=== PATIENT | female | born 1940 | race Caucasian/White ===

== ENCOUNTER → 2017-11-01 09:50 | Outpatient (CLI) | payer MEDICARE, MEDICAID, SELFPAY ==
--- NOTE | 2017-11-01 14:03 | CT_ITS ---
CT chest wo con HISTORY: Pulmonary fibrosis follow-up ITS.REASON: ABNORMAL LUNG IMAGING, COPD ORDERING PHYSICIAN: Vladimir Swenson MD PATIENT AGE: 77 years TECHNIQUE: Axial images obtained. Sagittal and coronal reformatted images are also generated and reviewed. CONTRAST: 75ml Isovue 370 I.V. COMPARISON: 10/07/2016 FINDINGS: Atherosclerotic changes involve the thoracic aorta and there are coronary artery calcifications. Normal heart size. No evidence of pericardial effusion. There are severe centrilobular emphysematous changes with bilateral bulla and scattered fibrotic changes there is some increasing peripheral density in the right upper lobe anteriorly and may represent ongoing fibrotic changes. Cannot exclude superimposed mild consolidation. There is a 6 mm nodular opacity within the right minor fissure Bullous changes are present in the lung bases posteriorly. Pulmonary fibrotic changes are noted in the left upper lobe slightly progressed. No acute bony anomalies. IMPRESSION: Extensive emphysematous changes with pulmonary fibrosis which is slightly worsening in the upper lobes with slight increased consolidation in the right upper lobe and left upper lobe medially. New nodular opacity within the right minor fissure measuring 6 mm probably related to fissural lymph node. Coronary artery disease
== END ==
PROVIDERS: Family Provider Nurse Practitioner Family; PCP Nurse Practitioner Family; Visit Provider Internal Medicine
DX: J43.9 Emphysema, unspecified (principal); R91.8 Other nonspecific abnormal finding of lung field
CPT/HCPCS: 71250; 94726

== ENCOUNTER → 2017-11-14 14:36 | Outpatient (POV) | payer MEDICARE, MEDICAID, SELFPAY | PROVIDERS: Family Provider Nurse Practitioner Family; PCP Nurse Practitioner Family; Visit Provider Internal Medicine | DX: Z00.00 Encounter for general adult medical examination without abnormal findings (principal) ==

== ENCOUNTER → 2017-11-20 14:10 | Outpatient (POV) | payer MEDICARE, MEDICAID, SELFPAY ==
[2017-11-20 15:03] VITALS: BP 135/69; PULSE 64; RESP 19; O2SAT 99; BMI 22.4
--- NOTE | 2017-11-20 16:55 | PC.PHONENOTE ---
called in Rx for Flexeril 10mg TID with 2 refills to [facility] in [place] and cancelled pt RX for Zanaflex.
--- NOTE | 2017-11-20 17:10 | P.CONS_ITS ---
[facility] Pain Management SOAP Note Subjective:: Patient is a pleasant 77-year-old white female who presents today to follow-up after medial branch blocks. Patient states she is doing very well after this injection she states that she gets 70-80% relief lasting over 8 weeks. Patient states she is having some muscle spasms. She was currently on Zanaflex. She would like to discuss potentially a different medication. Patient rates her pain a 4 out of 10 today. Patient states her pain is achy and dull. ROS General: no recent weight change, no fever, no sleep disturbances Respiratory: no cough, no shortness of air, no recurring pulmonary infections Cardiovascular/Peripheral Vascular: No chest pain, No palpitations, no edema, no shortness of breath. Gastrointestinal: no incontinence, normal bowel movements reported Genitourinary: no incontinence Musculoskeletal: Back pain Psychiatric: normal mood/ affect, Neurological: [denies weakness in extremities], and she has balance issues at times Objective:: Physical Exam General: Alert and oriented x3, no acute distress, pleasant and cooperative, [ on room air] Lungs: Resps E/U, Symmetrical chest expansion, Eyes: PERRL Musculoskeletal: Flexion and extension of lumbar spine somewhat guarded secondary to pain, deep tendon reflexes normal, strength in upper and lower extremities [5/5], [abnormal gait noted] Neurological: speech clear, apron trimmer equal, no gross sensory deficits Assessment:: Degenerative disc disease of the lumbar spine, lumbar radiculopathy, muscle spasm Plan:: We will discontinue the patient's Zanaflex and start her on Flexeril 10 mg 1 p.o. 3 times daily. Patient is also taking tramadol 50 mg 1 p.o. 3 times daily. She states she is having no side effects. Patient is not in need of any prescriptions today patient's [facility] #[id number] reviewed and appropriate. We will have the patient follow-up in 3 months. Patient will call us if she needs an injection before this. This note was dictated using voice recognition software may contain errors or omissions
== END ==
PROVIDERS: Family Provider Nurse Practitioner Family; PCP Nurse Practitioner Family; Visit Provider Clinical Nurse Specialist Family Health
DX: M54.16 Radiculopathy, lumbar region (principal)
CPT/HCPCS: 99212

== ENCOUNTER → 2017-12-13 07:20 | Outpatient (CLI) | payer MEDICARE, MEDICAID, SELFPAY ==
--- NOTE | 2017-12-13 07:28 | NM_ITS ---
History and Indications: Coronary artery disease, hypertension, hyperlipidemia and chest pain Procedure: Patient received a 0.4 mg of Lexiscan, resting heart rate was 67 bpm resting blood pressure 163/88, with Lexiscan maximum heart rate achieved was 87 bpm is less than 85% of the maximum predicted heart rate and a blood pressure was 130/69. With Lexiscan patient complained of mild shortness of breath and stomach discomfort. Electrocardiogram: Resting electrocardiogram showed sinus rhythm, with Lexiscan there is less than 1.[address] segment depression noted from the baseline EKG. The EKG portion of the Lexiscan Myoview is nondiagnostic. Cardiac stress and resting SPECT images: Cardiac stress and rest SPECT images were obtained using technetium 99 Myoview 10.6 mCi at rest and 31.7 mCi at stress, gated SPECT further analysis of segmental wall motion and calculation of the ejection fraction also done. Cardiac stress and rest images show a mild fixed defect in the anterior wall with normal contractility in the gated SPECT is likely secondary to soft tissue attenuation, no reversible ischemia seen. Computer derived ejection fraction is over 65% with no obvious regional wall motion abnormality, right ventricle is mildly enlarged with normal contractility. Conclusion: 1. The EKG portion of the Lexiscan Myoview is nondiagnostic. 2. No obvious scintigraphic evidence of reversible ischemia seen, obturator derived ejection fraction is over 65% with no obvious regional wall motion abnormality, right ventricle is mildly enlarged with normal contractility.
--- NOTE | 2017-12-13 07:57 | HMH.ITSHM ---
LEVOTHYROXINE CELEBREX ASA ATORVASTATIN TRAMADOL LOSARTAN GABAPENTIN POTASSIUM METOPROLOL TIZANIDINE RAPRENATAL MONTELUKAST NASAL SPRAY VENTOLIN
--- NOTE | 2017-12-13 08:35 | CA_ITS ---
PROCEDURE: 2-D M-mode and color Doppler study INDICATIONS FOR THE TEST: Chest pain X COPDX Heart Murmur Tobacco SmokingEX Palpitations Fatigue Syncope Edema Hypertension Diabetes Mellitus Rheumatic Fever SOB GUZMÁN Obesity HyperlipidemiaX Family History HD Additional History CAD PATIENT INFORMATION HEIGHT: 60 WEIGHT:118 GENDER: Female B/P:135/73 2-D/M-MODE INTERPRETATION: 2-D MEASUREMENTS OBSERVED VALUES IN CMS Right Ventricular Dimension (RVDd) 2.0 Interventricular Septum (Thickness)(IVsd) .7 Left Ventricular Internal Dimensions(LVIDd) 5.3 Left Ventricular Posterior Wall (Thickness)(LVPWd) .8 Aortic Root 3.8 Aortic Cusp Separation 1.6 Left Atrial Dimensions (LAD) 2.5 2D 1. Left atrium is qualitatively mildly enlarged, left ventricle is normal size, there is no concentric left ventricular hypertrophy, visually estimated ejection fraction 55% with no obvious regional wall motion abnormality. 2. The right atrium and right ventricle are mildly enlarged with normal contractility. 3. The aortic valve is minimally thickened and fibrosed. 4. The mitral and tricuspid valve leaflets are minimally thickened. 5. The pulmonic valve is poorly visualized. 6. No significant pericardial effusion noted. DOPPLER INTERROGATION: Aortic, mitral and tricuspid valvular presence of trace aortic, mild mitral and tricuspid regurgitation, calculated right ventricular systolic pressure 62 mmHg consistent with moderate pulmonary hypertension, grade 1 diastolic dysfunction seen with tissue Doppler evidence of raised left atrial pressure. CONCLUSION: 1. Mild biatrial enlargement, normal left ventricular size, visually estimated ejection fraction 55% with no obvious regional wall motion abnormality, grade 1 diastolic dysfunction seen with tissue Doppler evidence of raised left atrial pressure. 2. Mildly enlarged right ventricle with normal contractility. 3. Trace aortic, mild mitral and tricuspid regurgitation, calculated right ventricular systolic pressure 62 mmHg consistent with moderate pulmonary hypertension. 4. No significant pericardial effusion noted.
== END ==
PROVIDERS: Family Provider Nurse Practitioner Family; PCP Nurse Practitioner Family; Visit Provider Internal Medicine
DX: R07.9 Chest pain, unspecified (principal)
CPT/HCPCS: 78454; 93306; A9502; J2785

== ENCOUNTER → 2017-12-15 15:25 | Outpatient (CLI) | payer MEDICARE, MEDICAID, SELFPAY ==
[2017-12-15 18:33] LABS: Alanine Aminotransferase 22 U/L (12-78); Albumin/Globulin Ratio 1.4 (1.1-1.8); Alkaline Phosphatase 85 U/L (46-116); Anion Gap 10.1 mEq/L (5-15); Aspartate Amino Transferase 23 U/L (15-37); Bilirubin,Total 0.6 mg/dL (0.2-1.0); Blood Urea Nitrogen 32 mg/dL (7-18); Calcium 9.1 mg/dL (8.5-10.1); Carbon Dioxide 30 mmol/L (21.0-32.0); Chloride 105 mmol/L (98-107); Chol/HDL Ratio 2.1 (1-3.5); Cholesterol 118 mg/dL (140-200); Creatinine,Serum 0.69 mg/dL (0.55-1.02); Estimated Glomerular Filt Rate 82 ml/min (>60); Free T4 (Free Thyroxine) 1.21 ng/dl (0.76-1.46); GFR (African American) 100 ML/MIN (>60); Globulin 2.9 gm/dl (1.3-3.2); Glucose 85 mg/dL (74-106); HDL Cholesterol 55 mg/dL (29-89); LDL Cholesterol 53 mg/dL (0-130); Potassium 4.1 mmoL/L (3.5-5.1); Sodium 141 mmol/L (136-145); Thyroid Stimulating Hormone 0.27 uIU/ml (0.358-3.740); Total Protein,Serum 6.9 gm/dL (6.4-8.2); Triglycerides 49 mg/dL (30-200); VLDL Cholesterol 10 mg/dL (0-40)
[2017-12-15 22:20] LABS: Basophils % 0.6 % (0.1-2.0); Eosinophils # 0.2 K/mm3 (0.0-0.4); Eosinophils % 6.3 % (0.1-12.0); Hematocrit 42.1 % (37.0-47.0); Hemoglobin 13.5 g/dL (12.2-16.2); Lymphocytes # 1.4 K/mm3 (0.7-4.5); Mean Corpuscular Hemoglobin 31.8 pg (27.0-31.2); Mean Corpuscular Volume 99.2 fl (81-99); Mean Platelet Volume 9.6 fl (7.4-10.4); Monocytes # 0.2 K/mm3 (0.1-1.0); Monocytes % 5.5 % (1.7-9.3); Neutrophils # 1.4 K/mm3 (1.8-7.8); Neutrophils % 43.6 % (37.0-80.0); Platelet Count 164 K/mm3 (142-424); Red Blood Count 4.24 M/mm3 (4.20-5.40); Red Cell Distribution Width 12.6 % (11.5-17.5); White Blood Count 3.3 K/mm3 (4.8-10.8)
[2017-12-19 15:37] LABS: Vitamin D 25 Hydroxy 32.9 ng/mL (30.0-100.0)
== END ==
PROVIDERS: Visit Provider Nurse Practitioner Family
DX: R94.31 Abnormal electrocardiogram [ECG] [EKG] (principal); R53.83 Other fatigue; R00.1 Bradycardia, unspecified; E78.5 Hyperlipidemia, unspecified
CPT/HCPCS: 80053; 80061; 82652; 84439; 84443; 85025

== ENCOUNTER → 2018-01-17 15:49 | Outpatient (CLI) | payer MEDICARE, MEDICAID, SELFPAY ==
[2018-01-17 16:25] LABS: Basophils % 0.5 % (0.1-2.0); Eosinophils # 0.2 K/mm3 (0.0-0.4); Eosinophils % 4.9 % (0.1-12.0); Hematocrit 42.3 % (37.0-47.0); Hemoglobin 13.6 g/dL (12.2-16.2); Lymphocytes # 1.4 K/mm3 (0.7-4.5); Lymphocytes % 41.6 K/mm3 (10-50); Mean Corpuscular HGB Conc 32.2 g/dL (31.8-35.4); Mean Corpuscular Hemoglobin 30.7 pg (27.0-31.2); Mean Corpuscular Volume 95.2 fl (81-99); Mean Platelet Volume 8.1 fl (7.4-10.4); Monocytes # 0.2 K/mm3 (0.1-1.0); Monocytes % 4.9 % (1.7-9.3); Neutrophils # 1.6 K/mm3 (1.8-7.8); Neutrophils % 48.2 % (37.0-80.0); Platelet Count 159 K/mm3 (142-424); Red Blood Count 4.45 M/mm3 (4.20-5.40); Red Cell Distribution Width 12.7 % (11.5-17.5); White Blood Count 3.4 K/mm3 (4.8-10.8)
[2018-01-17 17:22] LABS: Alanine Aminotransferase 22 U/L (12-78); Albumin Level 3.9 gm/dL (3.4-5.0); Albumin/Globulin Ratio 1.3 (1.1-1.8); Alkaline Phosphatase 85 U/L (46-116); Anion Gap 9.5 mEq/L (5-15); Aspartate Amino Transferase 26 U/L (15-37); Bilirubin,Total 0.4 mg/dL (0.2-1.0); Blood Urea Nitrogen 25 mg/dL (7-18); Calcium 9.4 mg/dL (8.5-10.1); Carbon Dioxide 32 mmol/L (21.0-32.0); Chloride 108 mmol/L (98-107); Creatinine,Serum 0.72 mg/dL (0.55-1.02); Estimated Glomerular Filt Rate 79 ml/min (>60); GFR (African American) 95 ML/MIN (>60); Glucose 90 mg/dL (74-106); Potassium 4.5 mmoL/L (3.5-5.1); Sodium 145 mmol/L (136-145); Total Protein,Serum 6.9 gm/dL (6.4-8.2)
[2018-01-19 16:25] LABS: Albumin 3.8 g/dL (2.9-4.4); Alpha-1-Globulin 0.2 g/dL (0.0-0.4); Alpha-2-Globulin 0.9 g/dL (0.4-1.0); Protein, Total 6.7 g/dL (6.0-8.5)
== END ==
PROVIDERS: Visit Provider Internal Medicine
DX: D72.819 Decreased white blood cell count, unspecified (principal)
CPT/HCPCS: 36415; 80053; 84165; 85025

== ENCOUNTER 2018-01-22 23:51 | Observation (INO) ==
[2018-01-23 00:29] LABS: Basophils % 0.3 % (0.1-2.0); Eosinophils # 0.1 K/mm3 (0.0-0.4); Eosinophils % 0.7 % (0.1-12.0); Hematocrit 43.5 % (37.0-47.0); Hemoglobin 14.3 g/dL (12.2-16.2); Lymphocytes # 1.6 K/mm3 (0.7-4.5); Lymphocytes % 19.2 K/mm3 (10-50); Mean Corpuscular HGB Conc 32.8 g/dL (31.8-35.4); Mean Corpuscular Hemoglobin 31.2 pg (27.0-31.2); Mean Corpuscular Volume 95.1 fl (81-99); Mean Platelet Volume 8.3 fl (7.4-10.4); Monocytes # 0.4 K/mm3 (0.1-1.0); Monocytes % 4.5 % (1.7-9.3); Neutrophils # 6.2 K/mm3 (1.8-7.8); Neutrophils % 75.3 % (37.0-80.0); Platelet Count 156 K/mm3 (142-424); Red Blood Count 4.58 M/mm3 (4.20-5.40); Red Cell Distribution Width 12.8 % (11.5-17.5); White Blood Count 8.3 K/mm3 (4.8-10.8)
[2018-01-23 00:37] LABS: Appearance,Urine CLEAR (Clear); Bilirubin,Urine Negative (Negative); Blood, Urine Negative (Negative); Color,Urine YELLOW (Yellow); Glucose,Urine (UA) Negative (Negative); Ketones,Urine Negative (Negative); Leukocyte Esterase,Urine Negative (Negative); Microscopic, Urine URINE MICROSCOPIC (MICROSCOPIC); PH,Urine 6.5 (5.0-8.5); Protein,Urine Negative (Negative); Specific Gravity, Urine <= 1.005 (1.005-1.030); Urobilinogen,Urine 0.2 EU/dl (0.2)
[2018-01-23 00:45] LABS: Albumin Level 4.2 gm/dL (3.4-5.0); Albumin/Globulin Ratio 1.1 (1.1-1.8); Anion Gap 11.7 mEq/L (5-15); Bilirubin,Total 0.7 mg/dL (0.2-1.0); Calcium 9.5 mg/dL (8.5-10.1); Globulin 3.8 gm/dl (1.3-3.2); Potassium 3.7 mmoL/L (3.5-5.1)
[2018-01-23 00:47] LABS: Bacteria,Urine Trace /lpf; RBC,Urine Occasional #/hpf (0-3)
--- NOTE | 2018-01-23 02:15 | Emergency Department Note ---
ED Disposition Clinical Impression: Colitis Disposition: Admitted as Observation Condition on Discharge: Good - Critical Care Critical Care Time: No Attestation: On 01/22/18, the high probability of a clinically significant, sudden or life threatening deterioration of the following system(s) required my full and direct attention, intervention and personal management. The time I documented below is in addition to time spent performing reported procedures but includes the following listed in this critical care notation. Medical Decision Making - Medical Records Medical records reviewed: Yes: I reviewed the patient's medical records. - [place] Inquiry Pt receiving controlled substance: No Vital Signs: 01/23/18 00:03 01/23/18 02:37 Temperature 98.6 F 98.3 F Temperature Source Oral Oral Pulse Rate [Right Radial] 89 84 Respiratory Rate 14 15 Blood Pressure [Right Arm] 150/81 152/84 Blood Pressure Mean [Right Arm] 104 106 Blood Pressure Source [Right Arm] Automatic Cuff Automatic Cuff Blood Pressure Position [Right Arm] Sitting Sitting 02 Sat by Pulse Oximetry 96 97 Oxygen Delivery Method Room Air Room Air - Lab Data Lab results reviewed: Yes: I reviewed the patient's lab results. Lab Results 01/23/18 00:00: Urine Color Yellow, Urine Appearance Clear, Urine pH 6.5, Ur Specific [place] <= 1.005, Urine Protein Negative, Urine Glucose (UA) Negative, Urine Ketones Negative, Urine Blood Negative, Urine Nitrate Negative, Urine Bilirubin Negative, Urine Urobilinogen 0.2, Ur Leukocyte Esterase Negative, Urine RBC Occasional, Urine Bacteria Trace 01/23/18 00:10: WBC 8.3, RBC 4.58, Hgb 14.3, Hct 43.5, MCV 95.1, MCH 31.2, MCHC 32.8, RDW 12.8, Plt Count 156, MPV 8.3, Neut % (Auto) 75.3, Lymph % (Auto) 19.2 , [place] % (Auto) 4.5, Eos % (Auto) 0.7, Baso % (Auto) 0.3, Neut # (Auto) 6.2, Lymph # (Auto) 1.6, [place] # (Auto) 0.4, Eos # (Auto) 0.1, Baso # (Auto) 0.0 01/23/18 00:10: Sodium 138, Potassium 3.7, Chloride 102, Carbon Dioxide 28, Anion Gap 11.7, BUN 21 H, Creatinine 0.76, Estimated Creat Clear 40, Estimated GFR 74, Est GFR ( Amer) 89, Glucose 91, Calcium 9.5, Total Bilirubin 0.7 , AST 22, ALT 22, Alkaline Phosphatase 86, Total Protein 8.0, Albumin 4.2, Globulin 3.8 H, Albumin/Globulin Ratio 1.1, Amylase 65, Lipase 82 01/23/18 02:20: Lactic Acid 0.5 Result diagrams: 01/23/18 00:10 01/23/18 00:10 Orders (Tests/Meds): ED MEDICATIONS Generic Name Dose Route Start Last Admin Trade Name Freq PRN Reason Stop Dose Admin Sodium Chloride 1,000 mls @ 150 mls/hr 01/23/18 00:30 01/23/18 00:39 Sod Chlor 0.9% 1000ml Bag IV 01/23/18 07:09 150 mls/hr .Q6H40M OWEN Administration Metronidazole 100 mls @ 100 mls/hr 01/23/18 03:00 Flagyl 500mg/100ml Ivpb IV 02/06/18 02:59 Q8H OWEN Protocol Ceftriaxone Sodium 1 gm/ 50 mls @ 100 mls/hr 01/23/18 03:00 Sodium Chloride IV 02/06/18 02:59 Q24H OWEN Protocol Discontinued Medications Generic Name Dose Route Start Last Admin Trade Name Freq PRN Reason Stop Dose Admin Ketorolac Tromethamine 30 mg 01/23/18 02:28 01/23/18 02:59 Toradol 30mg/Ml Vial IV 01/23/18 02:29 Not Given ONCE ONE Morphine Sulfate 2 mg 01/23/18 02:31 01/23/18 02:37 Morphine 2mg/Ml Syringe IV 01/23/18 02:32 2 mg ONCE ONE Administration Ondansetron HCl 4 mg 01/23/18 02:31 01/23/18 02:37 Zofran 4mg/2ml Vial IV 01/23/18 02:32 4 mg ONCE ONE Administration ORDERS Category Date Time Status CT abdomen pelvis wo con Stat Cat Scan 01/23/18 00:16 Taken ESR [Erythrocyte Sedimentation Rate] Stat Lab 01/23/18 00:00 Received - CT Data CT Scan: Abdomen, Pelvis Time Received: 03:[address] Reviewed: Yes: I have viewed the radiologist's interpretation Preliminary Findings: Abnormal (colitis ) Nausea/Vomiting/Diarrhea HPI - General Chief complaint: Abdominal Pain Stated complaint: Pain in right side Time Seen by Provider: 01/23/18 02:11 Mode of Arrival: Ambulatory Source of Information: Patient, Relative, Medical Record Limitations: No Limitations Description of Symptoms (Recalled from ER Triage Doc. by RN): Pt reports right sided abdominal pain - History of Present Illness HPI Narrative: rt sided abd pain which started this afternoon with nausea but no vomiting and no rash or fever and no urinary sx MD complaint: nausea, abdominal pain Onset (ago): day(s) Associated Abdominal Pain: Yes Location of pain: RLQ Severity: moderate Quality: aching Consistency: intermittent - Related Data Home Medications Medication Instructions Recorded Confirmed aspirin 81 mg tablet,delayed 81 mg PO QDAY 10/11/17 01/23/18 release fluticasone 50 mcg/actuation nasal 50 mcg INTRANASAL QDAY PRN 10/11/17 01/23/18 spray,suspension gabapentin 300 mg capsule 300 mg PO TID 10/11/17 01/23/18 losartan 100 mg tablet 100 mg PO QDAY 10/11/17 01/23/18 potassium chloride ER 20 mEq 20 meq PO QDAY 10/11/17 01/23/18 tablet,extended release(part/cryst) tizanidine 4 mg capsule 4 mg PO Q8H 10/11/17 01/23/18 tramadol 50 mg tablet 25 mg PO Q6H 10/11/17 01/23/18 albuterol sulfate HFA 90 1 puff INHALATION Q4-6H PRN 12/05/17 01/23/18 mcg/actuation aerosol inhaler atorvastatin 20 mg tablet 20 mg PO QHS tab 12/05/17 01/23/18 cyclobenzaprine 10 mg tablet 10 mg PO TID 12/05/17 01/23/18 montelukast 10 mg tablet 10 mg PO QHS 12/05/17 01/23/18 Celecoxib 200 mg PO QDAY 01/23/18 01/23/18 Levothyroxine Sodium [Tirosint] 75 mcg PO QDAY 01/23/18 01/23/18 Metoprolol Succinate [Toprol XL 25 mg PO DAILY 01/23/18 01/23/18 50mg Tablet] Allergies Allergy/AdvReac Type Severity Reaction Status Date / Time carbamazepine Allergy Intermediate I-ITCHING Verified 01/23/18 00:09 promethazine Allergy Mild "MAKES Verified 01/23/18 00:09 HYPER" H History I have reviewed the patient's past medical history: Yes Medical History: Reports:: Chronic Obstructive Pulmonary Disease (COPD), Hypertension Other Medical History: Reports: Other Laterality Cases: Right: Carpal Tunnel Release Other Surgeries: Yes: Cardiac Catheterization Amputation: No Fractures: No Comment: Knee surgery 04/2016 - Social History Smoking Status: Former smoker Alcohol Intake: never Substance Use Type: denies use - Psychiatric History Expresses thoughts of harming self/others: None Suicide Plan Description: No Plan Family Hx:: Hypertension, Cancer ROS Obtained: No All systems reviewed & no additional complaints - Constitutional Constitutional: Denies fever(s) - Eyes Eyes: Denies change in vision - ENT Ears, Nose, Mouth, and Throat: Denies sore throat - Cardiovascular Cardiovascular: Denies chest pain - Respiratory Respiratory: No dyspnea - Gastrointestinal Gastrointestingal: Reports: abdominal pain, nausea. Denies: diarrhea, bright red blood in stools, black, tarry stools, vomiting - Genitourinary Female Genitourinary: Denies hematuria - Musculoskeletal Musculoskeletal: Denies joint pain, Denies joint swelling - Integumentary/Breasts Skin/Breast: Denies rash - Neurologic Neurologic: Denies seizure-like activity Physical Exam - General General appearance: in no apparent distress - Head Head exam: normocephalic - Eye Eye exam: Present: PERRL, EOMI - ENT ENT exam: Present: mucous membranes dry - Neck Neck exam: Present: trachea midline - Respiratory Respiratory exam: Absent: respiratory distress - Cardiovascular Cardiovascular exam: Present: regular rate, systolic murmur - Abdominal Exam Abdominal exam: Present: soft, tenderness. Absent: guarding, rebound Abdominal tenderness: Present: RLQ, moderate - Extremities Exam Extremities exam: Present: normal inspection - Back Exam Back exam: Absent: CVA tenderness (R), CVA tenderness (L) - Neurological Exam Neurological exam: Present: alert, oriented X3, CN II-XII intact - Skin Skin exam: Absent: rash
[2018-01-23 06:56] LABS: Anion Gap 9.4 mEq/L (5-15); Basophils % 0.3 % (0.1-2.0); Eosinophils # 0.1 K/mm3 (0.0-0.4); Eosinophils % 0.9 % (0.1-12.0); Lymphocytes # 1.5 K/mm3 (0.7-4.5); Lymphocytes % 19.7 K/mm3 (10-50); Mean Corpuscular HGB Conc 33.8 g/dL (31.8-35.4); Mean Corpuscular Volume 94.6 fl (81-99); Mean Platelet Volume 8.2 fl (7.4-10.4); Monocytes # 0.4 K/mm3 (0.1-1.0); Monocytes % 4.8 % (1.7-9.3); Neutrophils # 5.7 K/mm3 (1.8-7.8); Neutrophils % 74.3 % (37.0-80.0); Platelet Count 154 K/mm3 (142-424); Potassium 3.4 mmoL/L (3.5-5.1); Red Blood Count 4.01 M/mm3 (4.20-5.40); White Blood Count 7.6 K/mm3 (4.8-10.8)
[2018-01-23 07:07] LABS: Hematocrit 38.6 % (37.0-47.0); Hemoglobin 12.8 g/dL (12.2-16.2)
--- NOTE | 2018-01-23 08:22 | Pharmacy Consult Notes ---
[facility] Pharmacy VTE Monitoring - Patient Demographics Admission date: 01/23/18 Report Date: 01/23/18 Time: 08:22 Allergies/Adverse Reactions: Patient Allergies carbamazepine Allergy (Intermediate, Verified 01/23/18 00:09) I-ITCHING promethazine Allergy (Mild, Verified 01/23/18 00:09) "MAKES HYPER" Height: 1.52 m Weight: 53.07 kg Patient Problems: Current Active Problems Colitis (Acute) - VTE Risk Labs: VTE Related Lab Results Hgb 12.8 g/dL (12.2-16.2) D 01/23/18 06:11 Hct 38.6 % (37.0-47.0) 01/23/18 06:11 Plt Count 154 K/mm3 (142-424) 01/23/18 06:11 BUN 16 mg/dL (7-18) 01/23/18 06:11 Creatinine 0.65 mg/dL (0.55-1.02) 01/23/18 06:11 Estimated Creat Clear 39 mL/min (0-300) 01/23/18 06:11 VTE Risk Level: Low Risk - Prophylaxis VTE Prophylaxis Ordered?: Yes Types of VTE Prophylaxis: TEDS Knee High Location of Applied Device: Bilateral Lower Extremeties - VTE Diagnosis Confirmed Treatment or plan recommended: Continue Current Treatment
--- NOTE | 2018-01-23 08:55 | History & Physical Report ---
*Admission Date: 01/23/18 *Chief complaint: abd pain *History of present illness: this wf was seen in the ed last pm with progressive abd pain with nausea - no diarrhea - no hx of melena and no diarrhea - no wt loss -pt was seen in the ed with pain and dec po intake and noted to have abn ct with possible colitis vs neoplasm [facility] History I have reviewed the patient's past medical history: Yes Medical History: Reports:: Congestive Heart Failure, Chronic Obstructive Pulmonary Disease (COPD), Hyperlipidemia, Hypertension, Palpitations Other Medical History: Reports: Sinus Problems, Other Laterality Cases: Right: Carpal Tunnel Release Other Surgeries: Yes: Cardiac Catheterization Amputation: No Fractures: No - *Social History Educational Level: Attended High School Smoking Status: Former smoker Tobacco Type: cigarettes Smoking End Date: 1988 Alcohol Intake: never Substance Use Type: denies use Occupational Status: disabled Housing: apartment Household Members: none - Psychiatric History Expresses thoughts of harming self/others: None Suicide Plan Description: No Plan *Family Hx:: Hypertension, Cancer Review of Systems - Review of Systems Review of systems:: pertinent systems reviewed and negative unless documented below - Constitutional Denies fever(s) - Eyes Denies change in vision - ENT Denies sore throat - *Cardiovascular Denies chest pain at rest - *Respiratory Denies cough - *Gastrointestinal Reports abdominal pain, Reports nausea - *Genitourinary Denies blood in urine - *Musculoskeletal Denies joint pain, Denies joint swelling - Integumentary/Breasts Denies rash - *Neurologic Denies seizure-like activity - Psychiatric Denies anxiety Meds Home Medications Medication Instructions Recorded Confirmed Type aspirin 81 mg tablet,delayed 81 mg PO DAILY 10/11/17 01/23/18 History release fluticasone 50 mcg/actuation nasal 1 spray NOSTRIL-B DAILY 10/11/17 01/23/18 History spray,suspension gabapentin 300 mg capsule 300 mg PO TID 10/11/17 01/23/18 History losartan 100 mg tablet 100 mg PO DAILY 10/11/17 01/23/18 History potassium chloride ER 20 mEq 20 meq PO DAILY 10/11/17 01/23/18 History tablet,extended release(part/cryst) tizanidine 4 mg capsule 4 mg PO TID 10/11/17 01/23/18 History tramadol 50 mg tablet 25 mg PO QID 10/11/17 01/23/18 History albuterol sulfate HFA 90 1 puff INHALATION Q4-6H PRN 12/05/17 01/23/18 History mcg/actuation aerosol inhaler atorvastatin 20 mg tablet 20 mg PO HS tab 12/05/17 01/23/18 History cyclobenzaprine 10 mg tablet 10 mg PO TID 12/05/17 01/23/18 History montelukast 10 mg tablet 10 mg PO HS 12/05/17 01/23/18 History Celecoxib 200 mg PO DAILY 01/23/18 01/23/18 History Levothyroxine Sodium [Tirosint] 75 mcg PO DAILY 01/23/18 01/23/18 History Metoprolol Succinate [Toprol XL 25 mg PO DAILY 01/23/18 01/23/18 History 50mg Tablet] Allergies Allergy/AdvReac Type Severity Reaction Status Date / Time carbamazepine Allergy Intermediate I-ITCHING Verified 01/23/18 00:09 promethazine Allergy Mild "MAKES Verified 01/23/18 00:09 HYPER" Exam Vital signs and Labs for Last 24 Hours: Temp Pulse Resp BP Pulse Ox 99.0 F 82 18 125/70 95 01/23/18 07:41 01/23/18 07:41 01/23/18 07:41 01/23/18 07:41 01/23/18 07:41 Laboratory Results - last 24 hr 01/23/18 00:00: Urine Color Yellow, Urine Appearance Clear, Urine pH 6.5, Ur Specific [place] <= 1.005, Urine Protein Negative, Urine Glucose (UA) Negative, Urine Ketones Negative, Urine Blood Negative, Urine Nitrate Negative, Urine Bilirubin Negative, Urine Urobilinogen 0.2, Ur Leukocyte Esterase Negative, Urine RBC Occasional, Urine Bacteria Trace 01/23/18 00:00: ESR 16 01/23/18 00:10: WBC 8.3, RBC 4.58, Hgb 14.3, Hct 43.5, MCV 95.1, MCH 31.2, MCHC 32.8, RDW 12.8, Plt Count 156, MPV 8.3, Neut % (Auto) 75.3, Lymph % (Auto) 19.2 , [place] % (Auto) 4.5, Eos % (Auto) 0.7, Baso % (Auto) 0.3, Neut # (Auto) 6.2, Lymph # (Auto) 1.6, [place] # (Auto) 0.4, Eos # (Auto) 0.1, Baso # (Auto) 0.0 01/23/18 00:10: Sodium 138, Potassium 3.7, Chloride 102, Carbon Dioxide 28, Anion Gap 11.7, BUN 21 H, Creatinine 0.76, Estimated Creat Clear 40, Estimated GFR 74, Est GFR ( Amer) 89, Glucose 91, Calcium 9.5, Total Bilirubin 0.7 , AST 22, ALT 22, Alkaline Phosphatase 86, Total Protein 8.0, Albumin 4.2, Globulin 3.8 H, Albumin/Globulin Ratio 1.1, Amylase 65, Lipase 82 01/23/18 02:20: Lactic Acid 0.5 01/23/18 06:11: WBC 7.6, RBC 4.01 L, Hgb 12.8 D, Hct 38.6, MCV 94.6, MCH 32.0 H , MCHC 33.8, RDW 13.0, Plt Count 154, MPV 8.2, Neut % (Auto) 74.3, Lymph % (Auto ) 19.7, [place] % (Auto) 4.8, Eos % (Auto) 0.9, Baso % (Auto) 0.3, Neut # (Auto) 5.7, Lymph # (Auto) 1.5, [place] # (Auto) 0.4, Eos # (Auto) 0.1, Baso # (Auto) 0.0 01/23/18 06:11: Sodium 140, Potassium 3.4 L, Chloride 105, Carbon Dioxide 29, Anion Gap 9.4, BUN 16, Creatinine 0.65, Estimated Creat Clear 39, Estimated GFR 88, Est GFR ( Amer) 107 D, Glucose 104, Magnesium 1.7 I & O for Last 24 hours: Intake & Output 01/20/18 01/21/18 01/22/18 01/23/18 11:59 11:59 11:59 11:59 Intake Total 0 / 0 Balance 0 / 0 Weight 117 lb - Constitutional no acute distress - *Routine HEENT Exam Head: Present: normocephalic Eye: Present: EOMI, PERRL ENT: Present: mucous membranes dry - *Routine Neck Exam Present: supple - *Routine Respiratory Exam Present: CTA bilaterally - *Routine Cardiovascular Exam Present: RRR, murmur, S4 - *Routine Abdominal Exam Present: soft, tenderness - *Routine Extremities Exam Absent: calf tenderness - *Routine Skin Exam Present: intact - *Routine Neurological Exam Present: alert, oriented X3, CN II-XII intact - Routine Psychiatric Exam Present: normal affect H&P: Result - Labs Labs: Short CBC 01/23/18 01/23/18 Range/Units 00:10 06:11 WBC 8.3 7.6 (4.8-10.8) K/mm3 Hgb 14.3 12.8 D (12.2-16.2) g/dL Hct 43.5 38.6 (37.0-47.0) % Plt Count 156 154 (142-424) K/mm3 BMP 01/23/18 01/23/18 00:10 06:11 Sodium 138 140 Potassium 3.7 3.4 L Chloride 102 105 Carbon Dioxide 28 29 BUN 21 H 16 Creatinine 0.76 0.65 Glucose 91 104 Calcium 9.5 Liver Function 01/23/18 Range/Units 00:10 Total Bilirubin 0.7 (0.2-1.0) mg/dL AST 22 (15-37) U/L ALT 22 (12-78) U/L Alkaline Phosphatase 86 (46-116) U/L Albumin 4.2 (3.4-5.0) gm/dL Urine 01/23/18 Range/Units 00:00 Urine Color Yellow (Yellow) Urine Appearance Clear (Clear) Urine pH 6.5 (5.0-8.5) Ur Specific [place] <= 1.005 (1.005-1.030) Urine Protein Negative (Negative) Urine Glucose (UA) Negative (Negative) Assessment and Plan (1) Colitis Current visit: Yes Status: Acute Category: Medical Code(s): K52.9 - Noninfective gastroenteritis and colitis, unspecified
--- NOTE | 2018-01-23 13:43 | Consult Report ---
*Admission Date: 01/23/18 *Chief complaint: Abdominal pain and nausea *History of present illness: This is a 77-year-old female seen in consultation from Dr. Charles for evaluation regarding colitis versus colonic neoplasm. She presented to the emergency department overnight with increasing abdominal pain. She describes the pain as "sharp and crampy". Severity ranges between 3 and 9 out of 10. Duration "minutes to hours". No diarrhea. No melena. No bright red blood per rectum. No definitive recent changes in bowel habits. Over the past few weeks her weight has been stable, but she does claim to have lost "quite a bit of weight without dieting" over the past year. Review of Systems - Constitutional Denies night sweats - Eyes Denies change in vision - *Cardiovascular Denies chest pain - *Respiratory Denies cough - *Gastrointestinal Reports abdominal pain, Reports nausea, Denies vomiting blood, Denies bright, red blood in stools, Denies black, tarry stools - *Neurologic Denies seizure-like activity - Hematologic/Lymphatic Denies easy bleeding [facility] History Medical History: Reports:: Congestive Heart Failure, Chronic Obstructive Pulmonary Disease (COPD), Hyperlipidemia, Hypertension, Palpitations Other Medical History: Reports: Sinus Problems, Other Laterality Cases: Right: Carpal Tunnel Release Other Surgeries: Yes: Cardiac Catheterization Amputation: No Fractures: No - *Social History Educational Level: Attended High School Smoking Status: Former smoker Tobacco Type: cigarettes Smoking End Date: 1988 Alcohol Intake: never Substance Use Type: denies use Occupational Status: disabled Housing: apartment Household Members: none - Psychiatric History Expresses thoughts of harming self/others: None Suicide Plan Description: No Plan *Family Hx:: Hypertension, Cancer Meds Home Medications Medication Instructions Recorded Confirmed Type aspirin 81 mg tablet,delayed 81 mg PO DAILY 10/11/17 01/23/18 History release gabapentin 300 mg capsule 300 mg PO TID 10/11/17 01/23/18 History losartan 100 mg tablet 100 mg PO DAILY 10/11/17 01/23/18 History tizanidine 4 mg capsule 4 mg PO TID 10/11/17 01/23/18 History tramadol 50 mg tablet 25 mg PO QID 10/11/17 01/23/18 History albuterol sulfate HFA 90 1 puff INHALATION Q4-6H PRN 12/05/17 01/23/18 History mcg/actuation aerosol inhaler atorvastatin 20 mg tablet 20 mg PO HS tab 12/05/17 01/23/18 History cyclobenzaprine 10 mg tablet 10 mg PO TID 12/05/17 01/23/18 History montelukast 10 mg tablet 10 mg PO HS 12/05/17 01/23/18 History Celecoxib 200 mg PO DAILY 01/23/18 01/23/18 History Fluticasone Propionate [Flonase 1 spr NS DAILY 01/23/18 01/23/18 History 50mcg nasal spray 16gm] Levothyroxine Sodium [Tirosint] 75 mcg PO DAILY 01/23/18 01/23/18 History Metoprolol Succinate [Toprol XL 25 mg PO BID 01/23/18 01/23/18 History 50mg Tablet] Potassium Chloride [Klor-con 20 20 meq PO DAILY 01/23/18 01/23/18 History mEq tablet] Allergies Allergy/AdvReac Type Severity Reaction Status Date / Time carbamazepine Allergy Intermediate I-ITCHING Verified 01/23/18 00:09 promethazine Allergy Mild "MAKES Verified 01/23/18 00:09 HYPER" Exam Vital signs and Labs for Last 24 Hours: Temp Pulse Resp BP Pulse Ox 99.0 F 82 18 125/70 95 01/23/18 07:41 01/23/18 07:41 01/23/18 07:41 01/23/18 07:41 01/23/18 07:41 Laboratory Results - last 24 hr 01/23/18 00:00: Urine Color Yellow, Urine Appearance Clear, Urine pH 6.5, Ur Specific [place] <= 1.005, Urine Protein Negative, Urine Glucose (UA) Negative, Urine Ketones Negative, Urine Blood Negative, Urine Nitrate Negative, Urine Bilirubin Negative, Urine Urobilinogen 0.2, Ur Leukocyte Esterase Negative, Urine RBC Occasional, Urine Bacteria Trace 01/23/18 00:00: ESR 16 01/23/18 00:10: WBC 8.3, RBC 4.58, Hgb 14.3, Hct 43.5, MCV 95.1, MCH 31.2, MCHC 32.8, RDW 12.8, Plt Count 156, MPV 8.3, Neut % (Auto) 75.3, Lymph % (Auto) 19.2 , [place] % (Auto) 4.5, Eos % (Auto) 0.7, Baso % (Auto) 0.3, Neut # (Auto) 6.2, Lymph # (Auto) 1.6, [place] # (Auto) 0.4, Eos # (Auto) 0.1, Baso # (Auto) 0.0 01/23/18 00:10: Sodium 138, Potassium 3.7, Chloride 102, Carbon Dioxide 28, Anion Gap 11.7, BUN 21 H, Creatinine 0.76, Estimated Creat Clear 40, Estimated GFR 74, Est GFR ( Amer) 89, Glucose 91, Calcium 9.5, Total Bilirubin 0.7 , AST 22, ALT 22, Alkaline Phosphatase 86, Total Protein 8.0, Albumin 4.2, Globulin 3.8 H, Albumin/Globulin Ratio 1.1, Amylase 65, Lipase 82 01/23/18 02:20: Lactic Acid 0.5 01/23/18 06:11: WBC 7.6, RBC 4.01 L, Hgb 12.8 D, Hct 38.6, MCV 94.6, MCH 32.0 H , MCHC 33.8, RDW 13.0, Plt Count 154, MPV 8.2, Neut % (Auto) 74.3, Lymph % (Auto ) 19.7, [place] % (Auto) 4.8, Eos % (Auto) 0.9, Baso % (Auto) 0.3, Neut # (Auto) 5.7, Lymph # (Auto) 1.5, [place] # (Auto) 0.4, Eos # (Auto) 0.1, Baso # (Auto) 0.0 01/23/18 06:11: Sodium 140, Potassium 3.4 L, Chloride 105, Carbon Dioxide 29, Anion Gap 9.4, BUN 16, Creatinine 0.65, Estimated Creat Clear 39, Estimated GFR 88, Est GFR ( Amer) 107 D, Glucose 104, Magnesium 1.7 I & O for Last 24 hours: Intake & Output 01/21/18 01/22/18 01/23/18 01/24/18 11:59 11:59 11:59 11:59 Intake Total 0 / 0 Balance 0 / 0 Weight 117 lb - Constitutional no acute distress - *Routine Respiratory Exam Absent: respiratory distress - *Routine Cardiovascular Exam Present: RRR - *Routine Abdominal Exam Present: soft, tenderness Results - Labs 01/23/18 06:11 01/23/18 06:11 Laboratory Results - last 24 hr 01/23/18 00:00: Urine Color Yellow, Urine Appearance Clear, Urine pH 6.5, Ur Specific [place] <= 1.005, Urine Protein Negative, Urine Glucose (UA) Negative, Urine Ketones Negative, Urine Blood Negative, Urine Nitrate Negative, Urine Bilirubin Negative, Urine Urobilinogen 0.2, Ur Leukocyte Esterase Negative, Urine RBC Occasional, Urine Bacteria Trace 01/23/18 00:00: ESR 16 01/23/18 00:10: WBC 8.3, RBC 4.58, Hgb 14.3, Hct 43.5, MCV 95.1, MCH 31.2, MCHC 32.8, RDW 12.8, Plt Count 156, MPV 8.3, Neut % (Auto) 75.3, Lymph % (Auto) 19.2 , [place] % (Auto) 4.5, Eos % (Auto) 0.7, Baso % (Auto) 0.3, Neut # (Auto) 6.2, Lymph # (Auto) 1.6, [place] # (Auto) 0.4, Eos # (Auto) 0.1, Baso # (Auto) 0.0 01/23/18 00:10: Sodium 138, Potassium 3.7, Chloride 102, Carbon Dioxide 28, Anion Gap 11.7, BUN 21 H, Creatinine 0.76, Estimated Creat Clear 40, Estimated GFR 74, Est GFR ( Amer) 89, Glucose 91, Calcium 9.5, Total Bilirubin 0.7 , AST 22, ALT 22, Alkaline Phosphatase 86, Total Protein 8.0, Albumin 4.2, Globulin 3.8 H, Albumin/Globulin Ratio 1.1, Amylase 65, Lipase 82 01/23/18 02:20: Lactic Acid 0.5 01/23/18 06:11: WBC 7.6, RBC 4.01 L, Hgb 12.8 D, Hct 38.6, MCV 94.6, MCH 32.0 H , MCHC 33.8, RDW 13.0, Plt Count 154, MPV 8.2, Neut % (Auto) 74.3, Lymph % (Auto ) 19.7, [place] % (Auto) 4.8, Eos % (Auto) 0.9, Baso % (Auto) 0.3, Neut # (Auto) 5.7, Lymph # (Auto) 1.5, [place] # (Auto) 0.4, Eos # (Auto) 0.1, Baso # (Auto) 0.0 01/23/18 06:11: Sodium 140, Potassium 3.4 L, Chloride 105, Carbon Dioxide 29, Anion Gap 9.4, BUN 16, Creatinine 0.65, Estimated Creat Clear 39, Estimated GFR 88, Est GFR ( Amer) 107 D, Glucose 104, Magnesium 1.7 - Imaging CT scan - abdomen: report reviewed, image reviewed Assessment and Plan (1) Colitis Current visit: Yes Status: Acute Category: Medical Code(s): K52.9 - Noninfective gastroenteritis and colitis, unspecified Colitis versus possible colonic neoplasm. Clear liquids today and tomorrow Bowel preparation tomorrow for colonoscopy the following day-I have discussed the risks and benefits she agrees to proceed.
--- NOTE | 2018-01-24 08:50 | Progress Note ---
Subjective Patient reports: other (some back pain) Exam Vital signs and Labs for Last 24 Hours: Temp Pulse Resp BP Pulse Ox 98.8 F 86 18 141/86 97 01/24/18 07:35 01/24/18 07:35 01/24/18 07:35 01/24/18 07:35 01/24/18 07:35 I & O for Last 24 hours: Intake & Output 01/21/18 01/22/18 01/23/18 01/24/18 11:59 11:59 11:59 11:59 Intake Total 100 / 100 2552 / 2552 Output Total 600 / 600 Balance 100 / 100 1951 / 1951 Weight 117 lb - Constitutional no acute distress - *Routine Cardiovascular Exam Present: RRR - *Routine Abdominal Exam Present: soft Progress Note: A&P (1) Colitis Status: Acute Assessment and plan: clear liquids today bowel prep today colonoscopy tomorrow Current Visit: Yes
--- NOTE | 2018-01-24 12:59 | Progress Note ---
Internal Medicine - PN: Subj *Date: 01/24/18 *Time: 12:57 Interval history: still with pain and surg consult noted Exam Vital signs and Labs for Last 24 Hours: Temp Pulse Resp BP Pulse Ox 98.8 F 86 18 141/86 97 01/24/18 07:35 01/24/18 07:35 01/24/18 07:35 01/24/18 07:35 01/24/18 07:35 I & O for Last 24 hours: Intake & Output 01/22/18 01/23/18 01/24/18 01/25/18 11:59 11:59 11:59 11:59 Intake Total 100 / 100 2652 / 2652 Output Total 600 / 600 Balance 100 / 100 2051 / 2051 Weight 117 lb - Constitutional no acute distress - *Routine HEENT Exam Head: Present: normocephalic Eye: Present: EOMI, PERRL ENT: Present: mucous membranes dry - *Routine Neck Exam Present: supple - *Routine Respiratory Exam Present: CTA bilaterally - *Routine Cardiovascular Exam Present: murmur - *Routine Abdominal Exam Present: soft, tenderness - *Routine Extremities Exam Absent: calf tenderness - Routine Back/Spine/Pelvis Exam Back/Spine: Absent: CVA tenderness - *Routine Skin Exam Present: intact - *Routine Neurological Exam Present: CN II-XII intact - Routine Psychiatric Exam Present: cooperative, anxious Assessment and Plan (1) Colitis Current visit: Yes Status: Acute Category: Medical Code(s): K52.9 - Noninfective gastroenteritis and colitis, unspecified
--- NOTE | 2018-01-25 07:05 | Progress Note ---
Subjective Patient reports: other (some nausea with 2nd portion of bowel prep) Exam Vital signs and Labs for Last 24 Hours: Temp Pulse Resp BP Pulse Ox 98.8 F 86 18 146/82 95 01/25/18 04:00 01/25/18 04:00 01/25/18 04:00 01/25/18 04:00 01/25/18 04:00 I & O for Last 24 hours: Intake & Output 01/22/18 01/23/18 01/24/18 01/25/18 11:59 11:59 11:59 11:59 Intake Total 100 / 100 2652 / 2652 2055 Output Total 600 / 600 1200 / 1200 Balance 100 / 100 2051 856 / 856 Weight 117 lb - Constitutional no acute distress - *Routine Respiratory Exam Absent: respiratory distress - *Routine Cardiovascular Exam Present: RRR Progress Note: A&P (1) Colitis Status: Acute Assessment and plan: vs neoplasm Colonoscopy later today Current Visit: Yes
[2018-01-25 07:26] LABS: Basophils % 0.3 % (0.1-2.0); Eosinophils # 0.1 K/mm3 (0.0-0.4); Eosinophils % 1.3 % (0.1-12.0); Hematocrit 39.4 % (37.0-47.0); Hemoglobin 13.2 g/dL (12.2-16.2); Lymphocytes # 1.5 K/mm3 (0.7-4.5); Lymphocytes % 28.2 K/mm3 (10-50); Mean Corpuscular HGB Conc 33.4 g/dL (31.8-35.4); Mean Corpuscular Hemoglobin 31.4 pg (27.0-31.2); Mean Corpuscular Volume 94.1 fl (81-99); Mean Platelet Volume 7.9 fl (7.4-10.4); Monocytes # 0.3 K/mm3 (0.1-1.0); Monocytes % 5.5 % (1.7-9.3); Neutrophils # 3.4 K/mm3 (1.8-7.8); Neutrophils % 64.7 % (37.0-80.0); Platelet Count 160 K/mm3 (142-424); Red Blood Count 4.19 M/mm3 (4.20-5.40); Red Cell Distribution Width 12.6 % (11.5-17.5); White Blood Count 5.2 K/mm3 (4.8-10.8)
[2018-01-25 07:51] LABS: Albumin Level 3.5 gm/dL (3.4-5.0); Anion Gap 14.6 mEq/L (5-15); Bilirubin,Total 0.5 mg/dL (0.2-1.0); Calcium 8.9 mg/dL (8.5-10.1); Globulin 3.6 gm/dl (1.3-3.2); Potassium 3.6 mmoL/L (3.5-5.1); Total Protein,Serum 7.1 gm/dL (6.4-8.2)
--- NOTE | 2018-01-25 08:45 | Progress Note ---
Internal Medicine - PN: Subj *Date: 01/25/18 *Time: 08:44 Exam Vital signs and Labs for Last 24 Hours: Temp Pulse Resp BP Pulse Ox 98.6 F 89 20 160/82 98 01/25/18 07:24 01/25/18 07:24 01/25/18 07:24 01/25/18 07:24 01/25/18 07:24 Laboratory Results - last 24 hr 01/25/18 07:06: WBC 5.2 D, RBC 4.19 L, Hgb 13.2, Hct 39.4, MCV 94.1, MCH 31.4 H , MCHC 33.4, RDW 12.6, Plt Count 160, MPV 7.9, Neut % (Auto) 64.7, Lymph % (Auto ) 28.2, [place] % (Auto) 5.5, Eos % (Auto) 1.3, Baso % (Auto) 0.3, Neut # (Auto) 3.4, Lymph # (Auto) 1.5, [place] # (Auto) 0.3, Eos # (Auto) 0.1, Baso # (Auto) 0.0 01/25/18 07:06: Sodium 145, Potassium 3.6, Chloride 108 H, Carbon Dioxide 26, Anion Gap 14.6, BUN 11 D, Creatinine 0.64, Estimated Creat Clear 39, Estimated GFR 90, Est GFR ( Amer) 109, Glucose 98, Calcium 8.9, Total Bilirubin 0.5 , AST 20, ALT 17, Alkaline Phosphatase 71, Total Protein 7.1, Albumin 3.5, Globulin 3.6 H, Albumin/Globulin Ratio 1.0 L, Lipase 97 I & O for Last 24 hours: Intake & Output 01/22/18 01/23/18 01/24/18 01/25/18 11:59 11:59 11:59 11:59 Intake Total 100 / 100 2652 / 2652 2055 Output Total 600 / 600 1200 / 1200 Balance 100 / 100 2051 856 / 856 Weight 117 lb - Constitutional no acute distress - *Routine HEENT Exam Head: Present: normocephalic Eye: Present: PERRL ENT: Present: mucous membranes moist - *Routine Respiratory Exam Present: CTA bilaterally - *Routine Cardiovascular Exam Present: RRR - *Routine Abdominal Exam Present: soft, normoactive bowel sounds - *Routine Extremities Exam Present: full ROM - *Routine Skin Exam Present: intact - *Routine Neurological Exam Present: alert, oriented X3, CN II-XII intact - Routine Psychiatric Exam Present: normal affect Assessment and Plan (1) Colitis Current visit: Yes Status: Acute Category: Medical Code(s): K52.9 - Noninfective gastroenteritis and colitis, unspecified - Assessment and plan all Dx Assessment and Plan for all problems:: Colonoscopy today Dr. Charles will see patient later today. All orders per Melvin
--- NOTE | 2018-01-25 14:22 | Procedure Note ---
- Procedure: Date: 01/25/18 Procedure Performed:: Colonoscopy with polypectomy by means other than snare and biopsy Indications:: This is a 77-year-old female who was recently admitted with vague abdominal pain. She had radiographic evidence of transverse colitis versus neoplasm. After discussion with the patient concerning the risks and benefits the decision was made to proceed with colonoscopy. Performing Provider:: Richard Corado MD Referring Provider:: Dr. Charles Sedation:: Monitored anesthesia care Procedure:: After informed consent was obtained, the patient was taken to the endoscopy suite. Monitored anesthesia care ensued after she was transferred to the left lateral decubitus position. Digital rectal exam revealed no significant abnormality. The colonoscope was placed in position. The entire colon was evaluated. Bowel preparation was fair to moderate with large volume irrigation and suctioning used to somewhat improved aeration. Fairly significant spasticity and lack of relaxation were encountered. Small cecal polyp was excised with cold biopsy forceps. A transverse colon lesion that was consistent with either neoplasm or complex lobulated colitis was noted. Multiple biopsies were obtained. The lesion encompassed approximately 40% of the circumference. Patchy mucosal sloughing/necrosis noted. The colonoscope easily passed beyond this point and there was no sign of pending obstruction. The colonoscope was then carefully removed and the patient was transferred to recovery. Findings:: Bowel preparation fair to moderate Fairly severe spasticity and lack of relaxation Cecal polyp Complex lobulated mass lesion of the transverse colon encompassing 40% of the circumference. Patchy mucosal necrosis/sloughing noted. Specimens:: Cecal polyp Transverse colon lesion Recommendations:: Follow-up pathology Complications:: No immediate Estimated blood obtained (mL): 1
--- NOTE | 2018-01-25 14:30 | Progress Note ---
[facility] Anesthesia Checklist - Patient Identification Patient Identification: Arm Band, Verbal (Name & ) - Structural Data Admitted From: Home Consent for Planned Operative Procedure(s) Verified: Yes Verified Documents: Surgical Consent, History and Physical - NPO Status Verified Time NPO: 00:00 - Additional verifications Patient : No Anesthesia Reactions: No - Airway Assessment C-Spine Mobility Assessed: Yes TMJ Mobility Assessed: Yes Dentition: Edentulous - Neurological Assessment Level of Consciousness: Awake Hx Seizures: No Numbness or tingling in extremities: No - Anesthesia Plan Anesthesia Risk discussed: Yes Anesthesia Plan: Verified ASA Class: III Anesthesia Type: MAC [facility] Anesthesia HX I have reviewed the patient's past medical history: Yes Medical History: Reports:: Congestive Heart Failure, Chronic Obstructive Pulmonary Disease (COPD), Hyperlipidemia, Hypertension, Palpitations Other Medical History: Reports: Hypothyroidism, Sinus Problems, Other Laterality Cases: Right: Carpal Tunnel Release Other Surgeries: Yes: Cardiac Catheterization Amputation: No Fractures: No *Family Hx:: Hypertension, Cancer
[2018-01-26 07:02] LABS: Basophils % 0.4 % (0.1-2.0); Eosinophils # 0.1 K/mm3 (0.0-0.4); Eosinophils % 2.1 % (0.1-12.0); Hemoglobin 12.6 g/dL (12.2-16.2); Lymphocytes # 1.5 K/mm3 (0.7-4.5); Lymphocytes % 33.8 K/mm3 (10-50); Mean Corpuscular HGB Conc 34.1 g/dL (31.8-35.4); Mean Corpuscular Hemoglobin 31.4 pg (27.0-31.2); Mean Corpuscular Volume 92.1 fl (81-99); Mean Platelet Volume 8.2 fl (7.4-10.4); Monocytes # 0.2 K/mm3 (0.1-1.0); Monocytes % 5.6 % (1.7-9.3); Neutrophils # 2.5 K/mm3 (1.8-7.8); Neutrophils % 58.1 % (37.0-80.0); Platelet Count 179 K/mm3 (142-424); Red Blood Count 4.01 M/mm3 (4.20-5.40); Red Cell Distribution Width 12.6 % (11.5-17.5); White Blood Count 4.3 K/mm3 (4.8-10.8)
--- NOTE | 2018-01-26 07:06 | Progress Note ---
Subjective Patient reports: no new complaints Exam Vital signs and Labs for Last 24 Hours: Temp Pulse Resp BP Pulse Ox 98.3 F 78 18 155/82 96 01/26/18 04:00 01/26/18 04:00 01/26/18 04:00 01/26/18 04:00 01/26/18 04:00 Laboratory Results - last 24 hr 01/25/18 07:06: WBC 5.2 D, RBC 4.19 L, Hgb 13.2, Hct 39.4, MCV 94.1, MCH 31.4 H , MCHC 33.4, RDW 12.6, Plt Count 160, MPV 7.9, Neut % (Auto) 64.7, Lymph % (Auto ) 28.2, [place] % (Auto) 5.5, Eos % (Auto) 1.3, Baso % (Auto) 0.3, Neut # (Auto) 3.4, Lymph # (Auto) 1.5, [place] # (Auto) 0.3, Eos # (Auto) 0.1, Baso # (Auto) 0.0 01/25/18 07:06: Sodium 145, Potassium 3.6, Chloride 108 H, Carbon Dioxide 26, Anion Gap 14.6, BUN 11 D, Creatinine 0.64, Estimated Creat Clear 39, Estimated GFR 90, Est GFR ( Amer) 109, Glucose 98, Calcium 8.9, Total Bilirubin 0.5 , AST 20, ALT 17, Alkaline Phosphatase 71, Total Protein 7.1, Albumin 3.5, Globulin 3.6 H, Albumin/Globulin Ratio 1.0 L, Lipase 97 I & O for Last 24 hours: Intake & Output 01/23/18 01/24/18 01/25/18 01/26/18 11:59 11:59 11:59 11:59 Intake Total 100 / 100 2652 / 2652 2156 / 2156 440 / 440 Output Total 600 / 600 1200 / 1200 850 / 850 Balance 100 / 100 2051 / 2051 956 / 956 -410 / -410 Weight 117 lb - Constitutional no acute distress - *Routine Respiratory Exam Absent: respiratory distress - *Routine Abdominal Exam Present: soft Progress Note: A&P (1) Colitis Status: Acute Current Visit: Yes (2) Colon neoplasm Status: Acute Assessment and plan: Pathology results pending RTC next Monday for further evaluation and planning Full liquids or soft diet Current Visit: Yes
[2018-01-26 07:18] LABS: Albumin Level 2.9 gm/dL (3.4-5.0); Albumin/Globulin Ratio 0.9 (1.1-1.8); Anion Gap 11.2 mEq/L (5-15); Bilirubin,Total 0.4 mg/dL (0.2-1.0); Calcium 8.6 mg/dL (8.5-10.1); Globulin 3.1 gm/dl (1.3-3.2); Potassium 3.2 mmoL/L (3.5-5.1)
--- NOTE | 2018-01-26 08:48 | Discharge Summary ---
General - General Admission date:: 01/23/18 Discharge date: 01/26/18 HPI HPI: This is a 77-year-old female seen in consultation from Dr. Charles for evaluation regarding colitis versus colonic neoplasm. She presented to the emergency department overnight with increasing abdominal pain. She describes the pain as "sharp and crampy". Severity ranges between 3 and 9 out of 10. Duration "minutes to hours". No diarrhea. No melena. No bright red blood per rectum. No definitive recent changes in bowel habits. Over the past few weeks her weight has been stable, but she does claim to have lost "quite a bit of weight without dieting" over the past year. Hospital Course Hospital Course: ct abd/pelvis: IMPRESSION: 1. Long segment of marked mucosal thickening within the proximal to mid transverse colon. This could be neoplastic or inflammatory/infectious. Colonoscopy may be of further value. 2. This lesion appears be causing mild obstruction with moderate amount of stool present within the bowel proximal to the mucosal thickening colonscopy: see report- Complex lobulated mass lesion of the transverse colon encompassing 40% of the circumference. Patchy mucosal necrosis/sloughing noted. Patient states she feels better today is able to eat breakfast. Will discharge patient home, patient states she is going to stay with her daughter. Patient will follow up on Monday with Dr. Corado and then after appointment will follow up at [facility] primary care. Objective Vital signs: Temp Pulse Resp BP Pulse Ox 98.3 F 78 18 155/82 96 01/26/18 04:00 01/26/18 04:00 01/26/18 04:00 01/26/18 04:00 01/26/18 04:00 no acute distress - *Routine HEENT Exam Head: Present: normocephalic Eye: Present: PERRL ENT: Present: mucous membranes moist - *Routine Neck Exam Present: supple, full ROM - *Routine Respiratory Exam Present: CTA bilaterally - *Routine Cardiovascular Exam Present: RRR - *Routine Abdominal Exam Present: soft, normoactive bowel sounds - *Routine Skin Exam Present: intact - *Routine Neurological Exam Present: alert, oriented X3, CN II-XII intact - Routine Psychiatric Exam Present: normal affect, normal thought process Results Labs on day of discharge: Labs from last 24 hours 01/26/18 01/26/18 06:47 06:47 WBC 4.3 L RBC 4.01 L Hgb 12.6 Hct 37.0 MCV 92.1 MCH 31.4 H MCHC 34.1 RDW 12.6 Plt Count 179 MPV 8.2 Neut % (Auto) 58.1 Lymph % (Auto) 33.8 [place] % (Auto) 5.6 Eos % (Auto) 2.1 Baso % (Auto) 0.4 Neut # (Auto) 2.5 Lymph # (Auto) 1.5 [place] # (Auto) 0.2 Eos # (Auto) 0.1 Baso # (Auto) 0.0 Sodium 140 Potassium 3.2 L Chloride 106 Carbon Dioxide 26 Anion Gap 11.2 BUN 11 Creatinine 0.55 Estimated Creat Clear 39 Estimated GFR 107 Est GFR ( Amer) 130 Glucose 110 H Calcium 8.6 Total Bilirubin 0.4 AST 19 ALT 16 Alkaline Phosphatase 61 Total Protein 6.0 L Albumin 2.9 L D Globulin 3.1 Albumin/Globulin Ratio 0.9 L - Additional Comments Rounded with Dr. Charles all orders per Melvin DS: Diagnosis - Discharge Diagnosis (1) Colitis Status: Acute (2) Colon neoplasm Status: Acute Discharge Plan - Patient Discharge Instructions ACTIVITY: Continue current activity DIET: continue same diet - Follow up Plan Follow up with: Richard Corado MD [Staff Physician] - 01/30/18 Seymour [place] APRN [Primary Care Provider] - 01/30/18 (with tiffani) Disposition: Home, Self-[facility] Medications: Home Medications Medication Instructions Recorded Confirmed Type aspirin 81 mg tablet,delayed 81 mg PO DAILY 10/11/17 01/23/18 History release gabapentin 300 mg capsule 300 mg PO TID 10/11/17 01/23/18 History losartan 100 mg tablet 100 mg PO DAILY 10/11/17 01/23/18 History tizanidine 4 mg capsule 4 mg PO TID 10/11/17 01/23/18 History tramadol 50 mg tablet 25 mg PO QID 10/11/17 01/23/18 History albuterol sulfate HFA 90 1 puff INHALATION Q4-6H PRN 12/05/17 01/23/18 History mcg/actuation aerosol inhaler atorvastatin 20 mg tablet 20 mg PO HS tab 12/05/17 01/23/18 History cyclobenzaprine 10 mg tablet 10 mg PO TID 12/05/17 01/23/18 History montelukast 10 mg tablet 10 mg PO HS 12/05/17 01/23/18 History Celecoxib 200 mg PO DAILY 01/23/18 01/23/18 History Fluticasone Propionate [Flonase 1 spr NS DAILY 01/23/18 01/23/18 History 50mcg nasal spray 16gm] Levothyroxine Sodium [Tirosint] 75 mcg PO DAILY 01/23/18 01/23/18 History Metoprolol Succinate [Toprol XL 25 mg PO BID 01/23/18 01/23/18 History 50mg Tablet] Potassium Chloride [Klor-con 20 20 meq PO DAILY 01/23/18 01/23/18 History mEq tablet] Prescriptions/Medication Reconciliation: Continue losartan 100 mg tablet 100 mg PO DAILY aspirin 81 mg tablet,delayed release 81 mg PO DAILY tizanidine 4 mg capsule 4 mg PO TID tramadol 50 mg tablet 25 mg PO QID gabapentin 300 mg capsule 300 mg PO TID cyclobenzaprine 10 mg tablet 10 mg PO TID montelukast 10 mg tablet 10 mg PO HS atorvastatin 20 mg tablet 20 mg PO HS tab albuterol sulfate HFA 90 mcg/actuation aerosol inhaler 1 puff INHALATION Q4- 6H PRN PRN Reason: asthma Metoprolol Succinate [Toprol XL 50mg Tablet] 25 mg PO BID Levothyroxine Sodium [Tirosint] 75 mcg PO DAILY Celecoxib 200 mg PO DAILY Potassium Chloride [Klor-con 20 mEq tablet] 20 meq PO DAILY Fluticasone Propionate [Flonase 50mcg nasal spray 16gm] 1 spr NS DAILY
--- NOTE | 2018-01-26 09:11 | Progress Note ---
Internal Medicine - PN: Subj *Date: 01/26/18 *Time: 09:11 Exam Vital signs and Labs for Last 24 Hours: Temp Pulse Resp BP Pulse Ox 98.3 F 78 18 155/82 96 01/26/18 04:00 01/26/18 04:00 01/26/18 04:00 01/26/18 04:00 01/26/18 04:00 Laboratory Results - last 24 hr 01/26/18 06:47: WBC 4.3 L, RBC 4.01 L, Hgb 12.6, Hct 37.0, MCV 92.1, MCH 31.4 H , MCHC 34.1, RDW 12.6, Plt Count 179, MPV 8.2, Neut % (Auto) 58.1, Lymph % (Auto ) 33.8, [place] % (Auto) 5.6, Eos % (Auto) 2.1, Baso % (Auto) 0.4, Neut # (Auto) 2.5, Lymph # (Auto) 1.5, [place] # (Auto) 0.2, Eos # (Auto) 0.1, Baso # (Auto) 0.0 01/26/18 06:47: Sodium 140, Potassium 3.2 L, Chloride 106, Carbon Dioxide 26, Anion Gap 11.2, BUN 11, Creatinine 0.55, Estimated Creat Clear 39, Estimated GFR 107, Est GFR ( Amer) 130, Glucose 110 H, Calcium 8.6, Total Bilirubin 0.4, AST 19, ALT 16, Alkaline Phosphatase 61, Total Protein 6.0 L, Albumin 2.9 L D, Globulin 3.1, Albumin/Globulin Ratio 0.9 L I & O for Last 24 hours: Intake & Output 01/23/18 01/24/18 01/25/18 01/26/18 23:59 23:59 23:59 23:59 Intake Total 185 / 1858 2094 / 2094 1396 / 1396 Output Total 1800 / 1800 850 / 850 Balance 1857 / 1857 294 / 294 546 / 546 Weight 53.07 kg Assessment and Plan (1) Colitis Current visit: Yes Status: Acute Category: Medical Code(s): K52.9 - Noninfective gastroenteritis and colitis, unspecified (2) Colon neoplasm Current visit: Yes Status: Acute Category: Medical Code(s): D49.0 - Neoplasm of unspecified behavior of digestive system The patient's infection will respond to the chosen ABx?: Yes Is the patient receiving the right drug, dose, and route?: Yes Could a more targeted ABx be ordered?: No (PATIENT D/C TODAY)
[2018-01-26 09:23] VITALS: BP 155/79
== END 2018-01-26 13:10 | disposition home or self-care (01) ==
LOC: 2ND 23:51 → ER 23:51 → 2ND 01-23 03:28
PROVIDERS: ADMIT Emergency Medicine; ATTEND Emergency Medicine

== ENCOUNTER → 2018-01-31 11:36 | Outpatient (CLI) | payer MEDICARE, MEDICAID, SELFPAY ==
[2018-01-31 12:57] LABS: Blood Urea Nitrogen 22 mg/dL (7-18); Creatinine,Serum 0.69 mg/dL (0.55-1.02); Estimated Glomerular Filt Rate 82 ml/min (>60); GFR (African American) 100 ML/MIN (>60)
== END ==
PROVIDERS: Visit Provider Surgery
DX: D49.0 Neoplasm of unspecified behavior of digestive system (principal)
CPT/HCPCS: 36415; 82378; 82565; 84520

== ENCOUNTER → 2018-02-05 09:53 | Outpatient (CLI) | payer MEDICARE, MEDICAID, SELFPAY ==
--- NOTE | 2018-02-05 09:56 | CT_ITS ---
CT abdomen pelvis w con CLINICAL INDICATION: Follow-up mass of the colon ITS.REASON: colon lesion ORDERING PHYSICIAN: Richard Corado MD PATIENT AGE: 77 years COMPARISON: 01/23/2018 TECHNIQUE: Axial images obtained with sagittal and coronal reformats. All CT scans at the facility use one or more dose reduction, viz: automated exposure control; ma/kV adjustment per patient size (including targeted exams where dose is matched to indication; i.e. head); or iterative reconstruction technique. PROCEDURE: Oral Contrast: Redicat IV Contrast: 75 mL's of Isovue-370 . FINDINGS: There are bullous changes in the lung bases posteriorly. Coronary artery calcification noted. No focal liver lesion. The gallbladder and spleen, adrenal glands, and pancreas are unremarkable. No renal mass or hydronephrosis. The previously noted area of mucosal thickening of the transverse colon is no longer apparent and was likely related to an area of extensive focal colitis. Stool is noted throughout the colon. No evidence of intestinal obstruction or free air. No adenopathy. No pelvic mass abnormal fluid collection or focal inflammatory change. There is mild wedging of the inferior endplate of T12 which has developed in the interval. No retropulsed fragments. IMPRESSION: 1. Interval resolution of the focally thickened transverse colon consistent with resolved area of focal colitis 2. New mild wedge compression changes of T12 of approximately 10-15% without retropulsion
== END ==
PROVIDERS: Family Provider Nurse Practitioner Family; PCP Nurse Practitioner Family; Visit Provider Surgery
DX: D49.0 Neoplasm of unspecified behavior of digestive system (principal)
CPT/HCPCS: 74177; 99212; Q9967

== ENCOUNTER → 2018-02-05 15:10 | Outpatient (POV) | payer MEDICARE, MEDICAID, SELFPAY ==
[2018-02-05 16:13] VITALS: BP 134/76; PULSE 81; RESP 18; O2SAT 96; BMI 23.4
--- NOTE | 2018-02-05 16:16 | HMH.PAINSOAP ---
[facility] Pain Management SOAP Note Subjective:: Patient is a pleasant 77-year-old white female who presents today for follow-up after recent fall. Patient is having increasing her right SI joint and right pain. Patient states she was doing very well after her recent medial branch blocks. Patient is currently on tramadol 50 mg 1 p.o. 3 times daily and Zanaflex. Patient states she tripped over her own feet. Patient states she is only fallen once and this is a pattern. Patient rates her pain an 8 out of 10 today. Patient is interested in injection to help with her symptoms. Patient states that she has sharp pain in her right hip along with pain in her SI joint on the right side. ROS General: no recent weight change, no fever, no sleep disturbances Respiratory: no cough, no shortness of air, no recurring pulmonary infections Cardiovascular/Peripheral Vascular: No chest pain, No palpitations, no edema, no shortness of breath. Gastrointestinal: no incontinence, normal bowel movements reported Genitourinary: no incontinence Musculoskeletal: Back pain, right SI joint pain, right greater trochanteric bursa pain Psychiatric: normal mood/ affect, Neurological: [denies weakness in extremities], [denies balance issues] Objective:: Physical Exam General: Alert and oriented x3, no acute distress, pleasant and cooperative, [on room air] Lungs: Resps E/U, Symmetrical chest expansion, Eyes: PERRL Musculoskeletal: Flexion and extension of lumbar spine somewhat guarded secondary to pain, deep tendon reflexes normal, strength in upper and lower extremities [5/5], antalgic gait noted, positive Mitzy's test on the right side, extreme point tenderness over right SI joint and right greater trochanteric bursa Neurological: speech clear, wastewater design engineer equal, no gross sensory deficits Assessment:: Sacroiliitis, bursitis lumbar spondylosis Plan:: We will schedule right SI joint and right greater trochanteric bursa injection for the patient. Patient is to continue with her medications. I did tell her she could take 2 tramadol tablets occasionally. Patient states she understands. I will follow-up with this patient after her injection. This note was dictated using voice recognition software and may contain errors or omissions
--- NOTE | 2018-02-05 16:19 | P.CONS_ITS ---
[facility] Pain Management SOAP Note Subjective:: Patient is a pleasant 77-year-old white female who presents today for follow-up after recent fall. Patient is having increasing her right SI joint and right pain. Patient states she was doing very well after her recent medial branch blocks. Patient is currently on tramadol 50 mg 1 p.o. 3 times daily and Zanaflex. Patient states she tripped over her own feet. Patient states she is only fallen once and this is a pattern. Patient rates her pain an 8 out of 10 today. Patient is interested in injection to help with her symptoms. Patient states that she has sharp pain in her right hip along with pain in her SI joint on the right side. ROS General: no recent weight change, no fever, no sleep disturbances Respiratory: no cough, no shortness of air, no recurring pulmonary infections Cardiovascular/Peripheral Vascular: No chest pain, No palpitations, no edema, no shortness of breath. Gastrointestinal: no incontinence, normal bowel movements reported Genitourinary: no incontinence Musculoskeletal: Back pain, right SI joint pain, right greater trochanteric bursa pain Psychiatric: normal mood/ affect, Neurological: [denies weakness in extremities], [denies balance issues] Objective:: Physical Exam General: Alert and oriented x3, no acute distress, pleasant and cooperative, [ on room air] Lungs: Resps E/U, Symmetrical chest expansion, Eyes: PERRL Musculoskeletal: Flexion and extension of lumbar spine somewhat guarded secondary to pain, deep tendon reflexes normal, strength in upper and lower extremities [5/5], antalgic gait noted, positive Mitzy's test on the right side , extreme point tenderness over right SI joint and right greater trochanteric bursa Neurological: speech clear, dry finisher equal, no gross sensory deficits Assessment:: Sacroiliitis, bursitis lumbar spondylosis Plan:: We will schedule right SI joint and right greater trochanteric bursa injection for the patient. Patient is to continue with her medications. I did tell her she could take 2 tramadol tablets occasionally. Patient states she understands. I will follow-up with this patient after her injection. This note was dictated using voice recognition software and may contain errors or omissions
== END ==
PROVIDERS: Family Provider Nurse Practitioner Family; PCP Nurse Practitioner Family; Visit Provider Clinical Nurse Specialist Family Health
DX: M47.816 Spondylosis without myelopathy or radiculopathy, lumbar region (principal); M46.1 Sacroiliitis, not elsewhere classified
CPT/HCPCS: 99212

== ENCOUNTER → 2018-02-19 12:52 | Outpatient (POV) | payer MEDICARE, MEDICAID, SELFPAY ==
[2018-02-19 13:25] VITALS: BP 158/95; PULSE 82; RESP 18; O2SAT 98; BMI 23.4
--- NOTE | 2018-02-19 14:43 | HMH.PAINSOAP ---
[facility] Pain Management SOAP Note Subjective:: Patient is a pleasant 77-year-old white female who presents today for follow-up after CT scan showed a T12 compression fracture. Patient has MRI scheduled for tomorrow. Patient and I discussed kyphoplasty. Patient does not have a back brace at this time. Patient states that she had a fall several weeks ago. Since then patient has had some additional pain. Patient rates her pain a 7 out of 10 today. Patient states that she is able to sit up straight the pain is decreased. Patient has been on anti-inflammatories along with pain medication. Patient would like to proceed with a kyphoplasty. ROS General: no recent weight change, no fever, no sleep disturbances Respiratory: no cough, no shortness of air, no recurring pulmonary infections Cardiovascular/Peripheral Vascular: No chest pain, No palpitations, no edema, no shortness of breath. Gastrointestinal: no incontinence, normal bowel movements reported Genitourinary: no incontinence Musculoskeletal: Back pain, compression fracture Psychiatric: normal mood/ affect, Neurological: [denies weakness in extremities], [denies balance issues] Objective:: Physical Exam General: Alert and oriented x3, no acute distress, pleasant and cooperative, [on room air] Lungs: Resps E/U, Symmetrical chest expansion, Eyes: PERRL Musculoskeletal: Flexion and extension of lumbar and thoracic spine somewhat guarded secondary to pain, deep tendon reflexes normal, strength in upper and lower extremities [5/5], [abnormal gait noted] Neurological: speech clear, supervisor waterproofing equal, no gross sensory deficits Assessment:: T12 compression fracture, degenerative disc disease of lumbar spine with lumbar radiculopathy, osteoporosis Plan:: We will schedule MRI for tomorrow and we will plan on a kyphoplasty procedure at T12 on Monday. I discussed the procedure with the patient and answered all of her questions. We discussed risks and benefits. We will also set her up with a back brace today. I will follow-up with the patient after her kyphoplasty. This note was dictated using voice recognition software and may contain errors or omissions
== END ==
PROVIDERS: Family Provider Nurse Practitioner Family; PCP Emergency Medicine; Visit Provider Clinical Nurse Specialist Family Health
DX: M80.08XG Age-related osteoporosis with current pathological fracture, vertebra(e), subsequent encounter for fracture with delayed healing (principal)
CPT/HCPCS: 99212

== ENCOUNTER → 2018-02-20 08:07 | Outpatient (CLI) | payer MEDICARE, MEDICAID, SELFPAY ==
--- NOTE | 2018-02-20 08:10 | MR_ITS ---
MR lumbar spine wo con, MR 3-d myelogram/MRCP HISTORY: Low back pain following injury ITS.REASON: COMPRESSION FX ORDERING PHYSICIAN: Naveed Chopra MD PATIENT AGE: 77 years Comparison: 11/02/2015 TECHNIQUE: Standard multiplanar multiecho sequences are performed without contrast. Sagittal STIR images obtained as well. 3-D MIP and myelographic images are also rendered and reviewed FINDINGS: There is normal alignment. The spinal cord ends at the L1-L2 level. T10-T11: Mild degenerative disc disease with minimal left paracentral disc protrusion. T11-T12: Mild degenerative disc disease. T12: Mild acute wedge compression changes are present involving the inferior endplate of T12. There is loss of height anteriorly of approximately 25-30%. Bone marrow edema involves the mid and inferior aspect of T12. There is minimal buckling of the posterior cortex of T12 inferiorly without significant retropulsion. T12-L1: Unremarkable. L1-L2: Degenerative disc disease with bulging disc and small broad-based right paracentral disc protrusion with mild right lateral recess narrowing L2-L3: Degenerative disc disease with concentric bulging disc along with mild facet and ligamentum flavum hypertrophy with mild bilateral lateral recess narrowing slightly greater on the right. L3-L4: Mild concentric bulging disc with facet and ligamentum hypertrophy with mild bilateral foraminal narrowing L4-5: Central bulging disc or a slightly eccentric toward the left with mild left lateral recess narrowing along with facet and ligamentum hypertrophy with mild bilateral foraminal narrowing. L5-S1: Minimal anterolisthesis of L5 of 3 mm with facet and ligamentum flavum hypertrophy with mild right and [id number] left foraminal narrowing. No extruded herniated disc. No canal stenosis. IMPRESSION: 1. Acute wedge compression fracture involves the T12 vertebral body along the mid and inferior endplate with 25-30% loss of height anteriorly with very minimal buckling of the posterior inferior cortex by approximately 2 mm. 2. Multilevel lumbar spondylosis with degenerative disc disease along with bulging disc and facet ligamentum flavum hypertrophy with lateral recess and foraminal narrowing as detailed above. Please see above for detailed description at each level.
== END ==
PROVIDERS: Family Provider Nurse Practitioner Family; PCP Emergency Medicine; Visit Provider Anesthesiology
DX: M54.5 Low back pain (principal); M80.88XS Other osteoporosis with current pathological fracture, vertebra(e), sequela
CPT/HCPCS: 72148; 76376

== ENCOUNTER → 2018-03-09 08:06 | Day surgery (SDC) | payer MEDICARE, MEDICAID, SELFPAY ==
[2018-03-09 08:19] VITALS: BP 158/84; PULSE 89; RESP 18; TEMP 36.6; O2SAT 98; BMI 23.4
--- NOTE | 2018-03-09 08:46 | HMH.PMPROC ---
- Procedure Date: 03/09/18 Time: 08:46 Anesthesiologist:: Naveed Chopra MD Complications:: None Pre-procedure Diagnosis:: Sacroiliitis and trochanteric bursitis Post-procedure Diagnosis:: Same Indications for Procedure:: This patient is a pleasant 77-year-old white female who we recently did a T12 kyphoplasty on for acute T12 compression fracture. She is doing well with her mid back pain. Her pain is completely resolved and she no longer has any mid back pain. The only thing that bothers her now is her legs and right hip. She has developed some right sided hip pain. She is tender over the right SI joint and right trochanteric bursa. She does have a positive Mitzy's test on the right side. We will do a right SI joint injection and right trochanteric bursa injection today to help with her right hip pain. Procedure Details:: Right SI joint injection under fluoroscopy Informed consent was obtained and the risks and benefits of the procedure was explained to the patient. Patient was taken to the procedure room. Patient was placed prone on the procedure table. The right hip was prepped using ChloraPrep. The skin and subcutaneous tissues were anesthetized using lidocaine. I placed a 22-gauge spinal needle into the inferior aspect of the right SI joint. Needle placement was confirmed with dye. After this we injected 5 mL bupivacaine 0.25% and Depo-Medrol 40 mg into the right SI joint. The patient tolerated the procedure well with no complication. Right trochanteric bursa injection under fluoroscopy. Informed consent was obtained and the risk and benefits of the procedure was explained to the patient. Patient was taken procedure room. The patient was placed prone on the procedure table. The right hip was cleansed using ChloraPrep. The skin and subcutaneous tissues were anesthetized using lidocaine. I placed a 22-gauge spinal needle into the area of the right greater trochanter. Needle placement was confirmed with dye. After this we injected 5 mL bupivacaine 0.25% of Medrol 40 mg into the right trochanteric bursa. Patient tolerated the procedure well with no complications. Plan and Disposition:: We will follow-up with her in 2 weeks. We will reevaluate her symptoms at that time.
[2018-03-09 09:01] VITALS: BP 175/87; PULSE 79
[2018-03-09 09:07] VITALS: BP 180/85; PULSE 79; RESP 18; O2SAT 98
[2018-03-09 09:20] VITALS: BP 148/81; PULSE 70; RESP 18; TEMP 36.4; O2SAT 95
== END ==
PROVIDERS: Family Provider Nurse Practitioner Family; PCP Emergency Medicine; Visit Provider Anesthesiology
DX: M46.1 Sacroiliitis, not elsewhere classified (principal); M70.61 Trochanteric bursitis, right hip
CPT/HCPCS: 20610; 27096; G0260; J1030; Q9966

== ENCOUNTER → 2018-04-02 09:37 | Outpatient (POV) | payer MEDICARE, MEDICAID, SELFPAY ==
[2018-04-02 09:53] VITALS: BP 122/79; PULSE 82; RESP 18; O2SAT 98; BMI 21.2
--- NOTE | 2018-04-02 10:02 | HMH.PAINSOAP ---
[facility] Pain Management SOAP Note Subjective:: Patient is a pleasant 77-year-old white female who is following up after right SI joint injection right bursa injection. Patient did not get any relief from this injection. Patient stating she is continuing to shake and fall. Patient and I had discussed about a neurology consult in the past and she would like to pursue this today. Patient also losing weight and losing strength. We will get her into physical therapy. Patient rates her pain a 6 out of 10 today. Patient is currently on tramadol 50 mg 1 p.o. 3 times daily and gabapentin 300 mg 1 p.o. 3 times daily. Patient denies any side effects of this medication. Patient has had a detailed 12 kyphoplasty in the past and is doing quite well with this. ROS General: Losing weight, no fever, no sleep disturbances Respiratory: no cough, no shortness of air, no recurring pulmonary infections Cardiovascular/Peripheral Vascular: No chest pain, No palpitations, no edema, no shortness of breath. Gastrointestinal: no new onset incontinence, normal bowel movements reported Genitourinary: no new onset incontinence Musculoskeletal: Right hip pain Psychiatric: normal mood/ affect Neurological: Bilateral lower extremity weakness, balance issues Objective:: Physical Exam General: Alert and oriented x3, no acute distress, pleasant and cooperative, [on room air] Lungs: Resps E/U, Symmetrical chest expansion, Eyes: PERRL Musculoskeletal: Flexion and extension of lumbar spine somewhat guarded secondary to pain, deep tendon reflexes normal, strength in upper and lower extremities [5/5], [abnormal gait noted] Neurological: speech clear, reclaimer equal, no gross sensory deficits Assessment:: Sacroiliitis, bursitis, history of kyphoplasty, degenerative disc disease of the lumbar spine Plan:: We will order a x-ray of the right hip along with physical therapy for right hip pain and strengthening. We will also consult neurology in regards to her tremors and recent falls. I will follow-up with the patient in 1 month. This note was dictated using voice recognition software and may contain errors or omissions
--- NOTE | 2018-04-02 10:06 | P.CONS_ITS ---
[facility] Pain Management SOAP Note Subjective:: Patient is a pleasant 77-year-old white female who is following up after right SI joint injection right bursa injection. Patient did not get any relief from this injection. Patient stating she is continuing to shake and fall. Patient and I had discussed about a neurology consult in the past and she would like to pursue this today. Patient also losing weight and losing strength. We will get her into physical therapy. Patient rates her pain a 6 out of 10 today. Patient is currently on tramadol 50 mg 1 p.o. 3 times daily and gabapentin 300 mg 1 p.o. 3 times daily. Patient denies any side effects of this medication. Patient has had a detailed 12 kyphoplasty in the past and is doing quite well with this. ROS General: Losing weight, no fever, no sleep disturbances Respiratory: no cough, no shortness of air, no recurring pulmonary infections Cardiovascular/Peripheral Vascular: No chest pain, No palpitations, no edema, no shortness of breath. Gastrointestinal: no new onset incontinence, normal bowel movements reported Genitourinary: no new onset incontinence Musculoskeletal: Right hip pain Psychiatric: normal mood/ affect Neurological: Bilateral lower extremity weakness, balance issues Objective:: Physical Exam General: Alert and oriented x3, no acute distress, pleasant and cooperative, [ on room air] Lungs: Resps E/U, Symmetrical chest expansion, Eyes: PERRL Musculoskeletal: Flexion and extension of lumbar spine somewhat guarded secondary to pain, deep tendon reflexes normal, strength in upper and lower extremities [5/5], [abnormal gait noted] Neurological: speech clear, certified addiction counselor equal, no gross sensory deficits Assessment:: Sacroiliitis, bursitis, history of kyphoplasty, degenerative disc disease of the lumbar spine Plan:: We will order a x-ray of the right hip along with physical therapy for right hip pain and strengthening. We will also consult neurology in regards to her tremors and recent falls. I will follow-up with the patient in 1 month. This note was dictated using voice recognition software and may contain errors or omissions
--- NOTE | 2018-04-02 10:15 | XR_ITS ---
XR hip RT 2-3V w/pelvis HISTORY: ITS.REASON: RT HIP PAIN ORDERING PHYSICIAN: Jeanette Holly PATIENT AGE: 77 years COMPARISON: CT scan abdomen pelvis 02/07/2018 FINDINGS: No fracture or dislocation is evident. No significant degenerative change. No lytic or blastic change. Unremarkable soft tissues. There is large amount stool in the cecum noted. IMPRESSION: Negative pelvis and right hip
== END ==
PROVIDERS: Family Provider Nurse Practitioner Family; PCP Emergency Medicine; Visit Provider Clinical Nurse Specialist Family Health
DX: M46.1 Sacroiliitis, not elsewhere classified (principal)
CPT/HCPCS: 73502; 99212

== ENCOUNTER → 2018-05-14 15:47 | Outpatient (POV) | payer MEDICARE, MEDICAID, SELFPAY ==
[2018-05-14 15:55] VITALS: BP 147/84; PULSE 75; RESP 18; O2SAT 98; BMI 31.2
--- NOTE | 2018-05-14 16:17 | P.CONS_ITS ---
[facility] Pain Management SOAP Note Subjective:: Patient is a pleasant 77-year-old white female who presents today for follow-up. At her last appointment we discussed starting physical therapy along with a neurology consult. Patient states she is doing well however she is still having falls. Patient is scheduled for an MRI of her lumbar spine to determine if she has spinal stenosis. Patient and I discussed potential treatments for this. Patient rates her pain a 5 out of 10 today. Patient's currently on gabapentin from her neurologist. Patient states physical therapy has been very helpful. ROS General: no recent weight change, no fever, no sleep disturbances Respiratory: no cough, no shortness of air, no recurring pulmonary infections Cardiovascular/Peripheral Vascular: No chest pain, No palpitations, no edema, no shortness of breath. Gastrointestinal: no incontinence, normal bowel movements reported Genitourinary: no incontinence Musculoskeletal: Back pain, leg pain Psychiatric: normal mood/ affect, Neurological: Weakness in bilateral lower extremities, [denies balance issues] Objective:: Physical Exam General: Alert and oriented x3, no acute distress, pleasant and cooperative, [on room air] Lungs: Resps E/U, Symmetrical chest expansion, Eyes: PERRL Musculoskeletal: Flexion and extension of lumbar spine somewhat guarded secondary to pain, deep tendon reflexes normal, strength in upper and lower extremities [5/5], [abnormal gait noted] Neurological: speech clear, improvement engineer equal, no gross sensory deficits Assessment:: Degenerative disc disease of the lumbar spine, history of kyphoplasty, bursitis, sacroiliitis Plan:: I will follow-up with this patient in 1 month. Patient should have her MRI and her last visit with her neurologist by then. Patient and I will discuss potential treatment for spinal stenosis at that time. Patient's been instructed to call the office if she has any issues prior to her next appointment. This note was dictated using voice recognition software and may contain errors or omissions
== END ==
PROVIDERS: Family Provider Nurse Practitioner Family; PCP Emergency Medicine; Visit Provider Clinical Nurse Specialist Family Health
DX: M51.36 Other intervertebral disc degeneration, lumbar region (principal); M46.1 Sacroiliitis, not elsewhere classified; Z82.69 Family history of other diseases of the musculoskeletal system and connective tissue; M71.9 Bursopathy, unspecified
CPT/HCPCS: 99213

== ENCOUNTER → 2018-05-18 12:50 | Outpatient (CLI) | payer MEDICARE, MEDICAID, SELFPAY ==
[2018-05-18 14:05] LABS: Alanine Aminotransferase 24 U/L (12-78); Albumin Level 4.3 gm/dL (3.4-5.0); Albumin/Globulin Ratio 1.2 (1.1-1.8); Alkaline Phosphatase 88 U/L (46-116); Anion Gap 13.3 mEq/L (5-15); Aspartate Amino Transferase 22 U/L (15-37); Bilirubin,Total 0.5 mg/dL (0.2-1.0); Blood Urea Nitrogen 21 mg/dL (7-18); Calcium 9.3 mg/dL (8.5-10.1); Carbon Dioxide 29 mmol/L (21.0-32.0); Chloride 103 mmol/L (98-107); Chol/HDL Ratio 2.1 (1-3.5); Cholesterol 138 mg/dL (140-200); Creatinine,Serum 0.89 mg/dL (0.55-1.02); Estimated Glomerular Filt Rate 62 ml/min (>60); GFR (African American) 74 ML/MIN (>60); Globulin 3.6 gm/dl (1.3-3.2); Glucose 86 mg/dL (74-106); HDL Cholesterol 65 mg/dL (29-89); LDL Cholesterol 59 mg/dL (0-130); Potassium 4.3 mmoL/L (3.5-5.1); Sodium 141 mmol/L (136-145); T4 (Thyroxine) 8.1 ug/dl (4.7-13.3); Thyroid Stimulating Hormone 5.58 uIU/ml (0.358-3.740); Total Protein,Serum 7.9 gm/dL (6.4-8.2); Triglycerides 68 mg/dL (30-200); VLDL Cholesterol 14 mg/dL (0-40)
[2018-05-18 14:29] LABS: Basophils % 0.5 % (0.1-2.0); Eosinophils # 0.1 K/mm3 (0.0-0.4); Eosinophils % 3.5 % (0.1-12.0); Hematocrit 39.7 % (37.0-47.0); Hemoglobin 13.6 g/dL (12.2-16.2); Lymphocytes # 1.3 K/mm3 (0.7-4.5); Lymphocytes % 33.9 K/mm3 (10-50); Mean Corpuscular HGB Conc 34.3 g/dL (31.8-35.4); Mean Corpuscular Hemoglobin 33.1 pg (27.0-31.2); Mean Corpuscular Volume 96.5 fl (81-99); Mean Platelet Volume 7.4 fl (7.4-10.4); Monocytes # 0.2 K/mm3 (0.1-1.0); Monocytes % 5.7 % (1.7-9.3); Neutrophils # 2.2 K/mm3 (1.8-7.8); Neutrophils % 56.4 % (37.0-80.0); Platelet Count 216 K/mm3 (142-424); Red Blood Count 4.12 M/mm3 (4.20-5.40); Red Cell Distribution Width 13.3 % (11.5-17.5); White Blood Count 3.9 K/mm3 (4.8-10.8)
[2018-05-19 20:27] LABS: Vitamin D 25 Hydroxy 27.2 ng/mL (30.0-100.0)
== END ==
PROVIDERS: Family Provider Nurse Practitioner Family; PCP Emergency Medicine; Visit Provider Surgery
DX: I11.9 Hypertensive heart disease without heart failure (principal); I25.10 Atherosclerotic heart disease of native coronary artery without angina pectoris; R00.1 Bradycardia, unspecified; E78.5 Hyperlipidemia, unspecified; R53.83 Other fatigue
CPT/HCPCS: 36415; 80053; 80061; 82652; 84436; 84443; 85025

== ENCOUNTER → 2018-06-11 08:55 | Outpatient (CLI) | payer MEDICARE, MEDICAID, SELFPAY ==
--- NOTE | 2018-06-11 08:59 | US_ITS ---
US abdomen complete HISTORY: Right-sided pain. Right groin pain. ITS.REASON: GROIN PAIN,CHRONIC RT SIDE PAIN ORDERING PHYSICIAN: Dimitry Christensen MD PATIENT AGE: 77 years COMPARISON: CT abdomen and pelvis January 2018 FINDINGS: PANCREAS:Unremarkable. No obvious mass or abnormal fluid collection. No ductal dilatation LIVER:No focal liver lesions demonstrated. Homogeneous echogenicity. No intrahepatic biliary ductal dilatation evident portal vein normal caliber and normal direction flow. Com kidneys demonstrate mon duct. Normal., measuring than 4 mm at hilum of liver. Overlying cortical thinning bilaterally but no hydronephrosis nor mass in either kidney. RIGHT KIDNEY:Unremarkable. Normal size and echogenicity. No hydronephrosis LEFT KIDNEY:Unremarkable. No hydronephrosis. Normal size and echogenicity. GALLBLADDER:No gallstones, gallbladder wall thickening, pericholecystic fluid, or biliary dilatation. AORTA:No evidence of aneurysmal dilatation. SPLEEN:Normal size with innumerable echogenic foci throughout reflecting granulomas calcifications. ASCITES:None evident. Right groin included The patient apparently reported some discomfort at the right groin. Images in right groin demonstrates 2 benign-appearing lymph nodes. Each measuring just less than 1.5 cm length with normal thin cortex and fatty hilum. Nonspecific benign-appearing nodes. IMPRESSION: 1. No significant findings on ultrasound abdomen Gallbladder. No gallstones. Numerous granulomatous calcification spleen Kidneys, liver, pancreas, aorta survey unremarkable . Only borderline cortical thinning and kidneys otherwise noted 2.... The patient had tenderness at the right groin & thus right groin was also survey: two benign appearing lymph nodes were observed each 1.5 cm. unimpressive. WNL . May want to consider a follow-up duplex Doppler study if groin pain or leg persist OR If hernias questioned clinically then CT with contrast would be preferred to further evaluate right groin
== END ==
PROVIDERS: Family Provider Nurse Practitioner Family; PCP Emergency Medicine; Visit Provider Psychiatry & Neurology Neurology
DX: R10.31 Right lower quadrant pain (principal); G89.29 Other chronic pain
CPT/HCPCS: 76700; 99213

== ENCOUNTER → 2018-06-11 15:40 | Outpatient (POV) | payer MEDICARE, MEDICAID, SELFPAY ==
[2018-06-11 16:10] VITALS: BP 129/75; PULSE 82; RESP 18; O2SAT 98; BMI 25.4
--- NOTE | 2018-06-11 16:31 | HMH.PAINSOAP ---
[facility] Pain Management SOAP Note Subjective:: Patient is a pleasant 77-year-old white female who presents today for follow-up. Patient has been doing her physical therapy. However she is still having falls. Patient was seen by her neurologist and all her MRIs came back clear. Patient has been increased in the dose of her gabapentin from her neurologist. Patient states this does not help that much. Patient rates her pain a 6 out of 10 mostly in her low back. Patient has not had any medial branch blocks for quite some time. Patient is interested in repeating this. Patient has a lot of low back pain. ROS General: no recent weight change, no fever, no sleep disturbances Respiratory: no cough, no shortness of air, no recurring pulmonary infections Cardiovascular/Peripheral Vascular: No chest pain, No palpitations, no edema, no shortness of breath. Gastrointestinal: no incontinence, normal bowel movements reported Genitourinary: no incontinence Musculoskeletal: Back pain Psychiatric: normal mood/ affect Neurological: [denies weakness in extremities], [denies balance issues] Objective:: Physical Exam General: Alert and oriented x3, no acute distress, pleasant and cooperative, [on room air] Lungs: Resps E/U, Symmetrical chest expansion, Eyes: PERRL Musculoskeletal: Flexion and extension of lumbar spine somewhat guarded secondary to pain, deep tendon reflexes normal, strength in upper and lower extremities [5/5], [abnormal gait noted], positive Kemps test bilaterally lumbar spine Neurological: speech clear, public health outreach worker equal, no gross sensory deficits Assessment:: degenerative disc disease lumbar spine with lumbar spondylosis, history of kyphoplasty, sacroiliitis Plan:: We will schedule L3-L4 L4-L5 L5 5 S1 bilateral medial branch block/facet joint injections. Patient has had good relief with this in the past. I will follow-up with her after these injections. Patient is to continue with her neurologist. Patient is not on any anticoagulation therapy. Patient is continuing her physical therapy. This note was dictated using voice recognition software and may contain errors or omissions
--- NOTE | 2018-06-11 16:34 | P.CONS_ITS ---
[facility] Pain Management SOAP Note Subjective:: Patient is a pleasant 77-year-old white female who presents today for follow-up. Patient has been doing her physical therapy. However she is still having falls. Patient was seen by her neurologist and all her MRIs came back clear. Patient has been increased in the dose of her gabapentin from her neurologist. Patient states this does not help that much. Patient rates her pain a 6 out of 10 mostly in her low back. Patient has not had any medial branch blocks for quite some time. Patient is interested in repeating this. Patient has a lot of low back pain. ROS General: no recent weight change, no fever, no sleep disturbances Respiratory: no cough, no shortness of air, no recurring pulmonary infections Cardiovascular/Peripheral Vascular: No chest pain, No palpitations, no edema, no shortness of breath. Gastrointestinal: no incontinence, normal bowel movements reported Genitourinary: no incontinence Musculoskeletal: Back pain Psychiatric: normal mood/ affect Neurological: [denies weakness in extremities], [denies balance issues] Objective:: Physical Exam General: Alert and oriented x3, no acute distress, pleasant and cooperative, [on room air] Lungs: Resps E/U, Symmetrical chest expansion, Eyes: PERRL Musculoskeletal: Flexion and extension of lumbar spine somewhat guarded secondary to pain, deep tendon reflexes normal, strength in upper and lower extremities [5/5], [abnormal gait noted], positive Kemps test bilaterally lumbar spine Neurological: speech clear, medical supervisor equal, no gross sensory deficits Assessment:: degenerative disc disease lumbar spine with lumbar spondylosis, history of kyphoplasty, sacroiliitis Plan:: We will schedule L3-L4 L4-L5 L5 5 S1 bilateral medial branch block/facet joint injections. Patient has had good relief with this in the past. I will follow- up with her after these injections. Patient is to continue with her neurologist. Patient is not on any anticoagulation therapy. Patient is continuing her physical therapy. This note was dictated using voice recognition software and may contain errors or omissions
== END ==
PROVIDERS: Family Provider Nurse Practitioner Family; PCP Emergency Medicine; Visit Provider Clinical Nurse Specialist Family Health
DX: M51.36 Other intervertebral disc degeneration, lumbar region (principal); M47.896 Other spondylosis, lumbar region; M46.1 Sacroiliitis, not elsewhere classified; Z87.39 Personal history of other diseases of the musculoskeletal system and connective tissue
CPT/HCPCS: 99213

== ENCOUNTER 2018-07-20 14:30 | Outpatient (RCR) | payer MEDICARE, MEDICAID, SELFPAY | END 2018-07-20 14:31 | disposition home or self-care (01) | LOC: PT 14:30 | PROVIDERS: Family Provider Nurse Practitioner Family; PCP Emergency Medicine; Visit Provider Clinical Nurse Specialist Family Health | DX: M25.551 Pain in right hip (principal) | CPT/HCPCS: 97010; 97014; 97110; 97112; 97116; 97140; 97163; 97164; G0283 ==

== ENCOUNTER → 2018-07-23 12:50 | Outpatient (POV) | payer MEDICARE, MEDICAID, SELFPAY ==
[2018-07-23 13:57] VITALS: BP 168/98; PULSE 83; RESP 18; O2SAT 98; BMI 22.4
--- NOTE | 2018-07-24 08:12 | P.CONS_ITS ---
[facility] Pain Management SOAP Note Subjective:: Patient is a pleasant 77-year-old white female who we are treating for low back pain with lumbar spondylosis and facet arthropathy. Patient is following up after recent medial branch block at L3-L4 L4-L5 L5-S1 bilateral. Patient is doing extremely well and states she can walk much further. Patient is interested in getting an RFA. Patient has had 2 sets of facet joint injections with good relief. Patient would like to proceed with a anjelica me. Patient's not on any anticoagulation therapy. Patient is continuing her physical therapy. Patient is on anti-inflammatories. Patient has tried and failed medications. She rates her pain a 6 out of 10 in her low back. ROS General: no recent weight change, no fever, no sleep disturbances Respiratory: no cough, no shortness of air, no recurring pulmonary infections Cardiovascular/Peripheral Vascular: No chest pain, No palpitations, no edema, no shortness of breath. Gastrointestinal: no new onset incontinence, normal bowel movements reported Genitourinary: no new onset incontinence Musculoskeletal: Back pain Psychiatric: normal mood/ affect Neurological: [denies weakness in extremities], [denies balance issues] Objective:: Physical Exam General: Alert and oriented x3, no acute distress, pleasant and cooperative, [on room air] Lungs: Resps E/U, Symmetrical chest expansion, Eyes: PERRL Musculoskeletal: Flexion and extension of lumbar spine somewhat guarded secondary to pain, deep tendon reflexes normal, strength in upper and lower extremities [5/5], abnormal gait noted, positive Kemps test bilaterally lumbar spine Neurological: speech clear, asset protection associate equal, no gross sensory deficits Assessment:: Lumbar spondylosis, facet arthropathy, degenerative disc disease lumbar spine Plan:: We will schedule an RFA for the patient at L3-L4 L4-L5 L5-S1 we will begin with the right side and in 2 weeks later we will have her return for the left side. Patient is not on anticoagulant therapy. Patient is done well with medial branch blocks in the past. I will follow-up with her after her RFA. This note was dictated using voice recognition software and may contain errors or omissions
== END ==
PROVIDERS: PCP Nurse Practitioner Family; Visit Provider Clinical Nurse Specialist Family Health
DX: M47.896 Other spondylosis, lumbar region (principal); M51.36 Other intervertebral disc degeneration, lumbar region
CPT/HCPCS: 99213

== ENCOUNTER → 2018-08-23 17:56 | Outpatient (CLI) | payer MEDICARE, MEDICAID, SELFPAY ==
[2018-08-23 18:45] LABS: Basophils % 0.6 % (0.1-2.0); Eosinophils # 0.1 K/mm3 (0.0-0.4); Eosinophils % 1.9 % (0.1-12.0); Hematocrit 41.2 % (37.0-47.0); Hemoglobin 13.2 g/dL (12.2-16.2); Lymphocytes # 1.6 K/mm3 (0.7-4.5); Lymphocytes % 34.8 % (10-50); Mean Corpuscular HGB Conc 31.9 g/dL (31.8-35.4); Mean Corpuscular Volume 97.1 fl (81-99); Mean Platelet Volume 8.6 fl (7.4-10.4); Monocytes # 0.3 K/mm3 (0.1-1.0); Neutrophils # 2.6 K/mm3 (1.8-7.8); Neutrophils % 56.7 % (37.0-80.0); Platelet Count 221 K/mm3 (142-424); Red Blood Count 4.24 M/mm3 (4.20-5.40); Red Cell Distribution Width 13.5 % (11.5-17.5); White Blood Count 4.6 K/mm3 (4.8-10.8)
[2018-08-23 19:24] LABS: Alanine Aminotransferase 24 U/L (12-78); Albumin Level 3.7 gm/dL (3.4-5.0); Albumin/Globulin Ratio 1.2 (1.1-1.8); Alkaline Phosphatase 97 U/L (46-116); Anion Gap 15.8 mEq/L (5-15); Aspartate Amino Transferase 12 U/L (15-37); Bilirubin,Total 0.5 mg/dL (0.2-1.0); Blood Urea Nitrogen 26 mg/dL (7-18); Calcium 8.4 mg/dL (8.5-10.1); Carbon Dioxide 25 mmol/L (21.0-32.0); Chloride 105 mmol/L (98-107); Creatinine,Serum 0.85 mg/dL (0.55-1.02); Estimated Glomerular Filt Rate 65 ml/min (>60); GFR (African American) 78 ML/MIN (>60); Globulin 3.1 gm/dl (1.3-3.2); Glucose 143 mg/dL (74-106); Potassium 3.8 mmoL/L (3.5-5.1); Sodium 142 mmol/L (136-145); T4 (Thyroxine) 8.2 ug/dl (4.7-13.3); Total Protein,Serum 6.8 gm/dL (6.4-8.2); Triiodothryronine (T3) Uptake 37 % (31-39)
== END ==
PROVIDERS: Visit Provider Nurse Practitioner Family
DX: E87.5 Hyperkalemia (principal); I10 Essential (primary) hypertension
CPT/HCPCS: 80053; 84436; 84443; 84479; 85025

== ENCOUNTER 2018-09-24 13:55 | Outpatient (RCR) | payer MEDICARE, MEDICAID, SELFPAY ==
--- NOTE | 2018-09-24 16:23 | HMH.PTOPEV ---
PT Outpatient Evaluation Rehab PT Outpatient Evaluation Start: 09/24/18 15:57 Freq: Status: Active Protocol: Document 09/24/18 15:57 PHOTRAVIS (Rec: 09/24/18 16:21 PHORNE [id number]) Electronically Signed By Gerardo Ornelas, PT 09/24/18 15:57 Outpatient Therapy Subjective History Subjective History Pt is 78 yowf who presents with c/o chronic low back pain x > 10 yrs. She recently underwent nerve ablation on kristian lumbar spine at unknown level. She reports pain remains unchanged after her procedures with continued intermittent sharp pain in the anterior right thigh and hip jt area. She states, I feel like I'm going backwards a lot and that I'm going to fall. PMH: HTN, cardiac stents. Chief Complaint Pain Stiff Symptom Type Sharp Burning Symptoms Relieved By Nothing Symptoms Aggravated By Physical Activity Prior Functional Limitations Standing Walking Current Functional Limitations Standing Walking Symptom Description Intermittent Level of pain today (0-10) 0 Pain scale - at its worst (0-10) 10 Lumbopelvic Eval Posture Thoracic Spine Posture Standing Position Increased Kyphosis Palapation tenderness bilateral lumbar spinal tenderness Yes paraspinal tenderness Yes Lumbar/Sacral Palpation Findings Tenderness Range of Motion Lumbar Spine Active Flexion Range of 0-40 Motion (degrees) Lumbar Spine Active Extension Range of 0 Motion (degrees) Left Lumbar Spine Lateral Flexion Active 0-5 Range of Motion (degrees) Right Lumbar Spine Lateral Flexion 0-5 Active Range of Motion (degrees) Manual Muscle Test Bilateral Knee Extension Strength Grade 4 Good Knee Flexion Strength Grade 4 Good Hip Flexion Strength Grade 3 Fair Hip Abduction Strength Grade 3 Fair Hip Adduction Strength Grade 4 Good Hip External Rotation Strength Grade 4 Good Hip Internal Rotation Strength Grade 4 Good Hip Extension Strength Grade 4 Good Gluteus Meliton Strength Grade 4 Good Extensor Hallucis Longus Strength Grade 4 Good Ankle Dorsiflexion Strength Grade 4 Good Gastronemius/Soleus Strength Grade 4 Good DTR Rt Patellar 2+ Lt Patellar 2+ Rt Gastroc/Soleus
== END 2018-09-24 14:00 | disposition home or self-care (01) ==
LOC: PT 13:55
PROVIDERS: Visit Provider Anesthesiology
DX: M54.5 Low back pain (principal)
CPT/HCPCS: 97163

== ENCOUNTER → 2018-10-15 14:55 | Outpatient (POV) | payer MEDICARE, MEDICAID, SELFPAY ==
[2018-10-15 15:06] VITALS: BP 125/97; PULSE 87; RESP 18; O2SAT 99; BMI 27.3
--- NOTE | 2018-10-15 15:13 | HMH.PAINSOAP ---
[facility] Pain Management SOAP Note Subjective:: Patient is a pleasant 78-year-old white female who presents today for follow-up after lumbar RFA. Patient states her back pain has pretty much gone. Patient states that her pain today is mostly in her right knee. Patient is using cream to help with this. Patient is looking into inpatient rehabilitation at this time to help with her walking. ROS General: no recent weight change, no fever, no sleep disturbances Respiratory: no cough, no shortness of air, no recurring pulmonary infections Cardiovascular/Peripheral Vascular: No chest pain, No palpitations, no edema, no shortness of breath. Gastrointestinal: no incontinence, normal bowel movements reported Genitourinary: no incontinence Musculoskeletal: Back pain at times, right knee pain Psychiatric: normal mood/ affect Neurological: Weakness in bilateral lower extremities, [denies balance issues] Objective:: Physical Exam General: Alert and oriented x3, no acute distress, pleasant and cooperative, [on room air] Lungs: Resps E/U, Symmetrical chest expansion, Eyes: PERRL Musculoskeletal: Flexion and extension of lumbar spine somewhat guarded secondary to pain, deep tendon reflexes normal, strength in upper and lower extremities [4/5], utilizing wheelchair at this time due to difficulty with walking Neurological: speech clear, tax examining technician equal, no gross sensory deficits Assessment:: Degenerative disc disease lumbar spine with lumbar radiculopathy and lumbar spondylosis with facet arthropathy Plan:: We will follow-up with the patient 2 months reassess her symptoms at that time patient instructed to call the office if she has any issues prior to her next appointment. Dr. Chopra has reviewed this note and agrees with this plan of care. This note was dictated using voice recognition software and may contain errors or omissions
== END ==
PROVIDERS: PCP Nurse Practitioner Family; Visit Provider Clinical Nurse Specialist Family Health
DX: M51.16 Intervertebral disc disorders with radiculopathy, lumbar region (principal); M47.896 Other spondylosis, lumbar region; M54.06 Panniculitis affecting regions of neck and back, lumbar region
CPT/HCPCS: 99213

== ENCOUNTER 2018-10-18 19:20 | Observation (INO) ==
--- NOTE | 2018-10-18 20:02 | Emergency Department Note ---
ED Disposition Clinical Impression: Upper respiratory infection, Bronchitis, acute, with bronchospasm, Dyspnea Disposition: Admitted as Observation Condition on Discharge: Good Referrals: Ricardo Charles MD [Primary Care Provider] - - Critical Care Critical Care Time: No Attestation: On 10/18/18, the high probability of a clinically significant, sudden or life threatening deterioration of the following system(s) required my full and direct attention, intervention and personal management. The time I documented below is in addition to time spent performing reported procedures but includes the fo garrickg listed in this critical care notation. Medical Decision Making - Medical Records Medical records reviewed: Yes: I reviewed the patient's medical records. - Francisco Inquiry Pt receiving controlled substance: No Francisco was queried for this patient: No Vital Signs: 10/18/18 19:27 10/18/18 20:05 Temperature 99.0 F Temperature Source Oral Pulse Rate 87 Pulse Rate [Right Brachial] 97 H Respiratory Rate 17 Blood Pressure [Right Arm] 145/72 H Blood Pressure Mean [Right Arm] 96 02 Sat by Pulse Oximetry 98 - Lab Data Lab results reviewed: Yes: I reviewed the patient's lab results. Lab Results 10/18/18 19:45: WBC 5.2, RBC 4.46, Hgb 13.8, Hct 43.6, MCV 97.6, MCH 30.9, MCHC 31.6 L, RDW 13.3, Plt Count 187, MPV 8.8, Neut % (Auto) 61.9, Lymph % (Auto) 29.4, Bulloch % (Auto) 7.3, Eos % (Auto) 0.9, Baso % (Auto) 0.5, Neut # (Auto) 3.2, Lymph # (Auto) 1.5, Bulloch # (Auto) 0.4, Eos # (Auto) 0.1, Baso # (Auto) 0.0 10/18/18 19:45: Sodium 140, Potassium 3.6, Chloride 102, Carbon Dioxide 28, Anion Gap 13.6, BUN 24 H, Creatinine 0.99, Estimated Creat Clear 46, Estimated GFR 54 L, Est GFR ( Amer) 66, Glucose 93, Calcium 8.7, Total Bilirubin 0.8, AST 20, ALT 20, Alkaline Phosphatase 71, Total Protein 7.4, Albumin 3.5, Globulin 3.9 H, Albumin/Globulin Ratio 0.9 L 10/18/18 19:45: Lactate 1.3 10/18/18 19:45: Influenza Type A Ag Negative, Influenza Type B Ag Negative 10/18/18 19:45: B-Natriuretic Peptide 35 Result diagrams: 10/18/18 19:45 10/18/18 19:45 Orders (Tests/Meds): ED MEDICATIONS Generic Name Dose Route Start Last Admin Trade Name Freq PRN Reason Stop Dose Admin Sodium Chloride 10 ml 10/18/18 19:37 Saline Flush 10ml Syringe IV 11/17/18 19:36 NEEDED PRN Maintain IV Site Sodium Chloride 3 ml 10/18/18 19:49 Sodium Chloride 3% 15ml Neb 11/17/18 19:48 ONCE PRN INDUCE SPUTUM COLLECTION Discontinued Medications Generic Name Dose Route Start Last Admin Trade Name Freq PRN Reason Stop Dose Admin Albuterol/Ipratropium 3 ml 10/18/18 19:37 10/18/18 20:16 Duoneb 3ml [facility] 10/18/18 19:38 3 ml ONCE ONE Administration Albuterol/Ipratropium 3 ml 10/18/18 19:48 10/18/18 20:16 Duoneb 3ml [facility] 10/18/18 19:49 3 ml ONCE ONE Administration Azithromycin 500 mg 10/18/18 20:05 10/18/18 20:31 Zithromax 250mg Tablet PO 10/18/18 20:06 500 mg ONCE ONE Administration Protocol Dexamethasone Sodium Phosphate 20 mg 10/18/18 19:47 10/18/18 19:58 Decadron 4mg/Ml 5ml Mdv IV 10/18/18 19:48 20 mg ONCE ONE Administration Methylprednisolone Sodium Succinate 125 mg 10/18/18 19:37 10/18/18 19:51 Solu-Medrol 125mg/2ml Vial IV 10/18/18 19:38 Not Given ONCE ONE ORDERS Category Date Time Status XR chest 2V Stat Exams 10/18/18 19:37 Taken Blood Culture Stat Micro 10/18/18 19:45 Received Sputum Culture & Gram Stain Stat Micro 10/18/18 20:33 Ordered - Radiology Data #1 Image(s): Chest Image Reviewed: Yes I reviewed the patient's radiology results Consistent with COPD chronic changes no acute pathology no sign of pneumonia Medical Decision Narrative: Differential diagnosis viral URI bronchitis acute asthma dyspnea Patient treated with DuoNeb and steroids After treatment patient still has some wheezing feels a little bit improvement but not enough to go home chest x-ray shows chronic changes patient discussed with Dr. Dinero covering for Dr. Charles patient will be admitted General Adult HPI - General Chief complaint: Upper Respiratory Infection Stated complaint: cough,congestion,weakness Time Seen by Provider: 10/18/18 19:30 Mode of Arrival: Family Vehicle Limitations: No Limitations Description of Symptoms (Recalled from ER Triage Doc. by RN): weakness, congestion, cough, wheezing x 2 days ago. pt has hx copd. pt states she has been having chills at home. pt was recently admitted here in hospital for colitis and is currently waiting for a bed at [facility] for rehab. - History of Present Illness HPI narrative: Patient brought in by her family with cough and congestion wheezing for the last 2 days she lives at home she is limited in her ambulation needs a walker she is not a smoker no fever or chills - Related Data Home Medications Medication Instructions Recorded Confirmed aspirin 81 mg tablet,delayed 81 mg PO DAILY 10/11/17 10/18/18 release cyclobenzaprine 10 mg tablet 10 mg PO TID 12/05/17 10/18/18 montelukast 10 mg tablet 10 mg PO HS 12/05/17 10/18/18 pregabalin 75 mg capsule 100 mg PO TID 08/23/18 10/18/18 Previous Rx's Medication Instructions Recorded losartan 100 mg tablet 100 mg PO DAILY #30 tab 04/11/18 levothyroxine 88 mcg tablet 88 mcg PO DAILY #90 tab 08/16/18 metoprolol succinate ER 50 mg 25 mg PO BID #30 tab 08/30/18 tablet,extended release 24 hr atorvastatin 20 mg tablet 20 mg PO HS #90 tab 10/11/18 Allergies Allergy/AdvReac Type Severity Reaction Status Date / Time carbamazepine Allergy Intermediate I-ITCHING Verified 10/18/18 19:37 promethazine Allergy Mild "MAKES Verified 10/18/18 19:37 HYPER" [facility] History - Hepatitis A Screen Drug use history?: No High risk sexual behaviors?: No History of sexually transmitted infection?: No Currently employed?: No Childcare worker?: No Do you have indoor plumbing?: Yes Do you have electricity?: Yes Attestation statement:: This patient has been screened for Hepatitis A risk factors. I have reviewed the patient's past medical history: Yes Medical History: Reports:: Congestive Heart Failure, Chronic Obstructive Pulmonary Disease (COPD), Coronary Artery Disease, Hyperlipidemia, Hypertension, Lung Disease, Palpitations Denies:: Cancer, Diabetes Mellitus Type 1, Diabetes Mellitus Type 2, Internal Pacemaker, MRSA, Seizures Other Medical History: Reports: Hypothyroidism, Sinus Problems, Other. Denies: Blood Transfusion Reaction Laterality Cases: Right: Arthroscopy Knee, Bilateral: Carpal Tunnel Release Other Surgeries: Yes: Cardiac Catheterization, Cardiac Surgery, Colonoscopy, Coronary Stent. No: Pacemaker Amputation: No Fractures: No Comment: Knee surgery 04/2016 - Social History Smoking Status: Former smoker Tobacco Type: cigarettes Alcohol Intake: never Alcohol Intake Frequency:: other Substance Use Type: denies use Occupational Status: retired Housing: apartment Household Members: family - Psychiatric History Expresses thoughts of harming self/others: None Suicide Plan Description: No Plan Family Hx:: Hypertension, Cancer ROS Obtained: Yes All systems reviewed & no additional complaints - Constitutional Constitutional: Reports as per HPI Physical Exam - General General appearance: alert, in no apparent distress - Head Head exam: atraumatic, normocephalic, normal inspection - Eye Eye exam: Present: normal appearance, PERRL, EOMI - ENT ENT exam: Present: normal exam, normal oropharynx, mucous membranes moist, TM's normal bilaterally, normal external ear exam - Neck Neck exam: Present: normal inspection, full ROM, trachea midline. Absent: meningismus, lymphadenopathy - Chest Chest inspection: Present: normal inspection, symmetric chest wall rise. Absent: tenderness - Respiratory Respiratory exam: Present: wheezes (Bilateral tight wheezes). Absent: respiratory distress - Cardiovascular Cardiovascular exam: Present: regular rate, normal rhythm. Absent: JVD - Abdominal Exam Abdominal exam: Present: soft, normal bowel sounds. Absent: distention, tenderness, guarding - Extremities Exam Extremities exam: Present: normal inspection, full ROM, normal capillary refill. Absent: calf tenderness - Back Exam Back exam: Present: normal inspection. Absent: tenderness - Neurological Exam Neurological exam: Present: alert, oriented X3 - Psychiatric Psychiatric exam: Present: normal affect, normal mood - Skin Skin exam: Present: warm, dry, intact, normal color - Lymphatic Lymphatic Findings: no adenopathy
[2018-10-18 20:10] LABS: Albumin Level 3.5 gm/dL (3.4-5.0); Albumin/Globulin Ratio 0.9 (1.1-1.8); Anion Gap 13.6 mEq/L (5-15); Bilirubin,Total 0.8 mg/dL (0.2-1.0); Calcium 8.7 mg/dL (8.5-10.1); Globulin 3.9 gm/dl (1.3-3.2); Potassium 3.6 mmoL/L (3.5-5.1); Total Protein,Serum 7.4 gm/dL (6.4-8.2)
[2018-10-18 20:16] LABS: Basophils % 0.5 % (0.1-2.0); Eosinophils # 0.1 K/mm3 (0.0-0.4); Eosinophils % 0.9 % (0.1-12.0); Hematocrit 43.6 % (37.0-47.0); Hemoglobin 13.8 g/dL (12.2-16.2); Lymphocytes # 1.5 K/mm3 (0.7-4.5); Lymphocytes % 29.4 % (10-50); Mean Corpuscular HGB Conc 31.6 g/dL (31.8-35.4); Mean Corpuscular Hemoglobin 30.9 pg (27.0-31.2); Mean Corpuscular Volume 97.6 fl (81-99); Mean Platelet Volume 8.8 fl (7.4-10.4); Monocytes # 0.4 K/mm3 (0.1-1.0); Monocytes % 7.3 % (1.7-9.3); Neutrophils # 3.2 K/mm3 (1.8-7.8); Neutrophils % 61.9 % (37.0-80.0); Platelet Count 187 K/mm3 (142-424); Red Blood Count 4.46 M/mm3 (4.20-5.40); Red Cell Distribution Width 13.3 % (11.5-17.5); White Blood Count 5.2 K/mm3 (4.8-10.8)
--- NOTE | 2018-10-19 07:38 | Pharmacy Consult Notes ---
[facility] Pharmacy VTE Monitoring - Patient Demographics Admission date: 10/18/18 Report Date: 10/19/18 Time: 07:38 Allergies/Adverse Reactions: Patient Allergies carbamazepine Allergy (Intermediate, Verified 10/18/18 19:37) I-ITCHING promethazine Allergy (Mild, Verified 10/18/18 19:37) "MAKES HYPER" Height: 1.52 m Weight: 63.56 kg Patient Problems: Current Active Problems Upper respiratory infection (Acute) Bronchitis, acute, with bronchospasm (Acute) Dyspnea (Chronic) - VTE Risk Labs: VTE Related Lab Results Hgb 13.8 g/dL (12.2-16.2) 10/18/18 19:45 Hct 43.6 % (37.0-47.0) 10/18/18 19:45 Plt Count 187 K/mm3 (142-424) 10/18/18 19:45 BUN 24 mg/dL (7-18) H 10/18/18 19:45 Creatinine 0.99 mg/dL (0.55-1.02) 10/18/18 19:45 Estimated Creat Clear 46 mL/min (50-200) 10/18/18 19:45 Was VTE Risk Assessment Performed: Yes VTE Score: 3 VTE Risk Level: Low Risk Clinical Trial Participant: No - Prophylaxis VTE Prophylaxis Ordered?: Yes Types of VTE Prophylaxis: TEDS Knee High
--- NOTE | 2018-10-19 12:18 | H&P/Discharge Summary ---
General - General Admission date:: 10/18/18 Discharge date: 10/19/18 ( ) *Admission Date: 10/18/18 *Chief complaint: cough *History of present illness: 78 yr old female Patient brought in by her family with cough and congestion wheezing for the last 2 days she lives at home she is limited in her ambulation needs a walker she is not a smoker no fever or chills. Patient admitted for acute bronchitis. Today patient is not complaining of cough or shortness of breath is saying she is having right lower quadrant pain with pain radiating down into her leg but she has been dealing with this for months. [facility] History I have reviewed the patient's past medical history: Yes Medical History: Reports:: Congestive Heart Failure, Chronic Obstructive Pulmon shira Disease (COPD), Coronary Artery Disease, Hyperlipidemia, Hypertension, Lung Disease, Palpitations Denies:: Cancer, Diabetes Mellitus Type 1, Diabetes Mellitus Type 2, Internal Pacemaker, MRSA, Seizures Have you ever received a pneumonia vaccine?: Yes Have you received a flu vaccine this season?: Yes Other Medical History: Reports: Hypothyroidism, Sinus Problems, Other. Denies: Blood Transfusion Reaction Laterality Cases: Right: Arthroscopy Knee, Bilateral: Carpal Tunnel Release Other Surgeries: Yes: Cardiac Catheterization, Cardiac Surgery, Colonoscopy, Coronary Stent. No: Pacemaker Amputation: No Fractures: No - *Social History Educational Level: Attended High School Smoking Status: Former smoker Tobacco Type: cigarettes Alcohol Intake: never Alcohol Intake Frequency:: other Substance Use Type: denies use Occupational Status: retired Housing: house Household Members: family Travel in the last 8 weeks: None - Psychiatric History Expresses thoughts of harming self/others: None Suicide Plan Description: No Plan *Family Hx:: Hypertension, Cancer Review of Systems - Review of Systems Review of systems:: pertinent systems reviewed and negative unless documented below - Constitutional Reports chills, Denies fever(s) - Eyes Denies change in vision - ENT Denies change in voice - *Cardiovascular Denies chest pain at rest - *Respiratory Reports chest congestion, Reports cough - *Gastrointestinal Denies change in bowel habits, Denies nausea, Denies vomiting - *Genitourinary Denies abnormal periods - *Musculoskeletal Reports radiating pain into limb, Denies back pain - Integumentary/Breasts Denies rash - *Neurologic Reports radiating pain, Denies dizziness, Denies fainting - Psychiatric Denies anxiety - Endocrine Denies flushing - Hematologic/Lymphatic Denies enlarged lymph nodes - Allergic/Immunologic Denies hives Exam Vital signs and Labs for Last 24 Hours: Temp Pulse Resp BP Pulse Ox 97.4 F L 94 H 22 138/97 H 92 L 10/19/18 08:00 10/19/18 08:00 10/19/18 08:00 10/19/18 08:00 10/19/18 09:38 Laboratory Results - last 24 hr 10/18/18 19:45: WBC 5.2, RBC 4.46, Hgb 13.8, Hct 43.6, MCV 97.6, MCH 30.9, MCHC 31.6 L, RDW 13.3, Plt Count 187, MPV 8.8, Neut % (Auto) 61.9, Lymph % (Auto) 29.4, [place] % (Auto) 7.3, Eos % (Auto) 0.9, Baso % (Auto) 0.5, Neut # (Auto) 3.2, Lymph # (Auto) 1.5, [place] # (Auto) 0.4, Eos # (Auto) 0.1, Baso # (Auto) 0.0 10/18/18 19:45: Sodium 140, Potassium 3.6, Chloride 102, Carbon Dioxide 28, Anion Gap 13.6, BUN 24 H, Creatinine 0.99, Estimated Creat Clear 46, Estimated GFR 54 L, Est GFR ( Amer) 66, Glucose 93, Calcium 8.7, Total Bilirubin 0.8, AST 20, ALT 20, Alkaline Phosphatase 71, Total Protein 7.4, Albumin 3.5, Globulin 3.9 H, Albumin/Globulin Ratio 0.9 L 10/18/18 19:45: Lactate 1.3 10/18/18 19:45: Influenza Type A Ag Negative, Influenza Type B Ag Negative 10/18/18 19:45: B-Natriuretic Peptide 35 I & O for Last 24 hours: Intake & Output 10/17/18 10/18/18 10/19/18 10/20/18 11:59 11:59 11:59 11:59 Intake Total 240 / 240 Balance 240 / 240 Weight 140 lb 2 oz Microbiology Reports for the Last 24 Hours: Microbiology 10/18/18 20:33 Sputum - Expectorated Sputum Gram Stain - Final 10/18/18 20:33 Sputum - Expectorated Sputum Sputum Culture - Preliminary - Constitutional no acute distress - *Routine HEENT Exam Head: Present: normocephalic Eye: Present: PERRL ENT: Present: mucous membranes moist - *Routine Neck Exam Present: supple. Absent: lymphadenopathy - *Routine Respiratory Exam Present: CTA bilaterally, wheezes Comments: Scattered wheezing clears with cough - *Routine Cardiovascular Exam Present: RRR - *Routine Abdominal Exam Present: soft, normoactive bowel sounds. Absent: tenderness - *Routine Extremities Exam Absent: cyanosis, clubbing, edema Comments: Right hip pain that radiates down extremity - *Routine Skin Exam Present: warm. Absent: rash - *Routine Neurological Exam Present: alert, oriented X3 Hospital Course Hospital Course: chest x ray:IMPRESSION: COPD/emphysema with pulmonary fibrosis. No new areas of consolidation apparent Today patient says she is not having any breathing problems her only complaint is her right hip area with pain radiating down her extremity. Patient states this been going on for months and has primarily been worked up. Results Labs on day of discharge: Labs from last 24 hours 10/18/18 10/18/18 10/18/18 19:45 19:45 19:45 WBC RBC Hgb Hct MCV MCH MCHC RDW Plt Count MPV Neut % (Auto) Lymph % (Auto) [place] % (Auto) Eos % (Auto) Baso % (Auto) Neut # (Auto) Lymph # (Auto) [place] # (Auto) Eos # (Auto) Baso # (Auto) Sodium Potassium Chloride Carbon Dioxide Anion Gap BUN Creatinine Estimated Creat Clear Estimated GFR Est GFR ( Amer) Glucose Lactate 1.3 Calcium Total Bilirubin AST ALT Alkaline Phosphatase B-Natriuretic Peptide 35 Total Protein Albumin Globulin Albumin/Globulin Ratio Influenza Type A Ag Negative Influenza Type B Ag Negative 10/18/18 10/18/18 19:45 19:45 WBC 5.2 RBC 4.46 Hgb 13.8 Hct 43.6 MCV 97.6 MCH 30.9 MCHC 31.6 L RDW 13.3 Plt Count 187 MPV 8.8 Neut % (Auto) 61.9 Lymph % (Auto) 29.4 [place] % (Auto) 7.3 Eos % (Auto) 0.9 Baso % (Auto) 0.5 Neut # (Auto) 3.2 Lymph # (Auto) 1.5 [place] # (Auto) 0.4 Eos # (Auto) 0.1 Baso # (Auto) 0.0 Sodium 140 Potassium 3.6 Chloride 102 Carbon Dioxide 28 Anion Gap 13.6 BUN 24 H Creatinine 0.99 Estimated Creat Clear 46 Estimated GFR 54 L Est GFR ( Amer) 66 Glucose 93 Lactate Calcium 8.7 Total Bilirubin 0.8 AST 20 ALT 20 Alkaline Phosphatase 71 B-Natriuretic Peptide Total Protein 7.4 Albumin 3.5 Globulin 3.9 H Albumin/Globulin Ratio 0.9 L Influenza Type A Ag Influenza Type B Ag Preliminary micro results at discharge 10/18/18 20:33 Sputum Culture - Preliminary Sputum - Expectorated Sputum - Additional Comments Spoke with Dr. Charles. All orders per Melvin Discharge Medications - Medications for Discharge Home Medication List at Discharge: No Action aspirin 81 mg tablet,delayed release 81 mg PO DAILY cyclobenzaprine 10 mg tablet 10 mg PO TID montelukast 10 mg tablet 10 mg PO HS losartan 100 mg tablet 100 mg PO DAILY #30 tab levothyroxine 88 mcg tablet 88 mcg PO DAILY #90 tab pregabalin 75 mg capsule 100 mg PO TID atorvastatin 20 mg tablet 20 mg PO HS #90 tab Metoprolol Succinate [Toprol XL 50mg Tablet] 25 mg PO DAILY Disposition Disposition: Home, Self-Care
== END 2018-10-19 14:20 | disposition home or self-care (01) ==
LOC: ER 19:20 → 2ND 19:20
PROVIDERS: ADMIT Family Medicine; ATTEND Emergency Medicine
CPT/HCPCS: 71020; 71046; 80053; 83605; 83880; 85025; 87040; 87070; 87077; 87205; 87275; 87276; 94761; 96374; 99285; G0378

== ENCOUNTER → 2019-02-04 15:45 | Outpatient (POV) | payer MEDICARE, MEDICAID, SELFPAY ==
[2019-02-04 15:58] VITALS: BP 157/88; PULSE 75; RESP 18; O2SAT 98; BMI 27.3
--- NOTE | 2019-02-05 08:18 | HMH.PAINSOAP ---
[facility] Pain Management SOAP Note Subjective:: Patient is a pleasant 70-year-old white female who presents today for follow-up. She is currently finished rehabilitation at [facility]. She is doing extremely well she is now walking. She rates her pain a 6 out of 10. Patient and I have discussed mild procedure in the past and she still may be a candidate however her most daunting pain today is her right knee. Patient has a Neal's cyst. Patient has not seen Ortho lately. We will send her for an orthopedic consult ROS General: no recent weight change, no fever, no sleep disturbances Respiratory: no cough, no shortness of air, no recurring pulmonary infections Cardiovascular/Peripheral Vascular: No chest pain, No palpitations, no edema, no shortness of breath. Gastrointestinal: no incontinence, normal bowel movements reported Genitourinary: no incontinence Musculoskeletal: Back pain, knee pain Psychiatric: normal mood/ affect Neurological: [denies weakness in extremities], [denies balance issues] Objective:: Physical Exam General: Alert and oriented x3, no acute distress, pleasant and cooperative, [on room air] Lungs: Resps E/U, Symmetrical chest expansion, Eyes: PERRL Musculoskeletal: Flexion and extension of lumbar spine somewhat guarded secondary to pain, deep tendon reflexes normal, strength in upper and lower extremities [5/5], [abnormal gait noted] Neurological: speech clear, rack puncher equal, no gross sensory deficits Assessment:: Degenerative disc disease lumbar spine with lumbar radiculopathy, spinal stenosis, right knee pain Plan:: We will send the patient to orthopedic for consultation in regards to her right knee pain I will follow-up with her after this and reassess her at that time. She is been instructed to call the office if she has any issues prior to her next appointment. Dr. Chopra has reviewed this note and agrees with this plan of care. This note was dictated using voice recognition software and may contain errors or omissions
--- NOTE | 2019-02-05 08:22 | P.CONS_ITS ---
[facility] Pain Management SOAP Note Subjective:: Patient is a pleasant 70-year-old white female who presents today for follow-up. She is currently finished rehabilitation at [facility]. She is doing extremely well she is now walking. She rates her pain a 6 out of 10. Patient and I have discussed mild procedure in the past and she still may be a candidate however her most daunting pain today is her right knee. Patient has a Neal's cyst. Patient has not seen Ortho lately. We will send her for an orthopedic consult ROS General: no recent weight change, no fever, no sleep disturbances Respiratory: no cough, no shortness of air, no recurring pulmonary infections Cardiovascular/Peripheral Vascular: No chest pain, No palpitations, no edema, no shortness of breath. Gastrointestinal: no incontinence, normal bowel movements reported Genitourinary: no incontinence Musculoskeletal: Back pain, knee pain Psychiatric: normal mood/ affect Neurological: [denies weakness in extremities], [denies balance issues] Objective:: Physical Exam General: Alert and oriented x3, no acute distress, pleasant and cooperative, [on room air] Lungs: Resps E/U, Symmetrical chest expansion, Eyes: PERRL Musculoskeletal: Flexion and extension of lumbar spine somewhat guarded secondary to pain, deep tendon reflexes normal, strength in upper and lower extremities [5/5], [abnormal gait noted] Neurological: speech clear, dispatcher maintenance equal, no gross sensory deficits Assessment:: Degenerative disc disease lumbar spine with lumbar radiculopathy, spinal stenosis, right knee pain Plan:: We will send the patient to orthopedic for consultation in regards to her right knee pain I will follow-up with her after this and reassess her at that time. She is been instructed to call the office if she has any issues prior to her next appointment. Dr. Chopra has reviewed this note and agrees with this plan of care. This note was dictated using voice recognition software and may contain errors or omissions
== END ==
PROVIDERS: PCP Nurse Practitioner Family; Visit Provider Clinical Nurse Specialist Family Health
DX: M51.16 Intervertebral disc disorders with radiculopathy, lumbar region (principal); M25.561 Pain in right knee; M48.00 Spinal stenosis, site unspecified
CPT/HCPCS: 99212

== ENCOUNTER → 2019-02-15 14:47 | Outpatient (CLI) | payer MEDICARE, MEDICAID, SELFPAY ==
--- NOTE | 2019-02-15 14:56 | XR_ITS ---
XR knee RT 2V HISTORY: Knee pain ITS.REASON: BAKERS CYST ORDERING PHYSICIAN: Jeanette Holly APRN PATIENT AGE: 78 years COMPARISON: 08/18/2015. FINDINGS: There are moderate osteoarthritic changes of the knee involving all 3 compartments greater at the medial compartment. This has somewhat progressed compared to the previous exam. Calcification is present along the posterior aspect of the popliteal fossa and could represent a synovial osteochondroma within a Neal's cyst. MRI may be of further value IMPRESSION: Osteoarthritis slightly worse with calcific density posterior to the knee joint possibly representing a synovial ostial chondroma within a Neal's cyst and could be confirmed with MRI
== END ==
PROVIDERS: Visit Provider Clinical Nurse Specialist Family Health
DX: M25.561 Pain in right knee (principal)
CPT/HCPCS: 73560

== ENCOUNTER → 2019-02-25 13:06 | Outpatient (POV) | payer MEDICARE, MEDICAID, SELFPAY ==
[2019-02-25 13:26] VITALS: BP 133/83; PULSE 68; RESP 18; O2SAT 98; BMI 27.3
--- NOTE | 2019-02-25 13:47 | HMH.PAINSOAP ---
[facility] Pain Management SOAP Note Subjective:: Patient is a 78-year-old white female who presents today for follow-up visit after seeing Dr. Gentile, orthopedics, for a Neal's cyst right knee. Per Dr. Gentile, the cyst was not large enough for removal. She did receive injections to the right knee and reports 100% relief. The patient is continuing with a home stretching program for greater functionality. Family reports that she was chair bound last year and is now will to ambulate without a walker and wheelchair. She also plated rehabilitation at [facility]. Patient did discuss a mild procedure today, but states that she still does not feel like she is ready for this right now. Patient rates her pain a 0 out of 10 ROS General: no recent weight change, no fever, no sleep disturbances Respiratory: no cough, no shortness of air, no recurring pulmonary infections Cardiovascular/Peripheral Vascular: No chest pain, No palpitations, no edema, no shortness of breath. Gastrointestinal: no incontinence, normal bowel movements reported Genitourinary: no incontinence Musculoskeletal: Right knee pain, back pain Psychiatric: normal mood/ affect, [denies depression], [denies anxiety] Neurological: [denies weakness in extremities], [denies balance issues] Objective:: Physical Exam General: Alert and oriented x3, no acute distress, pleasant and cooperative, [on room air] Lungs: Resps E/U, Symmetrical chest expansion, Eyes: PERRL Musculoskeletal: Flexion and extension of lumbar spine somewhat guarded secondary to pain, deep tendon reflexes normal, strength in upper and lower extremities [5/5], slightly antalgic gait noted. Neurological: speech clear, skin carver equal, no gross sensory deficits Assessment:: Degenerative disc disease lumbar spine with lumbar radiculopathy, spinal stenosis, right knee pain with Neal's cyst Plan:: The patient is doing well today. She does not have any interest in the mild procedure at this time. She will also up with us in 2 months to reassess her times at that time. Instructed to call the office if she has any concerns prior to the next appointment. Dr. Chopra has reviewed this note and agrees with this plan of care. This note was dictated using voice recognition software and may contain errors or omissions
--- NOTE | 2019-02-25 13:52 | P.CONS_ITS ---
[facility] Pain Management SOAP Note Subjective:: Patient is a 78-year-old white female who presents today for follow-up visit after seeing Dr. Gentile, orthopedics, for a Neal's cyst right knee. Per Dr. Gentile, the cyst was not large enough for removal. She did receive injections to the right knee and reports 100% relief. The patient is co ntinuing with a home stretching program for greater functionality. Family reports that she was chair bound last year and is now will to ambulate without a walker and wheelchair. She also plated rehabilitation at [facility]. Patient did discuss a mild procedure today, but states that she still does not feel like she is ready for this right now. Patient rates her pain a 0 out of 10 ROS General: no recent weight change, no fever, no sleep disturbances Respiratory: no cough, no shortness of air, no recurring pulmonary infections Cardiovascular/Peripheral Vascular: No chest pain, No palpitations, no edema, no shortness of breath. Gastrointestinal: no incontinence, normal bowel movements reported Genitourinary: no incontinence Musculoskeletal: Right knee pain, back pain Psychiatric: normal mood/ affect, [denies depression], [denies anxiety] Neurological: [denies weakness in extremities], [denies balance issues] Objective:: Physical Exam General: Alert and oriented x3, no acute distress, pleasant and cooperative, [on room air] Lungs: Resps E/U, Symmetrical chest expansion, Eyes: PERRL Musculoskeletal: Flexion and extension of lumbar spine somewhat guarded secondary to pain, deep tendon reflexes normal, strength in upper and lower extremities [5/5], slightly antalgic gait noted. Neurological: speech clear, cattle alley worker equal, no gross sensory deficits Assessment:: Degenerative disc disease lumbar spine with lumbar radiculopathy, spinal stenosis, right knee pain with Neal's cyst Plan:: The patient is doing well today. She does not have any interest in the mild procedure at this time. She will also up with us in 2 months to reassess her times at that time. Instructed to call the office if she has any concerns prior to the next appointment. Dr. Chopra has reviewed this note and agrees with this plan of care. This note was dictated using voice recognition software and may contain errors or omissions
== END ==
PROVIDERS: PCP Nurse Practitioner Family; Visit Provider Clinical Nurse Specialist Family Health
DX: M48.062 Spinal stenosis, lumbar region with neurogenic claudication (principal); M48.00 Spinal stenosis, site unspecified; M71.21 Synovial cyst of popliteal space [Baker], right knee
CPT/HCPCS: 99212

== ENCOUNTER → 2019-07-15 10:07 | Outpatient (CLI) | payer MEDICARE, MEDICAID, SELFPAY ==
--- NOTE | 2019-07-15 10:12 | XR_ITS ---
PROCEDURE: XR ANKLE LT MIN 3V CLINICAL INDICATION: Left ankle pain COMPARISON: No exams were available for comparison FINDINGS: No fracture or dislocation. No lytic or blastic change. There mild diffuse osteopenia IMPRESSION: No acute findings. Dictated by: Contreras Diop MD 07/15/2019 11:47 Electronically signed by Contreras Diop MD in [place] 07/15/2019 11:47
== END ==
PROVIDERS: PCP Social Worker; Visit Provider Orthopaedic Surgery
DX: M25.572 Pain in left ankle and joints of left foot (principal)
CPT/HCPCS: 73610

== ENCOUNTER 2019-09-09 11:46 | Outpatient (RCR) | payer MEDICARE, MEDICAID, SELFPAY | END 2019-09-09 12:05 | disposition home or self-care (01) | LOC: PT 11:46 | PROVIDERS: Visit Provider Orthopaedic Surgery | DX: M25.572 Pain in left ankle and joints of left foot (principal) | CPT/HCPCS: 97760 ==

== ENCOUNTER → 2019-09-23 10:42 | Outpatient (POV) | payer MEDICARE, MEDICAID, SELFPAY ==
[2019-09-23 11:11] VITALS: BP 123/66; PULSE 68; RESP 18; O2SAT 99; BMI 27.3
--- NOTE | 2019-09-23 11:11 | HMH.PAINSOAP ---
[facility] Pain Management SOAP Note Subjective:: Patient is a pleasant 79-year-old white female who presents today for follow-up. Patient has had some health setbacks. Patient was diagnosed with stroke 05 May. After this she was diagnosed with a septic coma and spent some time in ICU and [facility]. Patient then went to rehabilitation for several months she is now back home she rates her pain a 0 out of 10 however when she is moving and doing physical therapy her pain is significant. Mostly in her lower back and legs. She is had epidural injections in the past with good relief. She would like to move forward with this. Patient's not on any antibiotics nor is she on any anticoagulation therapy. She is continuing physical therapy at home ROS General: no recent weight change, no fever, no sleep disturbances Respiratory: no cough, no shortness of air, no recurring pulmonary infections Cardiovascular/Peripheral Vascular: No chest pain, No palpitations, no edema, no shortness of breath. Gastrointestinal: no new onset incontinence, normal bowel movements reported Genitourinary: no new onset incontinence Musculoskeletal: Back pain, leg pain Psychiatric: normal mood/ affect Neurological: [denies new onset weakness in extremities], [denies new onset balance issues] Objective:: Physical Exam General: Alert and oriented x3, no acute distress, pleasant and cooperative, [on room air] Lungs: Resps E/U, Symmetrical chest expansion, Eyes: PERRL Musculoskeletal: Flexion and extension of lumbar spine somewhat guarded secondary to pain, deep tendon reflexes normal, strength in upper and lower extremities [5/5], [abnormal gait noted] Neurological: speech clear, medical illustrator equal, no gross sensory deficits Assessment:: Degenerative disc disease lumbar spine with lumbar radiculopathy, spinal stenosis Plan:: We will set up the patient for an L4-L5 lumbar epidural steroid injection. Given the efficacy in the past I do believe it be beneficial I did give the patient and her the patient's family information on intrathecal therapy along with neuro stimulation for potential future treatment options. I will follow-up with the patient after her injection reassess her symptoms at that time she is been instructed to call the office if she has any issues prior to her next appointment. Dr. Chopra has reviewed this note and agrees with this plan of care. This note was dictated using voice recognition software and may contain errors or omissions [facility] History I have reviewed the patient's past medical history: Yes Medical History: Reports:: Congestive Heart Failure, Chronic Obstructive Pulmonary Disease (COPD), Coronary Artery Disease, Hyperlipidemia, Hypertension, Lung Disease, Palpitations Denies:: Cancer, Diabetes Mellitus Type 1, Diabetes Mellitus Type 2, Internal Pacemaker, MRSA, Seizures *Have you ever received a pneumonia vaccine?: Yes *Have you received a flu vaccine this season?: No Other Medical History: Reports: Hypothyroidism, Sinus Problems, Other. Denies: Blood Transfusion Reaction Laterality Cases: Right: Arthroscopy Knee, Bilateral: Carpal Tunnel Release Other Surgeries: Yes: Cardiac Catheterization, Cardiac Surgery, Colonoscopy, Coronary Stent. No: Pacemaker Amputation: No Fractures: No - *Social History Smoking Status: Never smoker Tobacco Type: cigarettes Alcohol Intake: never Alcohol Intake Frequency:: other Substance Use Type: denies use *Occupational Status:: retired Housing: house Household Members: family *Travel in the last 8 weeks: None Family Hx:: Hypertension, Cancer
== END ==
PROVIDERS: PCP Nurse Practitioner Family; Visit Provider Clinical Nurse Specialist Family Health
DX: M51.16 Intervertebral disc disorders with radiculopathy, lumbar region (principal); M48.061 Spinal stenosis, lumbar region without neurogenic claudication
CPT/HCPCS: 99212

== ENCOUNTER 2019-12-10 19:59 | Observation (INO) ==
[2019-12-10 20:37] LABS: Basophils # 0.1 K/mm3 (0-0.2); Basophils % 0.9 % (0.1-2.0); Eosinophils # 0.2 K/mm3 (0.0-0.4); Eosinophils % 4.6 % (0.1-12.0); Hematocrit 46.3 % (37.0-47.0); Hemoglobin 15.2 g/dL (12.2-16.2); Lymphocytes # 2.3 K/mm3 (0.7-4.5); Lymphocytes % 42.4 % (10-50); Mean Corpuscular HGB Conc 32.9 g/dL (31.8-35.4); Mean Corpuscular Volume 93.7 fl (81-99); Mean Platelet Volume 8.7 fl (7.4-10.4); Monocytes # 0.3 K/mm3 (0.1-1.0); Monocytes % 5.4 % (1.7-9.3); Neutrophils # 2.5 K/mm3 (1.8-7.8); Neutrophils % 46.8 % (37.0-80.0); Platelet Count 169 K/mm3 (142-424); Red Blood Count 4.94 M/mm3 (4.20-5.40); Red Cell Distribution Width 13.5 % (11.5-17.5); White Blood Count 5.3 K/mm3 (4.8-10.8)
[2019-12-10 20:40] LABS: Chloride 101 mmol/L (98-107)
[2019-12-10 20:41] LABS: Sodium 140 mmol/L (136-145)
[2019-12-10 20:43] LABS: Alanine Aminotransferase 18 U/L (12-78); Albumin Level 4.3 g/dl (3.5-5.0); Albumin/Globulin Ratio 1.3 (1.1-1.8); Alkaline Phosphatase 82 U/L (38-126); Anion Gap 12.1 mEq/L (5-15); Aspartate Amino Transferase 30 U/L (14-36); Bilirubin,Total 0.4 mg/dl (0.2-1.3); Blood Urea Nitrogen 13 mg/dl (7-17); Calcium 9.3 mg/dl (8.4-10.2); Carbon Dioxide 31 mmol/L (22.0-30.0); Globulin 3.3 g/dL (1.3-3.2); Glucose 140 mg/dl (74-100); Total Protein,Serum 7.6 g/dl (6.3-8.2)
--- NOTE | 2019-12-10 21:03 | Emergency Department Note ---
ED Disposition Clinical Impression: Obesity (BMI 30.0-34.9) Community acquired pneumonia Qualifiers: Laterality: right Lung location: lower lobe of lung Qualified Code(s): J18.9 - Pneumonia, unspecified organism Chronic pain Qualifiers: Chronic pain type: chronic pain syndrome Qualified Code(s): G89.4 - Chronic pain syndrome Disposition: Admitted as Observation Condition on Discharge: Good Referrals: Ricardo Charles MD [Primary Care Provider] - - Critical Care Critical Care Time: No Attestation: On 12/10/19, the high probability of a clinically significant, sudden or life threatening deterioration of the following system(s) required my full and direct attention, intervention and personal management. The time I documented below is in addition to time spent performing reported procedures but includes the following listed in this critical care notation. Medical Decision Making - Medical Records Medical records reviewed: Yes: I reviewed the patient's medical records. - [place] Inquiry Pt receiving controlled substance: No Vital Signs: 12/10/19 20:20 Temperature 98.3 F Temperature Source Oral Pulse Rate [Right Brachial] 82 Respiratory Rate 18 Blood Pressure [Right Arm] 172/87 H Blood Pressure Mean [Right Arm] 115 Blood Pressure Source [Right Arm] Automatic Cuff Blood Pressure Position [Right Arm] Sitting 02 Sat by Pulse Oximetry 93 L Oxygen Delivery Method Room Air - Lab Data Lab results reviewed: Yes: I reviewed the patient's lab results. Lab Results 12/10/19 20:21: WBC 5.3, RBC 4.94, Hgb 15.2, Hct 46.3, MCV 93.7, MCH 30.8, MCHC 32.9, RDW 13.5, Plt Count 169, MPV 8.7, Neut % (Auto) 46.8, Lymph % (Auto) 42.4, [place] % (Auto) 5.4, Eos % (Auto) 4.6, Baso % (Auto) 0.9, Neut # (Auto) 2.5, Lymph # (Auto) 2.3, [place] # (Auto) 0.3, Eos # (Auto) 0.2, Baso # (Auto) 0.1 12/10/19 20:21: Sodium 140, Potassium 4.1, Chloride 101, Carbon Dioxide 31 H, Anion Gap 12.1, BUN 13, Creatinine 0.70, Estimated Creat Clear 52, Estimated GFR 81, Est GFR ( Amer) 98, Glucose 140 H, Calcium 9.3, Total Bilirubin 0.4, AST 30, ALT 18, Alkaline Phosphatase 82, Troponin I < 0.01, Total Protein 7.6, Albumin 4.3, Globulin 3.3 H, Albumin/Globulin Ratio 1.3 12/10/19 20:21: Lactate 2.3 H Result diagrams: 12/10/19 20:21 12/10/19 20:21 Orders (Tests/Meds): ED MEDICATIONS Discontinued Medications Generic Name Dose Route Start Last Admin Trade Name Freq PRN Reason Stop Dose Admin Albuterol/Ipratropium 3 ml 12/10/19 20:26 12/10/19 20:27 Duoneb 3ml Neb IH 12/10/19 20:27 3 ml ONCE ONE Administration Methylprednisolone Sodium Succinate 125 mg 12/10/19 20:26 12/10/19 20:27 Solu-Medrol 125mg/2ml Vial IV 12/10/19 20:27 125 mg ONCE ONE Administration ORDERS Category Date Time Status XR chest 2V Stat Exams 12/10/19 20:24 Stop Req Rapid Influenza A&B Antigens Stat Lab 12/10/19 20:21 Received Troponin I Q3H Lab 12/10/19 23:30 Ordered Troponin I Q3H Lab 12/11/19 02:30 Ordered Urinalysis and Microscopic Stat Lab 12/10/19 20:24 Ordered Blood Culture Stat Micro 12/10/19 20:21 Received - Radiology Data #1 Image(s): Chest Image Reviewed: Yes I reviewed the patient's radiology image Preliminary Findings: Abnormal (rt lower lobe ) - ECG Data Tracing #1 Normal Sinus Rhythm: Yes Ischemic changes: non-specific ST-T wave changes Resp/SOB HPI - General Chief Complaint: Shortness of Breath/Dyspnea Stated Complaint: SOB,Cough,fever Time Seen by Provider: 12/10/19 20:30 Mode of Arrival: Wheelchair Source of Information: Patient, Medical Record Limitations: No Limitations Description of Symptoms (Recalled from ER Triage Doc. by RN): Patient was sent per Eugonda for diagnosed pneumonia, SOA/wheezing and fever. - History of Present Illness pt with sob and occ prod cough over the last few days - no known exposure to covid - has been on abx for about 2 days with no improvement - MD Complaint: shortness of breath, cough Onset (ago): day(s) Severity: moderate Associated symptoms: denies other symptoms Treatment prior to arrival: none - Related Data Home oxygen amount: none Home Medications Medication Instructions Recorded Confirmed Pregabalin [Lyrica] 150 mg PO TID 08/11/19 12/10/19 Pregabalin 100 mg PO DAILY 09/27/19 12/10/19 Azithromycin [Z-Johnny 250mg Tab*] 250 mg PO UD DOSE PK 12/10/19 12/10/19 Cefdinir [Omnicef 300mg Capsule] 300 mg PO BID 12/10/19 12/10/19 Gentamicin Sulfate [Garamycin 0.3% 1 - 2 drops EYE-LEFT Q4H 12/10/19 12/10/19 opth alisia 5mL] Previous Rx's Medication Instructions Recorded aspirin 81 mg tablet,delayed 81 mg PO DAILY #90 tab 03/22/19 release hydroxyzine HCl 25 mg tablet 25 mg PO QID PRN #90 tab 09/05/19 carvedilol 6.25 mg tablet 6.25 mg PO BID #60 tab 11/05/19 levetiracetam 500 mg tablet 500 mg PO BID #60 tab 11/05/19 levothyroxine 88 mcg tablet 88 mcg PO DAILY #90 tab 11/05/19 montelukast 10 mg tablet 10 mg PO HS #90 tab 11/05/19 atorvastatin 20 mg tablet 20 mg PO HS #90 tab 11/06/19 Allergies Allergy/AdvReac Type Severity Reaction Status Date / Time carbamazepine Allergy Intermediate I-ITCHING Verified 12/10/19 20:26 promethazine Allergy Mild "MAKES Verified 12/10/19 20:26 HYPER" H History - Hepatitis A Screen Drug use history?: No High risk sexual behaviors?: No History of sexually transmitted infection?: No Currently employed?: No Childcare worker?: No Do you have indoor plumbing?: Yes Do you have electricity?: Yes Attestation statement:: This patient has been screened for Hepatitis A risk factors. I have reviewed the patient's past medical history: Yes Medical History: Reports:: Congestive Heart Failure, Chronic Obstructive Pulmonary Disease (COPD), Coronary Artery Disease, Hyperlipidemia, Hypertension, Lung Disease, Palpitations Denies:: Cancer, Diabetes Mellitus Type 1, Diabetes Mellitus Type 2, Internal Pacemaker, MRSA, Seizures Other Medical History: Reports: Hypothyroidism, Sinus Problems, Other. Denies: Blood Transfusion Reaction Laterality Cases: Right: Arthroscopy Knee, Bilateral: Carpal Tunnel Release Other Surgeries: Yes: Cardiac Catheterization, Cardiac Surgery, Colonoscopy, Coronary Stent. No: Pacemaker Amputation: No Fractures: No Comment: Knee surgery 04/2016 - Social History Smoking Status: Never smoker Tobacco Type: cigarettes Alcohol Intake: never Alcohol Intake Frequency:: other Substance Use Type: denies use Occupational Status: retired Housing: house Household Members: family Family Hx:: Hypertension, Cancer ROS Obtained: Yes All systems reviewed & no additional complaints - Constitutional Constitutional: Denies fever(s) - Eyes Eyes: Denies change in vision - ENT Ears, Nose, Mouth, and Throat: Denies sore throat - Cardiovascular Cardiovascular: Denies chest pain, Denies dyspnea - Respiratory Respiratory: Yes cough, No coughing up blood - Gastrointestinal Gastrointestingal: Denies: vomiting - Genitourinary Female Genitourinary: Denies hematuria - Musculoskeletal Musculoskeletal: Denies joint swelling - Integumentary/Breasts Skin/Breast: Denies rash - Neurologic Neurologic: Denies seizure-like activity Physical Exam - General General appearance: alert, obese - Head Head exam: normocephalic - Eye Eye exam: Present: PERRL, EOMI. Absent: scleral icterus - ENT ENT exam: Present: mucous membranes dry - Neck Neck exam: Present: trachea midline - Respiratory Respiratory exam: Present: wheezes, other (rhonchi). Absent: respiratory distress - Cardiovascular Cardiovascular exam: Present: regular rate, systolic murmur, +S4 - Abdominal Exam Abdominal exam: Present: soft - Extremities Exam Extremities exam: Present: pedal edema. Absent: calf tenderness - Neurological Exam Neurological exam: Present: alert, CN II-XII intact - Psychiatric Psychiatric exam: Present: normal affect - Skin Skin exam: Absent: rash
[2019-12-11 06:44] LABS: Basophils % 0.4 % (0.1-2.0); Lymphocytes # 0.9 K/mm3 (0.7-4.5); Red Cell Distribution Width 13.4 % (11.5-17.5)
[2019-12-11 07:27] LABS: Eosinophils % 0.7 % (0.1-12.0); Hematocrit 40.4 % (37.0-47.0); Mean Corpuscular HGB Conc 32.2 g/dL (31.8-35.4); Mean Corpuscular Volume 92.7 fl (81-99); Monocytes % 1.4 % (1.7-9.3); Neutrophils % 68.5 % (37.0-80.0); Platelet Count 167 K/mm3 (142-424); Red Blood Count 4.35 M/mm3 (4.20-5.40)
--- NOTE | 2019-12-11 07:33 | Pharmacy Consult Notes ---
[facility] Pharmacy VTE Monitoring - Patient Demographics Admission date: 12/10/19 Report Date: 12/11/19 Time: 07:33 Allergies/Adverse Reactions: Patient Allergies carbamazepine Allergy (Intermediate, Verified 12/10/19 20:26) I-ITCHING promethazine Allergy (Mild, Verified 12/10/19 20:26) "MAKES HYPER" Height: 1.52 m Weight: 68.181 kg Patient Problems: Current Active Problems Community acquired pneumonia (Acute) Obesity (BMI 30.0-34.9) (Acute) Chronic pain (Chronic) - VTE Risk Labs: VTE Related Lab Results Hgb 13.0 g/dL (12.2-16.2) D 12/11/19 06:02 Hct 40.4 % (37.0-47.0) 12/11/19 06:02 Plt Count 167 K/mm3 (142-424) 12/11/19 06:02 BUN 16 mg/dl (7-17) 12/11/19 06:02 Creatinine 0.70 mg/dl (0.52-1.04) 12/11/19 06:02 Estimated Creat Clear 49 mL/min (50-200) 12/11/19 06:02 Was VTE Risk Assessment Performed: Yes VTE Score: 4 VTE Risk Level: Low Risk Clinical Trial Participant: No - Prophylaxis VTE Prophylaxis Ordered?: Yes Types of VTE Prophylaxis: TEDS Knee High Location of Applied Device: Bilateral Lower Extremeties
--- NOTE | 2019-12-11 08:38 | History & Physical Report ---
*Admission Date: 12/10/19 *Chief complaint: Shortness of breath *History of present illness: 79-year-old female presented to the ER with complaints of shortness of breath, wheezing, fever and weakness. Patient had been seen at [facility] and diagnosed with pneumonia and placed on antibiotics but has had no improvement. Patient admitted for right lower lobe pneumonia failed outpatient therapy. Patient will be placed on IV antibiotics and oxygen. Pulse ox is 92 to 93% on room air patient has an increased work of breathing. Patient is asking for physical therapy due to the weakness. [facility] History I have reviewed the patient's past medical history: Yes Medical History: Reports:: Congestive Heart Failure, Chronic Obstructive Pulmonary Disease (COPD), Coronary Artery Disease, Hyperlipidemia, Hypertension, Lung Disease, Palpitations Denies:: Cancer, Diabetes Mellitus Type 1, Diabetes Mellitus Type 2, Internal Pacemaker, MRSA, Seizures *Have you ever received a pneumonia vaccine?: Yes *Have you received a flu vaccine this season?: Yes Other Medical History: Reports: Hypothyroidism, Sinus Problems, Thyroid Disease, Other. Denies: Blood Transfusion Reaction Laterality Cases: Right: Arthroscopy Knee, Bilateral: Carpal Tunnel Release Other Surgeries: Yes: Cardiac Catheterization, Cardiac Surgery, Colonoscopy, Cor onary Stent. No: Pacemaker Amputation: No Fractures: No - *Social History Educational Level: Attended High School Smoking Status: Former smoker Tobacco Type: cigarettes # Packs/Day (cigarettes): 1 Smoking End Date: 1988 Alcohol Intake: never Alcohol Intake Frequency:: other Substance Use Type: denies use *Occupational Status:: disabled Housing: house Household Members: family *Travel in the last 8 weeks: None Family Hx:: Cancer Review of Systems - Constitutional Reports fever(s), Reports malaise - Eyes Denies blurry vision - ENT Denies bleeding gums - *Cardiovascular Reports shortness of breath, Reports shortness of breath with activity, Denies excessive sweating - *Respiratory Reports change in phlegm color, Reports cough, Reports shortness of breath - *Gastrointestinal Denies abdominal pain - *Genitourinary Denies abnormal vaginal bleeding, Denies urinary incontinence - *Musculoskeletal Denies decreased muscle mass - Integumentary/Breasts Denies rash - *Neurologic Denies dizziness, Denies seizure-like activity - Psychiatric Denies anxiety - Endocrine Denies flushing - Hematologic/Lymphatic Denies enlarged lymph nodes - Allergic/Immunologic Denies lip swelling Meds Home Medications Medication Instructions Recorded Confirmed Type Pregabalin [Lyrica] 150 mg PO TID 08/11/19 12/11/19 History hydroxyzine HCl 25 mg tablet 25 mg PO QID PRN #90 tab 09/05/19 12/10/19 Rx Pregabalin 100 mg PO HS 09/27/19 12/11/19 History carvedilol 6.25 mg tablet 6.25 mg PO BID #60 tab 11/05/19 12/11/19 Rx montelukast 10 mg tablet 10 mg PO HS #90 tab 11/05/19 12/11/19 Rx atorvastatin 20 mg tablet 20 mg PO HS #90 tab 11/06/19 12/11/19 Rx Azithromycin [Z-Johnny 250mg Tab*] 250 mg PO DIRECTED 12/10/19 12/11/19 History Ipratropium/Albuterol Sulfate 3 ml IH Q6HP PRN 12/11/19 12/11/19 History [Duoneb 3mL neb] Levothyroxine Sodium 88 mcg PO DAILY 12/11/19 12/11/19 History [Levothyroxine 88mcg (0.088mg) Tab] levETIRAcetam [Levetiracetam] 500 mg PO BID 12/11/19 12/11/19 History Allergies Allergy/AdvReac Type Severity Reaction Status Date / Time carbamazepine Allergy Intermediate I-ITCHING Verified 12/10/19 20:26 promethazine Allergy Mild "MAKES Verified 12/10/19 20:26 HYPER" Exam Vital signs and Labs for Last 24 Hours: Temp Pulse Resp BP Pulse Ox 97.8 F 82 18 148/74 H 94 L 12/11/19 08:00 12/11/19 08:00 12/11/19 08:00 12/11/19 08:00 12/11/19 08:00 Laboratory Results - last 24 hr 12/10/19 20:01: Group A Strep Rapid Negative 12/10/19 20:21: WBC 5.3, RBC 4.94, Hgb 15.2, Hct 46.3, MCV 93.7, MCH 30.8, MCHC 32.9, RDW 13.5, Plt Count 169, MPV 8.7, Neut % (Auto) 46.8, Lymph % (Auto) 42.4, [place] % (Auto) 5.4, Eos % (Auto) 4.6, Baso % (Auto) 0.9, Neut # (Auto) 2.5, Lymph # (Auto) 2.3, [place] # (Auto) 0.3, Eos # (Auto) 0.2, Baso # (Auto) 0.1 12/10/19 20:21: Sodium 140, Potassium 4.1, Chloride 101, Carbon Dioxide 31 H, Anion Gap 12.1, BUN 13, Creatinine 0.70, Estimated Creat Clear 52, Estimated GFR 81, Est GFR ( Amer) 98, Glucose 140 H, Calcium 9.3, Total Bilirubin 0.4, AST 30, ALT 18, Alkaline Phosphatase 82, Troponin I < 0.01, Total Protein 7.6, Albumin 4.3, Globulin 3.3 H, Albumin/Globulin Ratio 1.3 12/10/19 20:21: Influenza Type A Ag Negative, Influenza Type B Ag Negative 12/10/19 20:21: Lactate 2.3 H 12/10/19 23:21: Troponin I < 0.01 12/11/19 00:30: Lactate 1.9 12/11/19 02:30: Troponin I < 0.01 12/11/19 06:02: WBC 3.0 L D, RBC 4.35, Hgb 13.0 D, Hct 40.4, MCV 92.7, MCH 29.8, MCHC 32.2, RDW 13.4, Plt Count 167, MPV 9.0, Neut % (Auto) 68.5, Lymph % (Auto) 29.0, [place] % (Auto) 1.4 L, Eos % (Auto) 0.7, Baso % (Auto) 0.4, Neut # (Auto) 2.0, Lymph # (Auto) 0.9, [place] # (Auto) 0.0 L, Eos # (Auto) 0.0, Baso # (Auto) 0.0 12/11/19 06:02: Sodium 141, Potassium 4.0, Chloride 106, Carbon Dioxide 28, Anion Gap 11.0, BUN 16, Creatinine 0.70, Estimated Creat Clear 49, Estimated GFR 81, Est GFR ( Amer) 98, Glucose 143 H, Calcium 9.0, Magnesium 1.9 I & O for Last 24 hours: Intake & Output 12/08/19 12/09/19 12/10/19 12/11/19 11:59 11:59 11:59 11:59 Intake Total 925 / 925 Output Total 250 / 250 Balance 675 / 675 Weight 150 lb 5 oz - Constitutional no acute distress - *Routine HEENT Exam Head: Present: normocephalic Eye: Present: PERRL ENT: Present: mucous membranes moist - *Routine Neck Exam Present: supple. Absent: lymphadenopathy - *Routine Respiratory Exam Present: decreased breath sounds, rhonchi - *Routine Cardiovascular Exam Present: RRR - *Routine Abdominal Exam Present: soft, normoactive bowel sounds. Absent: tenderness - *Routine Extremities Exam Present: normal capillary refill. Absent: cyanosis, clubbing, edema - *Routine Skin Exam Present: warm. Absent: rash - *Routine Neurological Exam Present: alert, oriented X3 - Routine Psychiatric Exam Present: normal affect Assessment and Plan (1) Community acquired pneumonia Current visit: Yes Status: Acute Qualifiers: Laterality: right Lung location: lower lobe of lung Qualified Code(s): J18.9 - Pneumonia, unspecified organism Category: Medical Code(s): J18.9 - Pneumonia, unspecified organism (2) Chronic pain Current visit: Yes Status: Chronic Qualifiers: Chronic pain type: chronic pain syndrome Qualified Code(s): G89.4 - Chronic pain syndrome Category: Medical Code(s): G89.29 - Other chronic pain - Assessment and plan all Dx Assessment and Plan for all problems:: Rounded with Dr. Charles all orders per Melvin Monitor labs and vitals Continue IV antibiotics O2 if needed
--- NOTE | 2019-12-11 21:38 | Electrocardiograph Report ---
APPROVED REPORT Exam: Resting ECG HR:77 bpm ECG Measurements Heart Rate 77 AXES MN 148 P 41 QRSd 74 QRS 0 QT 380 T36 QTc 430 <Conclusion> Normal sinus rhythm Nonspecific ST and T wave abnormality Abnormal ECG Electronically signed by : Anirudh Bear, 12/11/2019 21:37:59
[2019-12-12 06:49] LABS: Basophils % 0.3 % (0.1-2.0); Eosinophils % 0.4 % (0.1-12.0); Hematocrit 38.5 % (37.0-47.0); Hemoglobin 12.2 g/dL (12.2-16.2); Lymphocytes # 1.8 K/mm3 (0.7-4.5); Lymphocytes % 27.5 % (10-50); Mean Corpuscular HGB Conc 31.7 g/dL (31.8-35.4); Mean Corpuscular Volume 95.7 fl (81-99); Mean Platelet Volume 9.4 fl (7.4-10.4); Monocytes # 0.4 K/mm3 (0.1-1.0); Monocytes % 5.4 % (1.7-9.3); Neutrophils # 4.3 K/mm3 (1.8-7.8); Neutrophils % 66.4 % (37.0-80.0); Platelet Count 173 K/mm3 (142-424); Red Blood Count 4.02 M/mm3 (4.20-5.40); Red Cell Distribution Width 13.8 % (11.5-17.5); White Blood Count 6.4 K/mm3 (4.8-10.8)
[2019-12-12 07:27] LABS: Anion Gap 8.6 mEq/L (5-15)
[2019-12-12 07:28] LABS: Calcium 8.7 mg/dl (8.4-10.2)
--- NOTE | 2019-12-12 09:12 | Progress Note ---
Internal Medicine - PN: Subj *Date: 12/13/19 *Time: 09:19 Interval history: doing better- c/o of leg pain- occ cough Exam Vital signs and Labs for Last 24 Hours: Temp Pulse Resp BP Pulse Ox 98.1 F 94 H 24 140/71 94 L 12/12/19 08:00 12/12/19 08:00 12/12/19 08:00 12/12/19 08:00 12/12/19 08:00 Laboratory Results - last 24 hr 12/12/19 06:35: WBC 6.4 D, RBC 4.02 L, Hgb 12.2, Hct 38.5, MCV 95.7, MCH 30.3, MCHC 31.7 L, RDW 13.8, Plt Count 173, MPV 9.4, Neut % (Auto) 66.4, Lymph % (Auto) 27.5, [place] % (Auto) 5.4, Eos % (Auto) 0.4, Baso % (Auto) 0.3, Neut # (Auto) 4.3, Lymph # (Auto) 1.8, [place] # (Auto) 0.4, Eos # (Auto) 0.0, Baso # (Auto) 0.0 12/12/19 06:35: Sodium 143, Potassium 3.6, Chloride 109 H, Carbon Dioxide 29, Anion Gap 8.6, BUN 19 H, Creatinine 0.80, Estimated Creat Clear 50, Estimated GFR 69, Est GFR ( Amer) 84, Glucose 95, Calcium 8.7 I & O for Last 24 hours: Intake & Output 12/09/19 12/10/19 12/11/19 12/12/19 11:59 11:59 11:59 11:59 Intake Total 925 / 925 1807 / 1807 Output Total 250 / 250 1100 / 1100 Balance 675 / 675 707 / 707 Weight 150 lb 5 oz 154 lb 5 oz Microbiology Reports for the Last 24 Hours: Microbiology 12/10/19 20:01 Throat Group A Streptococcus Screen (RAE) - Final Negative for Group A Streptococcus. - Constitutional no acute distress - *Routine HEENT Exam Head: Present: normocephalic Eye: Present: EOMI, PERRL ENT: Present: mucous membranes dry - *Routine Neck Exam Present: supple. Absent: JVD - *Routine Respiratory Exam Present: decreased breath sounds - *Routine Cardiovascular Exam Present: RRR, murmur, S4 - *Routine Abdominal Exam Present: soft - *Routine Extremities Exam Present: calf tenderness - *Routine Skin Exam Present: intact - *Routine Neurological Exam Present: alert, CN II-XII intact - Routine Psychiatric Exam Present: normal affect Assessment and Plan (1) Community acquired pneumonia Current visit: Yes Status: Acute Qualifiers: Laterality: right Lung location: lower lobe of lung Qualified Code(s): J18.9 - Pneumonia, unspecified organism Category: Medical Code(s): J18.9 - Pneumonia, unspecified organism (2) Chronic pain Current visit: Yes Status: Chronic Qualifiers: Chronic pain type: chronic pain syndrome Qualified Code(s): G89.4 - Chronic pain syndrome Category: Medical Code(s): G89.29 - Other chronic pain
--- NOTE | 2019-12-12 16:09 | Cardiology Report ---
APPROVED REPORT Bilateral Lower Extremity Venous Study for DVT. Office Aide: CT Indications Lower Extremity Pain: Lower Extremity Swelling: swelling - pos homans Vein Imaging CFV (R): compressive, spontaneous, phasic, augmentation SFJ (R): compressive, spontaneous, phasic, augmentation FEM (R): compressive, spontaneous, phasic, augmentation POP (R): compressive, spontaneous, phasic, augmentation DFV (R): compressive, spontaneous, phasic, augmentation PTV (R): compressive, spontaneous, phasic, augmentation GSV (R): compressive, spontaneous, phasic, augmentation SSV (R): compressive, spontaneous, phasic, augmentation Peroneals (R):compressive, spontaneous, phasic, augmentation GAS (R): compressive, spontaneous, phasic, augmentation CFV (L): compressive, spontaneous, phasic, augmentation SFJ (L): compressive, spontaneous, phasic, augmentation FEM (L): compressive, spontaneous, phasic, augmentation POP (L): compressive, spontaneous, phasic, augmentation DFV (L): compressive, spontaneous, phasic, augmentation PTV (L): compressive, spontaneous, phasic, augmentation GSV (L): compressive, spontaneous, phasic, augmentation SSV (L): compressive, spontaneous, phasic, augmentation Peroneals (L):compressive, spontaneous, phasic, augmentation GAS (L): compressive, spontaneous, phasic, augmentation Findings Bilateral venous negative for SVT/DVT, vessels fully compressible. No reflux noted Conclusion No evidence of DVT or superficial thrombophlebitis in the veins scanned of the right lower extremity. No evidence of DVT or superficial thrombophlebitis in the veins scanned of the left lower extremity. Electronically signed by : Contreras Diop MD 12/12/2019 16:09:16
[2019-12-13 06:52] LABS: Anion Gap 11.8 mEq/L (5-15); Calcium 8.2 mg/dl (8.4-10.2)
[2019-12-13 08:18] LABS: Basophils % 0.7 % (0.1-2.0); Eosinophils # 0.2 K/mm3 (0.0-0.4); Hematocrit 41.2 % (37.0-47.0); Hemoglobin 12.8 g/dL (12.2-16.2); Lymphocytes # 1.9 K/mm3 (0.7-4.5); Lymphocytes % 38.8 % (10-50); Mean Corpuscular HGB Conc 31.1 g/dL (31.8-35.4); Mean Corpuscular Volume 96.3 fl (81-99); Mean Platelet Volume 9.4 fl (7.4-10.4); Monocytes # 0.3 K/mm3 (0.1-1.0); Monocytes % 6.5 % (1.7-9.3); Neutrophils # 2.5 K/mm3 (1.8-7.8); Platelet Count 177 K/mm3 (142-424); Red Blood Count 4.28 M/mm3 (4.20-5.40); Red Cell Distribution Width 13.9 % (11.5-17.5)
[2019-12-13 08:23] LABS: Anion Gap 7.7 mEq/L (5-15)
[2019-12-13 08:24] LABS: Calcium 8.6 mg/dl (8.4-10.2)
--- NOTE | 2019-12-13 09:41 | Progress Note ---
Internal Medicine - PN: Subj *Date: 12/13/19 *Time: 09:40 Interval history: pt eating breakfast. states feeling ok Exam Vital signs and Labs for Last 24 Hours: Temp Pulse Resp BP Pulse Ox 97.8 F 61 20 149/72 H 94 L 12/13/19 08:00 12/13/19 08:00 12/13/19 08:00 12/13/19 08:00 12/13/19 08:00 Laboratory Results - last 24 hr 12/13/19 06:26: Sodium 142, Potassium 3.8, Chloride 106, Carbon Dioxide 28, Anio n Gap 11.8, BUN 18 H, Creatinine 0.80, Estimated Creat Clear 51, Estimated GFR 69, Est GFR ( Amer) 84, Glucose 87, Calcium 8.2 L 12/13/19 08:06: WBC 5.0, RBC 4.28, Hgb 12.8, Hct 41.2, MCV 96.3, MCH 29.9, MCHC 31.1 L, RDW 13.9, Plt Count 177, MPV 9.4, Neut % (Auto) 50.0, Lymph % (Auto) 38.8, [place] % (Auto) 6.5, Eos % (Auto) 4.0, Baso % (Auto) 0.7, Neut # (Auto) 2.5, Lymph # (Auto) 1.9, [place] # (Auto) 0.3, Eos # (Auto) 0.2, Baso # (Auto) 0.0 12/13/19 08:06: Sodium 142, Potassium 3.7, Chloride 106, Carbon Dioxide 32 H, Anion Gap 7.7, BUN 18 H, Creatinine 0.80, Estimated Creat Clear 51, Estimated GFR 69, Est GFR ( Amer) 84, Glucose 83, Calcium 8.6 I & O for Last 24 hours: Intake & Output 12/10/19 12/11/19 12/12/19 12/13/19 11:59 11:59 11:59 11:59 Intake Total 925 / 925 1807 / 1807 3828 / 3828 Output Total 250 / 250 1100 / 1100 750 / 750 Balance 675 / 675 707 / 707 3078 / 3078 Weight 150 lb 5 oz 154 lb 5 oz 157 lb 4 oz Microbiology Reports for the Last 24 Hours: Microbiology 12/10/19 20:21 Blood Blood Culture - Preliminary NO GROWTH AFTER 48 HOURS 12/10/19 20:21 Blood Blood Culture - Preliminary NO GROWTH AFTER 48 HOURS 12/10/19 20:01 Throat Group A Streptococcus Screen (RAE) - Final Negative for Group A Streptococcus. - Constitutional no acute distress - *Routine HEENT Exam Head: Present: normocephalic Eye: Present: PERRL ENT: Present: mucous membranes moist - *Routine Neck Exam Present: supple. Absent: lymphadenopathy - *Routine Respiratory Exam Present: CTA bilaterally - *Routine Cardiovascular Exam Present: RRR - *Routine Abdominal Exam Present: soft, normoactive bowel sounds. Absent: tenderness - *Routine Extremities Exam Absent: cyanosis, clubbing, edema - *Routine Skin Exam Present: warm. Absent: rash - *Routine Neurological Exam Present: alert, oriented X3 - Routine Psychiatric Exam Present: normal affect Assessment and Plan (1) Community acquired pneumonia Current visit: Yes Status: Acute Qualifiers: Laterality: right Lung location: lower lobe of lung Qualified Code(s): J18.9 - Pneumonia, unspecified organism Category: Medical Code(s): J18.9 - Pneumonia, unspecified organism (2) Chronic pain Current visit: Yes Status: Chronic Qualifiers: Chronic pain type: chronic pain syndrome Qualified Code(s): G89.4 - Chronic pain syndrome Category: Medical Code(s): G89.29 - Other chronic pain - Assessment and plan all Dx Assessment and Plan for all problems:: rounded with dr villafana all orders per ledy waiting on ltc placement
--- NOTE | 2019-12-14 09:14 | Progress Note ---
Internal Medicine - PN: Subj *Date: 12/14/19 *Time: 09:11 Interval history: pt doing better in chair - eating and pending transfer to [facility] Exam Vital signs and Labs for Last 24 Hours: Temp Pulse Resp BP Pulse Ox 97.8 F 60 16 135/78 94 L 12/14/19 04:00 12/14/19 06:49 12/14/19 04:00 12/14/19 04:00 12/14/19 06:49 I & O for Last 24 hours: Intake & Output 12/11/19 12/12/19 12/13/19 12/14/19 11:59 11:59 11:59 11:59 Intake Total 925 / 925 1807 / 1807 3978 / 3978 3357 / 3357 Output Total 250 / 250 1100 / 1100 1150 / 1150 1400 / 1400 Balance 675 / 675 707 / 707 2828 / 2828 1957 / 195 Weight 150 lb 5 oz 154 lb 5 oz 157 lb 4 oz 158 lb 6 oz Microbiology Reports for the Last 24 Hours: Microbiology 12/13/19 09:43 Sputum - Expectorated Sputum Gram Stain - Final - Constitutional no acute distress - *Routine HEENT Exam Head: Present: normocephalic Eye: Present: EOMI, PERRL ENT: Present: mucous membranes dry - *Routine Neck Exam Present: supple - *Routine Respiratory Exam Present: decreased breath sounds - *Routine Cardiovascular Exam Present: RRR, murmur - *Routine Abdominal Exam Present: soft - *Routine Extremities Exam Absent: calf tenderness - *Routine Skin Exam Present: intact - *Routine Neurological Exam Present: alert, CN II-XII intact - Routine Psychiatric Exam Present: normal affect Assessment and Plan (1) Community acquired pneumonia Current visit: Yes Status: Acute Qualifiers: Laterality: right Lung location: lower lobe of lung Qualified Code(s): J18.9 - Pneumonia, unspecified organism Category: Medical Code(s): J18.9 - Pneumonia, unspecified organism (2) Chronic pain Current visit: Yes Status: Chronic Qualifiers: Chronic pain type: chronic pain syndrome Qualified Code(s): G89.4 - Chronic pain syndrome Category: Medical Code(s): G89.29 - Other chronic pain
--- NOTE | 2019-12-14 11:00 | Progress Note ---
Internal Medicine - PN: Subj *Date: 12/14/19 *Time: 11:00 Exam Vital signs and Labs for Last 24 Hours: Temp Pulse Resp BP Pulse Ox 98.2 F 94 H 18 109/54 L 91 L 12/14/19 08:00 12/14/19 08:00 12/14/19 08:00 12/14/19 08:00 12/14/19 08:00 I & O for Last 24 hours: Intake & Output 12/11/19 12/12/19 12/13/19 12/14/19 23:59 23:59 23:59 23:59 Intake Total 2065 / 2065 3655 / 3655 2670 / 2670 2157 / 2157 Output Total 450 / 1350 1650 / 1650 1250 / 1250 550 / 550 Balance 1615 / 715 2004 1420 / 1420 1607 / 1607 Weight 68 kg 69.995 kg 71.327 kg 71.838 kg Microbiology Reports for the Last 24 Hours: Microbiology 12/13/19 09:43 Sputum - Expectorated Sputum Gram Stain - Final Assessment and Plan (1) Community acquired pneumonia Current visit: Yes Status: Acute Qualifiers: Laterality: right Lung location: lower lobe of lung Qualified Code(s): J18.9 - Pneumonia, unspecified organism Category: Medical Code(s): J18.9 - Pneumonia, unspecified organism (2) Chronic pain Current visit: Yes Status: Chronic Qualifiers: Chronic pain type: chronic pain syndrome Qualified Code(s): G89.4 - Chronic pain syndrome Category: Medical Code(s): G89.29 - Other chronic pain The patient's infection will respond to the chosen ABx?: Yes Is the patient receiving the right drug, dose, and route?: Yes Could a more targeted ABx be ordered?: No
--- NOTE | 2019-12-15 08:58 | Progress Note ---
Internal Medicine - PN: Subj *Date: 12/16/19 *Time: 07:34 Interval history: doing better - eating in chair Exam Vital signs and Labs for Last 24 Hours: Temp Pulse Resp BP Pulse Ox 98.0 F 72 17 133/77 93 L 12/15/19 08:00 12/15/19 08:00 12/15/19 08:00 12/15/19 08:00 12/15/19 08:00 I & O for Last 24 hours: Intake & Output 12/12/19 12/13/19 12/14/19 12/15/19 11:59 11:59 11:59 11:59 Intake Total 1807 / 1807 3978 / 3978 3987 / 3987 2617 / 2617 Output Total 1100 / 1100 1150 / 1150 2200 / 2200 1200 / 1200 Balance 707 / 707 2828 / 2828 1787 / 1787 1417 / 1417 Weight 154 lb 5 oz 157 lb 4 oz 158 lb 6 oz 156 lb 1 oz Microbiology Reports for the Last 24 Hours: Microbiology 12/13/19 09:43 Sputum - Expectorated Sputum Gram Stain - Final 12/13/19 09:43 Sputum - Expectorated Sputum Sputum Culture - Preliminary - Constitutional no acute distress - *Routine HEENT Exam Head: Present: normocephalic Eye: Present: EOMI, PERRL ENT: Present: mucous membranes dry - *Routine Neck Exam Present: supple. Absent: JVD - *Routine Respiratory Exam Present: CTA bilaterally - *Routine Cardiovascular Exam Present: RRR, murmur - *Routine Abdominal Exam Present: soft - *Routine Extremities Exam Absent: edema - *Routine Skin Exam Present: intact - *Routine Neurological Exam Present: alert, CN II-XII intact - Routine Psychiatric Exam Present: normal affect Assessment and Plan (1) Community acquired pneumonia Current visit: Yes Status: Acute Qualifiers: Laterality: right Lung location: lower lobe of lung Qualified Code(s): J18.9 - Pneumonia, unspecified organism Category: Medical Code(s): J18.9 - Pneumonia, unspecified organism (2) Chronic pain Current visit: Yes Status: Chronic Qualifiers: Chronic pain type: chronic pain syndrome Qualified Code(s): G89.4 - Chronic pain syndrome Category: Medical Code(s): G89.29 - Other chronic pain (3) Obesity (BMI 30.0-34.9) Current visit: Yes Status: Acute Category: Medical Code(s): E66.9 - Obesity, unspecified
[2019-12-16 06:15] LABS: Anion Gap 8.5 mEq/L (5-15); Calcium 8.6 mg/dl (8.4-10.2)
--- NOTE | 2019-12-16 08:36 | Progress Note ---
Internal Medicine - PN: Subj *Date: 12/16/19 *Time: 08:34 Interval history: Patient sitting up in bed states she is feeling well. Exam Vital signs and Labs for Last 24 Hours: Temp Pulse Resp BP Pulse Ox 97.7 F 60 16 164/73 H 92 L 12/16/19 04:00 12/16/19 06:23 12/16/19 04:00 12/16/19 04:00 12/16/19 06:23 Laboratory Results - last 24 hr 12/16/19 05:55: Sodium 141, Potassium 3.5, Chloride 105, Carbon Dioxide 31 H, Anion Gap 8.5, BUN 15, Creatinine 0.80, Estimated Creat Clear 51, Estimated GFR 69, Est GFR ( Amer) 84, Glucose 83, Calcium 8.6 I & O for Last 24 hours: Intake & Output 12/13/19 12/14/19 12/15/19 12/16/19 11:59 11:59 11:59 11:59 Intake Total 3978 / 3978 3987 / 3987 2617 / 2617 2951 / 2951 Output Total 1150 / 1150 2200 / 2200 1200 / 1200 2250 / 2250 Balance 2828 / 2828 1787 / 1787 1417 / 1417 701 / 701 Weight 157 lb 4 oz 158 lb 6 oz 156 lb 1 oz 157 lb 9 oz Microbiology Reports for the Last 24 Hours: Microbiology 12/13/19 09:43 Sputum - Expectorated Sputum Gram Stain - Final 12/13/19 09:43 Sputum - Expectorated Sputum Sputum Culture - Preliminary Yeast 12/10/19 20:21 Blood Blood Culture - Final NO GROWTH AFTER 5 DAYS 12/10/19 20:21 Blood Blood Culture - Final NO GROWTH AFTER 5 DAYS - Constitutional no acute distress, chronically ill appearing - *Routine HEENT Exam Head: Present: normocephalic Eye: Present: PERRL ENT: Present: mucous membranes moist - *Routine Neck Exam Present: supple. Absent: lymphadenopathy - *Routine Respiratory Exam Present: CTA bilaterally - *Routine Cardiovascular Exam Present: RRR - *Routine Abdominal Exam Present: soft, normoactive bowel sounds. Absent: tenderness - *Routine Extremities Exam Absent: cyanosis, clubbing, edema - *Routine Skin Exam Present: warm. Absent: rash - *Routine Neurological Exam Present: alert, oriented X3 - Routine Psychiatric Exam Present: normal affect Assessment and Plan (1) Community acquired pneumonia Current visit: Yes Status: Acute Qualifiers: Laterality: right Lung location: lower lobe of lung Qualified Code(s): J18.9 - Pneumonia, unspecified organism Category: Medical Code(s): J18.9 - Pneumonia, unspecified organism (2) Chronic pain Current visit: Yes Status: Chronic Qualifiers: Chronic pain type: chronic pain syndrome Qualified Code(s): G89.4 - Chronic pain syndrome Category: Medical Code(s): G89.29 - Other chronic pain (3) Obesity (BMI 30.0-34.9) Current visit: Yes Status: Acute Category: Medical Code(s): E66.9 - Obesity, unspecified
--- NOTE | 2019-12-16 13:47 | Discharge Summary ---
General - General Admission date:: 12/10/19 Discharge date: 12/16/19 HPI HPI: 79-year-old female presented to the ER with complaints of shortness of breath, wheezing, fever and weakness. Patient had been seen at [facility] and diagnosed with pneumonia and placed on antibiotics but has had no improvement. Patient admitted for right lower lobe pneumonia failed outpatient therapy. Patient will be placed on IV antibiotics and oxygen. Pulse ox is 92 to 93% on room air patient has an increased work of breathing. Patient is asking for physical therapy due to the weakness. Hospital Course Hospital Course: 12/09-chest x ray-IMPRESSION: Right lower lobe pneumonia with chronic changes on the left 12/11-chest x ray-IMPRESSION: Overall no change in the right lower lobe pneumonia with chronic changes as well venous doppler- Conclusion No evidence of DVT or superficial thrombophlebitis in the veins scanned of the right lower extremity. No evidence of DVT or superficial thrombophlebitis in the veins scanned of the left lower extremity. Laboratory Tests 12/10/19 12/10/19 12/10/19 20:01 20:21 20:21 WBC 5.3 RBC 4.94 Hgb 15.2 Hct 46.3 MCV 93.7 MCH 30.8 MCHC 32.9 RDW 13.5 Plt Count 169 MPV 8.7 Neut % (Auto) 46.8 Lymph % (Auto) 42.4 [place] % (Auto) 5.4 Eos % (Auto) 4.6 Baso % (Auto) 0.9 Neut # (Auto) 2.5 Lymph # (Auto) 2.3 [place] # (Auto) 0.3 Eos # (Auto) 0.2 Baso # (Auto) 0.1 Sodium 140 Potassium 4.1 Chloride 101 Carbon Dioxide 31 H Anion Gap 12.1 BUN 13 Creatinine 0.70 Estimated Creat Clear 52 Estimated GFR 81 Est GFR ( Amer) 98 Glucose 140 H Lactate Calcium 9.3 Magnesium Total Bilirubin 0.4 AST 30 ALT 18 Alkaline Phosphatase 82 Troponin I < 0.01 Total Protein 7.6 Albumin 4.3 Globulin 3.3 H Albumin/Globulin Ratio 1.3 Influenza Type A Ag Influenza Type B Ag Group A Strep Rapid Negative 12/10/19 12/10/19 12/10/19 20:21 20:21 23:21 WBC RBC Hgb Hct MCV MCH MCHC RDW Plt Count MPV Neut % (Auto) Lymph % (Auto) [place] % (Auto) Eos % (Auto) Baso % (Auto) Neut # (Auto) Lymph # (Auto) [place] # (Auto) Eos # (Auto) Baso # (Auto) Sodium Potassium Chloride Carbon Dioxide Anion Gap BUN Creatinine Estimated Creat Clear Estimated GFR Est GFR ( Amer) Glucose Lactate 2.3 H Calcium Magnesium Total Bilirubin AST ALT Alkaline Phosphatase Troponin I < 0.01 Total Protein Albumin Globulin Albumin/Globulin Ratio Influenza Type A Ag Negative Influenza Type B Ag Negative Group A Strep Rapid 12/11/19 12/11/19 12/11/19 00:30 02:30 06:02 WBC 3.0 L D RBC 4.35 Hgb 13.0 D Hct 40.4 MCV 92.7 MCH 29.8 MCHC 32.2 RDW 13.4 Plt Count 167 MPV 9.0 Neut % (Auto) 68.5 Lymph % (Auto) 29.0 [place] % (Auto) 1.4 L Eos % (Auto) 0.7 Baso % (Auto) 0.4 Neut # (Auto) 2.0 Lymph # (Auto) 0.9 [place] # (Auto) 0.0 L Eos # (Auto) 0.0 Baso # (Auto) 0.0 Sodium Potassium Chloride Carbon Dioxide Anion Gap BUN Creatinine Estimated Creat Clear Estimated GFR Est GFR ( Amer) Glucose Lactate 1.9 Calcium Magnesium Total Bilirubin AST ALT Alkaline Phosphatase Troponin I < 0.01 Total Protein Albumin Globulin Albumin/Globulin Ratio Influenza Type A Ag Influenza Type B Ag Group A Strep Rapid 12/11/19 12/12/19 12/12/19 06:02 06:35 06:35 WBC 6.4 D RBC 4.02 L Hgb 12.2 Hct 38.5 MCV 95.7 MCH 30.3 MCHC 31.7 L RDW 13.8 Plt Count 173 MPV 9.4 Neut % (Auto) 66.4 Lymph % (Auto) 27.5 [place] % (Auto) 5.4 Eos % (Auto) 0.4 Baso % (Auto) 0.3 Neut # (Auto) 4.3 Lymph # (Auto) 1.8 [place] # (Auto) 0.4 Eos # (Auto) 0.0 Baso # (Auto) 0.0 Sodium 141 143 Potassium 4.0 3.6 Chloride 106 109 H Carbon Dioxide 28 29 Anion Gap 11.0 8.6 BUN 16 19 H Creatinine 0.70 0.80 Estimated Creat Clear 49 50 Estimated GFR 81 69 Est GFR ( Amer) 98 84 Glucose 143 H 95 Lactate Calcium 9.0 8.7 Magnesium 1.9 Total Bilirubin AST ALT Alkaline Phosphatase Troponin I Total Protein Albumin Globulin Albumin/Globulin Ratio Influenza Type A Ag Influenza Type B Ag Group A Strep Rapid 12/13/19 12/13/19 12/13/19 06:26 08:06 08:06 WBC 5.0 RBC 4.28 Hgb 12.8 Hct 41.2 MCV 96.3 MCH 29.9 MCHC 31.1 L RDW 13.9 Plt Count 177 MPV 9.4 Neut % (Auto) 50.0 Lymph % (Auto) 38.8 [place] % (Auto) 6.5 Eos % (Auto) 4.0 Baso % (Auto) 0.7 Neut # (Auto) 2.5 Lymph # (Auto) 1.9 [place] # (Auto) 0.3 Eos # (Auto) 0.2 Baso # (Auto) 0.0 Sodium 142 142 Potassium 3.8 3.7 Chloride 106 106 Carbon Dioxide 28 32 H Anion Gap 11.8 7.7 BUN 18 H 18 H Creatinine 0.80 0.80 Estimated Creat Clear 51 51 Estimated GFR 69 69 Est GFR ( Amer) 84 84 Glucose 87 83 Lactate Calcium 8.2 L 8.6 Magnesium Total Bilirubin AST ALT Alkaline Phosphatase Troponin I Total Protein Albumin Globulin Albumin/Globulin Ratio Influenza Type A Ag Influenza Type B Ag Group A Strep Rapid 12/16/19 05:55 WBC RBC Hgb Hct MCV MCH MCHC RDW Plt Count MPV Neut % (Auto) Lymph % (Auto) [place] % (Auto) Eos % (Auto) Baso % (Auto) Neut # (Auto) Lymph # (Auto) [place] # (Auto) Eos # (Auto) Baso # (Auto) Sodium 141 Potassium 3.5 Chloride 105 Carbon Dioxide 31 H Anion Gap 8.5 BUN 15 Creatinine 0.80 Estimated Creat Clear 51 Estimated GFR 69 Est GFR ( Amer) 84 Glucose 83 Lactate Calcium 8.6 Magnesium Total Bilirubin AST ALT Alkaline Phosphatase Troponin I Total Protein Albumin Globulin Albumin/Globulin Ratio Influenza Type A Ag Influenza Type B Ag Group A Strep Rapid sputum positive for yeast- will continue diflucan for 5 days. pt will be transferred to [facility] for rehab pt has had iv antibiotics and has been doing well. Pt has hx of falls. Objective Vital signs: Temp Pulse Resp BP Pulse Ox 98.8 F 75 16 151/95 H 92 L 12/16/19 08:00 12/16/19 08:00 12/16/19 08:00 12/16/19 08:00 12/16/19 08:00 no acute distress - *Routine HEENT Exam Head: Present: normocephalic Eye: Present: PERRL ENT: Present: mucous membranes moist - *Routine Neck Exam Present: supple - *Routine Respiratory Exam Present: CTA bilaterally - *Routine Cardiovascular Exam Present: RRR - *Routine Abdominal Exam Present: soft, normoactive bowel sounds. Absent: tenderness - *Routine Extremities Exam Absent: cyanosis, clubbing, edema Comments: hammer toes - *Routine Skin Exam Present: warm. Absent: rash - *Routine Neurological Exam Present: alert, oriented X3 - Routine Psychiatric Exam Present: normal affect Results Labs on day of discharge: Labs from last 24 hours 12/16/19 05:55 Sodium 141 Potassium 3.5 Chloride 105 Carbon Dioxide 31 H Anion Gap 8.5 BUN 15 Creatinine 0.80 Estimated Creat Clear 51 Estimated GFR 69 Est GFR ( Amer) 84 Glucose 83 Calcium 8.6 Preliminary micro results at discharge 12/13/19 09:43 Sputum Culture - Preliminary Sputum - Expectorated Sputum Yeast - Additional Comments rounded with dr villafana all orders per dr villafana DS: Diagnosis - Discharge Diagnosis (1) Community acquired pneumonia Status: Acute (2) Chronic pain Status: Chronic (3) Obesity (BMI 30.0-34.9) Status: Acute (4) Infection due to yeast Status: Acute Discharge Plan - Patient Discharge Instructions ACTIVITY: Continue current activity DIET: continue same diet Patient Instructions: Getting to the Heart of a Healthful Diet: Sodium, DI for Pneumonia -- Adult, DI for Chronic Pain -- Adult, Low-Sodium Diet - Follow up Plan Follow up with: Seymour Salinas APRN [Advanced Practice Nurse] - Disposition: Xfer [facility] Home Medications: Home Medications Medication Instructions Recorded Confirmed Type Pregabalin [Lyrica] 150 mg PO TID 08/11/19 12/11/19 History hydroxyzine HCl 25 mg tablet 25 mg PO QID PRN #90 tab 09/05/19 12/10/19 Rx Pregabalin 100 mg PO HS 09/27/19 12/11/19 History carvedilol 6.25 mg tablet 6.25 mg PO BID #60 tab 11/05/19 12/11/19 Rx montelukast 10 mg tablet 10 mg PO HS #90 tab 11/05/19 12/11/19 Rx atorvastatin 20 mg tablet 20 mg PO HS #90 tab 11/06/19 12/11/19 Rx Azithromycin [Z-Johnny 250mg Tab*] 250 mg PO DIRECTED 12/10/19 12/11/19 History Ipratropium/Albuterol Sulfate 3 ml IH Q6HP PRN 12/11/19 12/11/19 History [Duoneb 3mL neb] Levothyroxine Sodium 88 mcg PO DAILY 12/11/19 12/11/19 History [Levothyroxine 88mcg (0.088mg) Tab] levETIRAcetam [Levetiracetam] 500 mg PO BID 12/11/19 12/11/19 History Fluconazole [Diflucan 200mg tablet] 200 mg PO DAILY 6 Days #6 tab 12/16/19 Rx Prescriptions/Medication Reconciliation: New Fluconazole [Diflucan 200mg tablet] 200 mg PO DAILY 6 Days #6 tab Continued hydroxyzine HCl 25 mg tablet 25 mg PO QID PRN #90 tab PRN Reason: nausea and vomiting carvedilol 6.25 mg tablet 6.25 mg PO BID #60 tab atorvastatin 20 mg tablet 20 mg PO HS #90 tab montelukast 10 mg tablet 10 mg PO HS #90 tab Pregabalin [Lyrica] 150 mg PO TID Pregabalin 100 mg PO HS Levothyroxine Sodium [Levothyroxine 88mcg (0.088mg) Tab] 88 mcg PO DAILY levETIRAcetam [Levetiracetam] 500 mg PO BID Ipratropium/Albuterol Sulfate [Duoneb 3mL neb] 3 ml IH Q6HP PRN PRN Reason: SHORTNESS OF BREATH Discontinued Azithromycin [Z-Johnny 250mg Tab*] 250 mg PO DIRECTED - Problem Reconciliation Problems Reviewed?: Yes
== END 2019-12-16 14:55 ==
LOC: 2ND 19:59 → ER 19:59 → 2ND 21:52
PROVIDERS: ADMIT Emergency Medicine; ATTEND Emergency Medicine
CPT/HCPCS: 36415; 71010; 71020; 71045; 71046; 80048; 80053; 83605; 83735; 84484; 85025; 87040; 87070; 87205; 87275; 87276; 87430; 93005; 93970; 94640; 94761; 96365; 96375; 97110; 97162; 97530; 99284; 99285; G0378; J1956; J2543

== ENCOUNTER 2019-12-31 23:01 | Emergency (ER) | payer MEDICARE, MEDICAID, SELFPAY ==
--- NOTE | 2019-12-31 22:48 | ECG_ITS ---
APPROVED REPORT Exam: Resting ECG HR:62 bpm ECG Measurements Heart Rate 62 AXES QRSd 82 QRS 14 QT 434 T 43 QTc 440 <Conclusion> Junctional rhythm Nonspecific ST abnormality Abnormal ECG Electronically signed by : Anirudh Bear, 01/03/2020 08:07:18
[2019-12-31 22:51] VITALS: BP 156/91; PULSE 74; RESP 18; TEMP 36.7; O2SAT 100; BMI 30.4
--- NOTE | 2019-12-31 22:59 | CT_ITS ---
PROCEDURE: CT HEAD/BRAIN WO CON CLINICAL INDICATION: difficult to rouse at longterm Altered mental status, altered level consciousness, confusion, disorientation COMPARISON: CT HEAD/BRAIN WO CON from 05/03/2019 TECHNIQUE: Axial images obtained. All CT scans at the facility use one or more dose reduction, viz: automated exposure control, ma/kV adjustment per patient size (including targeted exams where dose is matched to indication, i.e. head), or iterative reconstruction technique. FINDINGS: No midline shift, mass effect, intracranial hemorrhage, hydrocephalus, or extra-axial fluid collection is evident. There is generalized atrophy with hypoattenuation of the periventricular white matter consistent with microangiopathic changes. 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 Previously noted right basal ganglia hemorrhage has resolved the calvarium has an unremarkable appearance. No mastoid effusion. No sinus air-fluid level. IMPRESSION: No acute intracranial finding Dictated by: Contreras Diop MD 01/01/2020 06:03 Electronically signed by Contreras Diop MD in [place] 01/01/2020 06:03
--- NOTE | 2019-12-31 23:00 | XR_ITS ---
PROCEDURE: XR CHEST PORTABLE CLINICAL HISTORY: chest tightness COMPARISON: XR CHEST PORTABLE from 12/10/2019 XR CHEST 2V from 12/12/2019 CT CHEST WO CON from 12/20/2019 XR CHEST AP from 12/20/2019 FINDINGS: There are low lung volumes in the study is under penetrated. Chronic interstitial changes are present as before. No obvious lobar consolidation or collapse. Patchy infiltrates cannot be excluded based on this technique. Consider follow-up upright PA and lateral chest for further evaluation. No acute bony abnormalities. IMPRESSION: Limited exam with chronic interstitial changes. Consider follow-up upright PA and lateral chest for further evaluation. Dictated by: Contreras Diop MD 01/01/2020 05:41 Electronically signed by Contreras Diop MD in [place] 01/01/2020 05:41
[2019-12-31 23:13] LABS: Microscopic, Urine URINE MICROSCOPIC (MICROSCOPIC)
[2019-12-31 23:14] LABS: Basophils % 0.8 % (0.1-2.0); Eosinophils # 0.3 K/mm3 (0.0-0.4); Eosinophils % 5.9 % (0.1-12.0); Hematocrit 43.4 % (37.0-47.0); Hemoglobin 13.9 g/dL (12.2-16.2); Lymphocytes # 2.7 K/mm3 (0.7-4.5); Lymphocytes % 53.5 % (10-50); Mean Corpuscular HGB Conc 31.9 g/dL (31.8-35.4); Mean Corpuscular Hemoglobin 30.2 pg (27.0-31.2); Mean Corpuscular Volume 94.6 fl (81-99); Mean Platelet Volume 8.5 fl (7.4-10.4); Monocytes # 0.3 K/mm3 (0.1-1.0); Monocytes % 6.8 % (1.7-9.3); Neutrophils # 1.6 K/mm3 (1.8-7.8); Platelet Count 205 K/mm3 (142-424); Red Blood Count 4.59 M/mm3 (4.20-5.40); Red Cell Distribution Width 13.7 % (11.5-17.5)
[2019-12-31 23:15] LABS: Appearance,Urine CLEAR (Clear); Bilirubin,Urine Negative (Negative); Blood, Urine Negative (Negative); Color,Urine YELLOW (Yellow); Glucose,Urine (UA) Negative (Negative); Ketones,Urine Negative (Negative); Leukocyte Esterase,Urine Negative (Negative); Nitrate,Urine Negative (Negative); Protein,Urine Negative (Negative); Specific Gravity, Urine 1.015 (1.005-1.030); Urobilinogen,Urine 0.2 EU/dl (0.2)
[2019-12-31 23:17] LABS: MANUAL DIFFERENTIAL MANUAL DIFFERENTIAL (MANUAL DIFF)
[2019-12-31 23:18] LABS: Chloride 100 mmol/L (98-107); Potassium 4.1 mmoL/L (3.5-5.1); Sodium 141 mmol/L (136-145)
[2019-12-31 23:20] LABS: Bacteria,Urine Trace /lpf; Squamous Epithelial Cell,Urine Occasional #/hpf (0-5); WBC,Urine Occasional #/hpf (0-3)
[2019-12-31 23:20] LABS: Blood Urea Nitrogen 18 mg/dl (7-17); Creatinine Clearance Estimated 51 mL/min (50-200); Estimated Glomerular Filt Rate 96 ml/min (>60); GFR (African American) 117 ML/MIN (>60)
[2019-12-31 23:21] LABS: Alanine Aminotransferase 12 U/L (12-78); Albumin Level 4.1 g/dl (3.5-5.0); Albumin/Globulin Ratio 1.4 (1.1-1.8); Alkaline Phosphatase 73 U/L (38-126); Anion Gap 9.1 mEq/L (5-15); Aspartate Amino Transferase 27 U/L (14-36); Bilirubin,Total 0.2 mg/dl (0.2-1.3); Calcium 9.5 mg/dl (8.4-10.2); Carbon Dioxide 36 mmol/L (22.0-30.0); Globulin 2.9 g/dL (1.3-3.2); Glucose 94 mg/dl (74-100)
[2019-12-31 23:35] VITALS: BP 154/79; PULSE 66; RESP 18; O2SAT 99
[2019-12-31 23:43] LABS: Troponin I < 0.01 ng/ml (0.00-0.034)
[2019-12-31 23:50] LABS: Eosinophils % 2 % (0-3); Lymphocytes % 63 % (10-50); Monocytes % 4 % (2-9); Neutrophils % 31 % (42-76); Platelet Estimate Normal; Total Cells Counted 100
[2019-12-31 23:51] LABS: Stomatocytes 1+
[2020-01-01 00:12] VITALS: BP 141/76; PULSE 59; RESP 17; TEMP 36.9; O2SAT 98
--- NOTE | 2020-01-01 00:18 | [facility].EDCP ---
ED Disposition Clinical Impression: Chest pain Qualifiers: Chest pain type: unspecified Qualified Code(s): R07.9 - Chest pain, unspecified Disposition: Home, Self-Care Condition on Discharge: Good Instructions: DI for Atypical Chest Pain Additional Instructions: see pcp for follow up Referrals: Provider,John, [Primary Care Provider] - - Critical Care Critical Care Time: No Attestation: On 12/31/19, the high probability of a clinically significant, sudden or life threatening deterioration of the following system(s) required my full and direct attention, intervention and personal management. The time I documented below is in addition to time spent performing reported procedures but includes the following listed in this critical care notation. Medical Decision Making - Medical Records Medical records reviewed: Yes: I reviewed the patient's medical records. - [place] Inquiry Pt receiving controlled substance: No Vital Signs: 12/31/19 22:51 12/31/19 23:35 01/01/20 00:12 Temperature 98.1 F 98.4 F Temperature Source Oral Rectal Pulse Rate Pulse Rate [Right Brachial] 74 66 59 L Respiratory Rate 18 18 17 Blood Pressure Blood Pressure [Right Arm] 156/91 H 154/79 H 141/76 H Blood Pressure Mean [Right Arm] 112 104 97 Blood Pressure Source Blood Pressure Source [Right Arm] Automatic Cuff Automatic Cuff Automatic Cuff Blood Pressure Position Blood Pressure Position [Right Arm] Sitting Sitting Sitting 02 Sat by Pulse Oximetry 100 99 98 Oxygen Delivery Method Room Air Room Air Room Air 01/01/20 00:40 01/01/20 03:12 Temperature 97.7 F Temperature Source Oral Pulse Rate 58 L Pulse Rate [Right Brachial] 61 Respiratory Rate 16 16 Blood Pressure 101/57 L Blood Pressure [Right Arm] 155/83 H Blood Pressure Mean [Right Arm] 107 Blood Pressure Source Automatic Cuff Blood Pressure Source [Right Arm] Blood Pressure Position Sitting Blood Pressure Position [Right Arm] 02 Sat by Pulse Oximetry 97 Oxygen Delivery Method Room Air Room Air - Lab Data Lab results reviewed: Yes: I reviewed the patient's lab results. Lab Results 12/31/19 23:05: WBC 5.0, RBC 4.59, Hgb 13.9, Hct 43.4, MCV 94.6, MCH 30.2, MCHC 31.9, RDW 13.7, Plt Count 205, MPV 8.5, Neut % (Auto) 33.0 L, Lymph % (Auto) 53.5 H, [place] % (Auto) 6.8, Eos % (Auto) 5.9, Baso % (Auto) 0.8, Neut # (Auto) 1.6 L, Lymph # (Auto) 2.7, [place] # (Auto) 0.3, Eos # (Auto) 0.3, Baso # (Auto) 0.0, Total Counted 100, Neutrophils % (Manual) 31 L, Lymphocytes % (Manual) 63 H, Monocytes % (Manual) 4, Eosinophils % (Manual) 2, Platelet Estimate Normal, Stomatocytes 1+ 12/31/19 23:05: Sodium 141, Potassium 4.1, Chloride 100, Carbon Dioxide 36 H, Anion Gap 9.1, BUN 18 H, Creatinine 0.60, Estimated Creat Clear 51, Estimated GFR 96, Est GFR ( Amer) 117, Glucose 94, Calcium 9.5, Total Bilirubin 0.2, AST 27, ALT 12, Alkaline Phosphatase 73, Troponin I < 0.01, Total Protein 7.0, Albumin 4.1, Globulin 2.9, Albumin/Globulin Ratio 1.4 12/31/19 23:09: Urine Color Yellow, Urine Appearance Clear, Urine pH 6.0, Ur Specific [place] 1.015, Urine Protein Negative, Urine Glucose (UA) Negative, Urine Ketones Negative, Urine Blood Negative, Urine Nitrate Negative, Urine Bilirubin Negative, Urine Urobilinogen 0.2, Ur Leukocyte Esterase Negative, Urine WBC Occasional, Ur Squamous Epith Cells Occasional, Urine Bacteria Trace 12/31/19 23:50: TSH 7.08 H, Free T4 Index 2.0 L, Thyroxine (T4) 6.0, T3 Uptake 33 01/01/20 01:50: Troponin I < 0.01 Result diagrams: 12/31/19 23:05 12/31/19 23:05 Orders (Tests/Meds): ED MEDICATIONS Generic Name Dose Route Start Last Admin Trade Name Freq PRN Reason Stop Dose Admin Sodium Chloride 1,000 mls @ 999 mls/hr 12/31/19 23:00 12/31/19 23:19 Sod Chlor 0.9% 1000ml Bag IV 01/01/20 00:00 999 mls/hr .[id number] OWEN Administration ORDERS Category Date Time Status Levetiracetam (Keppra) Stat Lab 12/31/19 23:50 Received -
[2020-01-01 00:32] LABS: Triiodothryronine (T3) Uptake 33 % (23.5-40.5)
[2020-01-01 00:40] VITALS: BP 155/83; PULSE 61; RESP 16; O2SAT 97
--- NOTE | 2020-01-01 00:40 | PC.NURSE ---
Zeyad Montoya updated family at this time.
[2020-01-01 00:45] LABS: Thyroid Stimulating Hormone 7.08 uIU/mL (0.465-4.68)
[2020-01-01 03:12] VITALS: BP 101/57; PULSE 58; RESP 16; TEMP 36.5; O2SAT 98
[2020-01-01 03:18] LABS: Troponin I < 0.01 ng/ml (0.00-0.034)
--- NOTE | 2020-01-01 04:00 | PC.NURSE ---
pt discharged at this time.care given to [facility]
[2020-01-03 11:26] LABS: Levetiracetam (Keppra) 28.2 ug/mL (10.0-40.0)
== END 2020-01-01 04:00 ==
PROVIDERS: Emergency Provider Emergency Medicine
DX: R07.9 Chest pain, unspecified (principal); J44.9 Chronic obstructive pulmonary disease, unspecified; I25.10 Atherosclerotic heart disease of native coronary artery without angina pectoris; I10 Essential (primary) hypertension; E78.5 Hyperlipidemia, unspecified; E03.9 Hypothyroidism, unspecified
CPT/HCPCS: 36415; 70450; 71045; 80053; 80177; 81001; 84436; 84443; 84479; 84484; 85007; 85025; 93005; 96365; 99284

== ENCOUNTER → 2020-02-13 10:02 | Outpatient (CLI) | payer MEDICARE, MEDICAID, SELFPAY ==
--- NOTE | 2020-02-13 10:07 | XR_ITS ---
PROCEDURE: XR KNEE RT 4V CLINICAL INDICATION: knee pain COMPARISON: [id number] KNEE-4 OR 5 VIEWS-RT from 08/18/2015 FINDINGS: Moderate osteoarthritic changes are present involving all 3 compartments greatest at the medial compartment. No acute fracture or dislocation. No lytic or blastic change. Other findings:None. IMPRESSION: Moderate osteoarthritis of all 3 compartments Dictated by: Contreras Diop MD 02/13/2020 13:19 Electronically signed by Contreras Diop MD in [place] 02/13/2020 13:19
== END ==
PROVIDERS: PCP Emergency Medicine; Visit Provider Orthopaedic Surgery
DX: M17.11 Unilateral primary osteoarthritis, right knee (principal)
CPT/HCPCS: 73564

== ENCOUNTER 2020-03-27 09:41 | Emergency (ER) | payer MEDICARE, MEDICAID, SELFPAY ==
[2020-03-27 09:42] VITALS: BP 145/100; PULSE 96; RESP 22; TEMP 36.9; O2SAT 90; BMI 33.2
--- NOTE | 2020-03-27 09:53 | XR_ITS ---
PROCEDURE: XR CHEST PORTABLE CLINICAL HISTORY: soa Shortness of air wheezing COMPARISON: XR CHEST 2V from 12/12/2019 CT CHEST WO CON from 12/20/2019 XR CHEST AP from 12/20/2019 XR CHEST PORTABLE from 12/31/2019 FINDINGS: The cardiomediastinal silhouette and pulmonary vascularity are within normal limits. Chronic pulmonary fibrotic changes are present with scarring in the left lower lobe similar in appearance when compared to 12/31/2019. No lobar consolidation collapse. No acute bony abnormalities. IMPRESSION: Chronic pulmonary fibrotic changes Dictated by: Contreras Diop MD 03/27/2020 11:30 Electronically signed by Contreras Diop MD in [place] 03/27/2020 11:30
--- NOTE | 2020-03-27 10:12 | ECG_ITS ---
APPROVED REPORT Exam: Resting ECG HR:79 bpm ECG Measurements Heart Rate 79 AXES NJ 144 P 51 QRSd 72 QRS 6 QT 396 T 74 QTc 454 <Conclusion> Normal sinus rhythm Nonspecific T wave abnormality Abnormal ECG Electronically signed by : Pardeep Lopez, 03/27/2020 16:21:19
[2020-03-27 10:15] LABS: Microscopic, Urine URINE MICROSCOPIC (MICROSCOPIC)
[2020-03-27 10:15] LABS: Basophils % 0.5 % (0.1-2.0); Eosinophils # 0.1 K/mm3 (0.0-0.4); Hematocrit 44.5 % (37.0-47.0); Lymphocytes # 1.4 K/mm3 (0.7-4.5); Lymphocytes % 31.7 % (10-50); Mean Corpuscular HGB Conc 33.8 g/dL (31.8-35.4); Mean Corpuscular Hemoglobin 31.6 pg (27.0-31.2); Mean Corpuscular Volume 93.6 fl (81-99); Monocytes # 0.2 K/mm3 (0.1-1.0); Neutrophils # 2.7 K/mm3 (1.8-7.8); Neutrophils % 60.7 % (37.0-80.0); Platelet Count 185 K/mm3 (142-424); Red Blood Count 4.76 M/mm3 (4.20-5.40); Red Cell Distribution Width 14.4 % (11.5-17.5); White Blood Count 4.4 K/mm3 (4.8-10.8)
--- NOTE | 2020-03-27 10:16 | PC.NURSE ---
RT notified of ABG, stated they would be down to obtain it shortly
[2020-03-27 10:18] LABS: Appearance,Urine CLEAR (Clear); Bilirubin,Urine Negative (Negative); Blood, Urine Negative (Negative); Color,Urine YELLOW (Yellow); Glucose,Urine (UA) Negative (Negative); Ketones,Urine Negative (Negative); Leukocyte Esterase,Urine Negative (Negative); Nitrate,Urine Negative (Negative); Protein,Urine Negative (Negative); Specific Gravity, Urine 1.025 (1.005-1.030); Urobilinogen,Urine 0.2 EU/dl (0.2)
[2020-03-27 10:20] VITALS: BP 99/59; PULSE 74; RESP 15; O2SAT 91
[2020-03-27 10:26] LABS: Alanine Aminotransferase 18 U/L (12-78); Albumin Level 4.4 g/dl (3.5-5.0); Albumin/Globulin Ratio 1.3 (1.1-1.8); Alkaline Phosphatase 82 U/L (38-126); Anion Gap 12.3 mEq/L (5-15); Aspartate Amino Transferase 44 U/L (14-36); Bilirubin,Total 0.6 mg/dl (0.2-1.3); Blood Urea Nitrogen 20 mg/dl (7-17); Calcium 9.5 mg/dl (8.4-10.2); Carbon Dioxide 30 mmol/L (22.0-30.0); Chloride 100 mmol/L (98-107); Creatinine Clearance Estimated 56 mL/min (50-200); Estimated Glomerular Filt Rate 81 ml/min (>60); GFR (African American) 98 ML/MIN (>60); Globulin 3.4 g/dL (1.3-3.2); Glucose 143 mg/dl (74-100); Potassium 4.3 mmoL/L (3.5-5.1); Sodium 138 mmol/L (136-145); Total Protein,Serum 7.8 g/dl (6.3-8.2)
--- NOTE | 2020-03-27 10:26 | HMH.EDGENADL ---
ED Disposition Clinical Impression: COPD (chronic obstructive pulmonary disease), Sciatica Disposition: Xfer Intermediate Care Fac Condition on Discharge: Good Instructions: AREN for Sciatica Referrals: Seymour Salinas APRN [Primary Care Provider] - Time of Disposition: 12:27 - Critical Care Critical Care Time: No Attestation: On 03/27/20, the high probability of a clinically significant, sudden or life threatening deterioration of the following system(s) required my full and direct attention, intervention and personal management. The time I documented below is in addition to time spent performing reported procedures but includes the following listed in this critical care notation. Medical Decision Making - Medical Records Medical records reviewed: Yes: I reviewed the patient's medical records. - Francisco Inquiry Pt receiving controlled substance: No Vital Signs: 03/27/20 09:42 03/27/20 10:20 03/27/20 10:30 Temperature 98.4 F Temperature Source Oral Pulse Rate [Right] 96 H 74 74 Respiratory Rate 22 15 22 Blood Pressure [Right Arm] 145/100 H 99/59 L 99/60 L Blood Pressure Mean [Right Arm] 115 72 73 Blood Pressure Source [Right Arm] Automatic Cuff Blood Pressure Position [Right Arm] Supine 02 Sat by Pulse Oximetry 90 L 91 L 92 L Oxygen Delivery Method Room Air Room Air Nasal Cannula - Lab Data Lab Results 03/27/20 09:54: Specimen Source Right radial, O2 % 2lpm nc, ABG pH 7.40, ABG pCO2 46.4 H, ABG pO2 67.2 L, ABG HCO3 28.0 H, ABG Total CO2 29.4 H, ABG O2 Saturation 93, ABG Base Excess 3.1 H, Contreras Test Acceptable 03/27/20 10:06: WBC 4.4 L, RBC 4.76, Hgb 15.0, Hct 44.5, MCV 93.6, MCH 31.6 H, MCHC 33.8, RDW 14.4, Plt Count 185, MPV 9.0, Neut % (Auto) 60.7, Lymph % (Auto) 31.7, [place] % (Auto) 5.0, Eos % (Auto) 2.0, Baso % (Auto) 0.5, Neut # (Auto) 2.7, Lymph # (Auto) 1.4, [place] # (Auto) 0.2, Eos # (Auto) 0.1, Baso # (Auto) 0.0 03/27/20 10:06: Sodium 138, Potassium 4.3, Chloride 100, Carbon Dioxide 30, Anion Gap 12.3, BUN 20 H, Creatinine 0.70, Estimated Creat Clear 56, Estimated GFR 81, Est GFR ( Amer) 98, Glucose 143 H, Calcium 9.5, Total Bilirubin 0.6, AST 44 H, ALT 18, Alkaline Phosphatase 82, Troponin I < 0.01, Total Protein 7.8, Albumin 4.4, Globulin 3.4 H, Albumin/Globulin Ratio 1.3 03/27/20 10:06: NT-Pro-B Natriuret Pep 69.1 03/27/20 10:15: Urine Color Yellow, Urine Appearance Clear, Urine pH 6.0, Ur Specific [place] 1.025, Urine Protein Negative, Urine Glucose (UA) Negative, Urine Ketones Negative, Urine Blood Negative, Urine Nitrate Negative, Urine Bilirubin Negative, Urine Urobilinogen 0.2, Ur Leukocyte Esterase Negative, Urine WBC Occasional, Ur Squamous Epith Cells Occasional Result diagrams: 03/27/20 10:06 03/27/20 10:06 Orders (Tests/Meds): ORDERS Category Date Time Status Troponin I Q3H Lab 03/27/20 13:00 Ordered Troponin I Q3H Lab 03/27/20 16:00 Ordered - ECG Data Tracing #1 EKG was reviewed at 1013. Normal ventricular rate of 79 bpm, PA interval 144 ms. Normal QTC. Sinus rhythm with nonspecific changes. - Reevaluation(s) Time: 12:25 Reevaluation #1: On reevaluation, the patient is feeling much better. She is saturating well on her normal home oxygen. Do believe her symptoms are consistent with COPD. Her back pain is concerning for chronic exacerbation with sciatica. Patient is to follow-up with her PCP in 48 hours. Given strict return precautions. Verbalized understanding. Medical Decision Narrative: 79-year-old female presenting with multiple complaints. Patient does have some wheezing on examination, however is saturating well on room air. No evidence of respiratory distress. Work-up initiated. General Adult HPI - General Chief complaint: PAIN Stated complaint: leg spasms Time Seen by Provider: 03/27/20 09:45 Mode of Arrival: EMS Limitations: No Limitations Description of Symptoms (Recalled from ER Triage Doc. by RN): Pt c/o left foot pain
[2020-03-27 10:28] LABS: Squamous Epithelial Cell,Urine Occasional #/hpf (0-5); WBC,Urine Occasional #/hpf (0-3)
[2020-03-27 10:30] VITALS: BP 99/60; PULSE 74; RESP 22; O2SAT 92
[2020-03-27 10:35] LABS: NT Pro Brain Natriuretic Pep. 69.1 pg/mL (0-450)
[2020-03-27 10:41] LABS: Troponin I < 0.01 ng/ml (0.00-0.034)
[2020-03-27 10:48] LABS: ABG Base Excess 3.1 mmol/L (-2.4-2.3); ABG Oxygen Saturation 93 % (90-100); ABG PCO2 46.4 mmhg (35.0-45.0); ABG PO2 67.2 mmhg (80-100); ABG TCO2 29.4 mmhg (23-27)
[2020-03-27 10:49] LABS: Oxygen 2lpm nc %
[2020-03-27 10:50] LABS: Allen's Test Acceptable; Source Right Radial
--- NOTE | 2020-03-27 11:45 | PC.NURSE ---
Pt put on bedpan at this time
[2020-03-27 12:30] VITALS: BP 153/64; PULSE 74; RESP 22; O2SAT 92
[2020-03-27 12:59] VITALS: BP 178/90; PULSE 80; RESP 17; TEMP 36.6; O2SAT 91
== END 2020-03-27 13:16 ==
PROVIDERS: Emergency Provider Emergency Medicine; PCP Nurse Practitioner Family
DX: J44.9 Chronic obstructive pulmonary disease, unspecified (principal); M54.31 Sciatica, right side; M54.32 Sciatica, left side; R73.9 Hyperglycemia, unspecified; E78.5 Hyperlipidemia, unspecified; I10 Essential (primary) hypertension; I50.9 Heart failure, unspecified; Z87.891 Personal history of nicotine dependence
CPT/HCPCS: 71045; 80053; 81001; 82803; 83880; 84484; 85025; 93005; 99284

== ENCOUNTER → 2020-04-16 10:15 | Outpatient (POV) | payer MEDICARE, MEDICAID, SELFPAY ==
[2020-04-16 11:18] VITALS: BP 142/89; PULSE 85; RESP 18; O2SAT 98; BMI 30.8
--- NOTE | 2020-04-16 11:30 | HMH.PAINSOAP ---
[facility] [place] Pain Management SOAP Note Subjective:: Patient is a 79-year-old white female who presents today for follow-up. She has been treated for low back pain with lumbar radiculopathy symptoms. Patient is currently in a rehab facility at [facility]. Patient has been there since December 16. According to the patient and her daughter, the patient is progressively worsening in her ability to perform ADLs. She did, as result, go to the rehab facility for therapy. The patient does report that she is not getting adequate therapy while in the facility. She says that she is not undergoing any type of therapy throughout the day. She says unfortunately, it is due to the pandemic, however, the patient is getting worse since being in the facility. The patient and the daughter are seeking alternative facilities for possible treatment. The patient lived alone prior to going into the facility. She would like to gain ability to stand and walk again so that she can go back to her home. The daughter reports that she is unable to lift the patient for fear that she will hurt her self. Patient rates her pain a 0 out of 10 with sitting, and a 7 out of 10 with standing. She is currently wheelchair-bound. Review of Systems General: No recent weight changes, no fever, no sleep disturbances Respiratory: No cough, no shortness of air, no recurring pulmonary infections Cardiovascular/peripheral vascular: No chest pain, no palpitations, no edema, no shortness of breath Gastrointestinal: No new onset incontinence, normal bowel movements reported Genitourinary: No new onset incontinence Musculoskeletal: Low back pain intermittent leg pain Psychiatric: Normal mood/affect Neurological: [Denies weakness in extremities], [denies balance issues] Objective:: Physical exam General: Alert and oriented x3, no acute distress, pleasant and cooperative, [on room air] Lungs: Respirations even and unlabored, symmetrical chest expansion Eyes: PERRL Musculoskeletal: Flexion and extension of lumbar spine somewhat guarded secondary to pain, deep tendon reflexes normal, strength in upper and lower extremities [5/5], [abnormal gait noted] Neurological: Speech clear, fisher clam equal, no gross sensory deficit Assessment:: Degenerative disc disease lumbar spine with lumbar radiculopathy symptoms, spinal stenosis Plan:: We will schedule the patient for a lumbar epidural steroid injection at L4-L5. Unfortunately the patient is not getting any therapy at the current facility that she is at. The patient and the daughter are currently seeking alternative facilities for therapy. I have advised her to contact the clinic if she has any concerns before next appointment. The patient and I specifically discussed risk factors for COVID19. These risks include, but are not limited to age greater than 60, heart or lung disease, diabetes, immunosuppression, and travel. We also discussed NSAIDs may worsen COVID19 infection or symptoms. Patient should not use NSAIDs to treat COVID19 signs or symptoms. Patient was also informed that any type of corticosteroid of any form (oral or injection) will decrease the patient's immune system response and may increase the likelihood of COVID19 infection [address] symptoms[address] Dr. Chopra has reviewed this note and agrees with this plan of care. This note was dictated using voice recognition software and make contain errors or omissions. [facility] History I have reviewed the patient's past medical history: Yes Medical History: Reports:: Congestive Heart Failure, Chronic Obstructive Pulmonary Disease (COPD), Coronary Artery Disease, Hyperlipidemia, Hypertension, Lung Disease, Palpitations Denies:: Cancer, Diabetes Mellitus Type 1, Diabetes Mellitus Type 2, Internal Pacemaker, MRSA, Seizures *Have you ever received a pneumonia vaccine?: Yes *Have you received a flu vaccine this season?: Yes Other Medical History: Reports: Hypothyroidism, Sinus Problems, Thyroid Disease, Ot
== END ==
PROVIDERS: PCP Nurse Practitioner Family; Visit Provider Clinical Nurse Specialist Family Health
DX: M51.16 Intervertebral disc disorders with radiculopathy, lumbar region (principal); M48.00 Spinal stenosis, site unspecified
CPT/HCPCS: 99212

== ENCOUNTER → 2020-06-26 10:09 | Outpatient (CLI) | payer MEDICARE, MEDICAID, SELFPAY ==
--- NOTE | 2020-06-26 10:13 | CA_ITS ---
APPROVED REPORT EXAM: Comprehensive 2D, Doppler, and color-flow Echocardiogram Blanker Press Operator: Crystal Mcneal RVT Ht: 5 ft 0 in Wt: 178lbs BSA: 1.78 BP: 118/68 mmHg Indications: CARDIOMEGALY,CAD,PHTN,EX SMOKER,HTN,HLD TDS-PT SCANNED UPRIGHT IN W/C 2D Dimensions LVOT 1.90 cm (M/F) 1.5-2.5 M-Mode Dimensions RVDd 3.19 cm (0.9-2.6) LVDd 2.74 cm (3.5-5.7) LVDs 1.79 cm (3.5-5.7) IVSd 1.52 cm (0.6-1.1) PWd 0.84 cm (0.6-1.1) EF (Teich) 65.70% FS 34.70% EDV (Teich) 28.00 mL ESV (Teich) 9.60 mL LV Diastology E/A Ratio 0.76 Mitral Valve MV A Velocity 62.00 (40-130 cm/s) Left Ventricle Left atrium is mildly enlarged, left ventricle is normal size, mild concentric left ventricular hypertrophy, visually estimated ejection fraction 55% with no regional wall motion abnormality, grade 1 diastolic dysfunction seen without tissue Doppler evidence of raise left atrial pressure. Right Ventricle Right atrium and right ventricle mildly enlarged with normal contractility. Aortic Valve Aortic valve is minimally thickened and fibrosed, there is no aortic stenosis, there is mild aortic insufficiency. Mitral Valve Mitral valve is minimally thickened, there is mild mitral regurgitation. Tricuspid Valve Tricuspid valve is grossly normal, there is mild tricuspid regurgitation, calculated right ventricular systolic pressure is 72 mmHg. Pulmonic Valve Pulmonic valve is poorly visualized. Great Vessels Aortic root is normal size. Pericardium No significant pericardial effusion noted. Conclusion 1. Mild biatrial enlargement, normal left ventricular size, mild concentric left ventricular hypertrophy, visually estimated ejection fraction 55% with no regional wall motion abnormality, grade 1 diastolic dysfunction seen without tissue Doppler evidence of raise left atrial pressure. 2. Mildly enlarged right ventricle with normal contractility. 3. Mild mitral and tricuspid regurgitation, calculated right ventricular systolic pressure is 72 mmHg. 4. Mild aortic insufficiency. 5. No significant pericardial effusion noted. Electronically signed by : Monty Ding, 06/26/2020 11:45:40
--- NOTE | 2020-06-26 10:44 | XR_ITS ---
PROCEDURE: XR CHEST 2V CLINICAL HISTORY: cardiomegaly Former smoker COMPARISON: CT CT CHEST WO CON from 12/20/2019 CR XR CHEST AP from 12/20/2019 CR XR CHEST PORTABLE from 12/31/2019 CR XR CHEST PORTABLE from 03/27/2020 FINDINGS: Mild cardiomegaly without failure. Chronic interstitial fibrotic changes are present with scarring in the left midlung. There are low lung volumes. No lobar consolidation or collapse is apparent. There are degenerative changes of the shoulders. Prior kyphoplasty at T12. No acute bony abnormalities. IMPRESSION: Cardiomegaly with chronic changes. No change with no acute finding Dictated by: Contreras Diop MD 06/26/2020 12:54 Contreras Diop MD in [place] 06/26/2020 12:54
[2020-06-26 12:51] LABS: Basophils % 0.7 % (0.1-2.0); Eosinophils # 0.2 K/mm3 (0.0-0.4); Eosinophils % 3.1 % (0.1-12.0); Hemoglobin 14.8 g/dL (12.2-16.2); Lymphocytes # 1.6 K/mm3 (0.7-4.5); Lymphocytes % 28.5 % (10-50); Mean Corpuscular HGB Conc 31.5 g/dL (31.8-35.4); Mean Corpuscular Hemoglobin 30.5 pg (27.0-31.2); Mean Corpuscular Volume 96.6 fl (81-99); Mean Platelet Volume 8.4 fl (7.4-10.4); Monocytes # 0.4 K/mm3 (0.1-1.0); Monocytes % 7.1 % (1.7-9.3); Neutrophils # 3.3 K/mm3 (1.8-7.8); Neutrophils % 60.6 % (37.0-80.0); Platelet Count 192 K/mm3 (142-424); Red Blood Count 4.87 M/mm3 (4.20-5.40); Red Cell Distribution Width 13.4 % (11.5-17.5); White Blood Count 5.4 K/mm3 (4.8-10.8)
[2020-06-26 13:47] LABS: Anion Gap 11.7 mEq/L (5-15); Blood Urea Nitrogen 20 mg/dl (7-17); Calcium 9.7 mg/dl (8.4-10.2); Carbon Dioxide 36 mmol/L (22.0-30.0); Chloride 95 mmol/L (98-107); Estimated Glomerular Filt Rate 81 ml/min (>60); GFR (African American) 98 ML/MIN (>60); Glucose 92 mg/dl (74-100); Potassium 4.7 mmoL/L (3.5-5.1); Sodium 138 mmol/L (136-145)
[2020-06-26 13:53] LABS: NT Pro Brain Natriuretic Pep. 150 pg/mL (0-450)
== END ==
PROVIDERS: PCP Nurse Practitioner Family; Visit Provider Urology
DX: I51.7 Cardiomegaly; R06.00 Dyspnea, unspecified; R93.89 Abnormal findings on diagnostic imaging of other specified body structures; I25.10 Atherosclerotic heart disease of native coronary artery without angina pectoris; I27.20 Pulmonary hypertension, unspecified; E78.2 Mixed hyperlipidemia; Z95.5 Presence of coronary angioplasty implant and graft
CPT/HCPCS: 36415; 71046; 80048; 83880; 85025; 93306

== ENCOUNTER 2021-04-07 22:45 | Emergency (ER) | payer MEDICARE, MEDICAID, SELFPAY ==
--- NOTE | 2021-04-07 23:01 | ECG_ITS ---
APPROVED REPORT Exam: Resting ECG HR:55 bpm ECG Measurements Heart Rate 55 AXES MN 158 P 51 QRSd 74 QRS 46 QT 462 T 35 QTc 441 Conclusion Sinus bradycardia Otherwise normal ECG Electronically signed by : Anirudh Bear, 04/08/2021 14:28:30
[2021-04-07 23:05] VITALS: BP 143/72; PULSE 57; RESP 22; TEMP 36.8; O2SAT 100; BMI 38.0
--- NOTE | 2021-04-07 23:22 | XR_ITS ---
PROCEDURE INFORMATION: Exam: XR Chest Exam date and time: 04/07/2021 11:22 PM Age: 80 years old Clinical indication: Other: AMS weakness confusion TECHNIQUE: Imaging protocol: XR of the chest. Views: 4 or more views. COMPARISON: CR XR CHEST 2V 06/26/2020 11:38 AM FINDINGS: Lungs: Again seen chronic interstitial fibrotic changes and scar involving the lungs bilaterally, particularly left midlung region. No focal consolidation to suggest pneumonia. Pleural spaces: Unremarkable. No pleural effusion. No pneumothorax. Heart/Mediastinum: The cardiomediastinal silhouette appears essentially similar. Bones/joints: T12 kyphoplasty changes noted. IMPRESSION: No acute findings. No significant interval change.
--- NOTE | 2021-04-07 23:22 | CT_ITS ---
PROCEDURE INFORMATION: Exam: CT Head Without Contrast Exam date and time: 04/07/2021 11:22 PM Age: 80 years old Clinical indication: Altered mental status/memory loss; Confusion or disorientation; Patient HX: AMS TECHNIQUE: Imaging protocol: Computed tomography of the head without contrast. Radiation optimization: All CT scans at this facility use at least one of these dose optimization techniques: automated exposure control; mA and/or kV adjustment per patient size (includes targeted exams where dose is matched to clinical indication); or iterative reconstruction. COMPARISON: CT HEAD/BRAIN WO CON 05/03/2019 8:47 PM FINDINGS: Brain: No intracranial hemorrhage. No midline shift or mass effect appreciated. There is global parenchymal volume loss, typically on an age-related basis. There is heterogeneity of the white matter attenuation noted, consistent with chronic white matter ischemic changes. The ruiz-white matter differentiation is otherwise unremarkable. No evidence of evolved territorial infarct or cerebral edema. Cerebral ventricles: Prominent ventricles likely secondary to cerebral volume loss. Paranasal sinuses: Visualized sinuses are unremarkable. No fluid levels. Mastoid air cells: Visualized mastoid air cells are well aerated. Bones/joints: Unremarkable. No acute fracture. Soft tissues: Unremarkable. IMPRESSION: 1. No acute intracranial process noted. 2. Age-related and chronic changes seen, as above.
[2021-04-07 23:30] VITALS: BP 125/74; PULSE 56; O2SAT 99
[2021-04-07 23:38] LABS: Basophils # 0.1 K/mm3 (0-0.2); Basophils % 1.5 % (0.1-2.0); Eosinophils # 0.2 K/mm3 (0.0-0.4); Eosinophils % 3.8 % (0.1-12.0); Hematocrit 40.3 % (37.0-47.0); Hemoglobin 12.7 g/dL (12.2-16.2); Lymphocytes # 1.6 K/mm3 (0.7-4.5); Lymphocytes % 37.7 % (10-50); Mean Corpuscular HGB Conc 31.6 g/dL (31.8-35.4); Mean Corpuscular Hemoglobin 28.9 pg (27.0-31.2); Mean Corpuscular Volume 91.5 fl (81-99); Mean Platelet Volume 9.6 fl (7.4-10.4); Monocytes # 0.3 K/mm3 (0.1-1.0); Monocytes % 7.3 % (1.7-9.3); Neutrophils # 2.2 K/mm3 (1.8-7.8); Neutrophils % 49.8 % (37.0-80.0); Platelet Count 162 K/mm3 (142-424); Red Cell Distribution Width 14.4 % (11.5-17.5); White Blood Count 4.4 K/mm3 (4.8-10.8)
[2021-04-07 23:45] LABS: Lactic Acid 1.3 mmol/L (0.7-2.1)
[2021-04-07 23:46] LABS: Alanine Aminotransferase 11 U/L (12-78); Albumin/Globulin Ratio 1.3 (1.1-1.8); Alkaline Phosphatase 58 U/L (38-126); Aspartate Amino Transferase 31 U/L (14-36); Bilirubin,Total 0.5 mg/dl (0.2-1.3); Blood Urea Nitrogen 16 mg/dl (7-17); Calcium 8.7 mg/dl (8.4-10.2); Chloride 93 mmol/L (98-107); Creatinine Clearance Estimated 63 mL/min (50-200); Estimated Glomerular Filt Rate 81 ml/min (>60); GFR (African American) 97 ML/MIN (>60); Globulin 3.2 g/dL (1.3-3.2); Glucose 121 mg/dl (74-100); Potassium 4.3 mmoL/L (3.5-5.1); Sodium 142 mmol/L (136-145); Total Protein,Serum 7.2 g/dl (6.3-8.2)
[2021-04-07 23:58] LABS: C-Reactive Protein 3.2 mg/L (0-4)
[2021-04-08 00:02] LABS: Carbon Dioxide 41 mmol/L (22.0-30.0)
--- NOTE | 2021-04-08 00:02 | PC.NURSE ---
Critical CO2 called from Giovany in Lab results given to Dr Charles Name and were verified.
[2021-04-08 00:03] LABS: Anion Gap 12.3 mEq/L (5-15)
[2021-04-08 00:07] LABS: Microscopic, Urine URINE MICROSCOPIC (MICROSCOPIC)
[2021-04-08 00:08] VITALS: BP 123/67; PULSE 55; O2SAT 99
[2021-04-08 00:08] LABS: Erythrocyte Sedimentation Rate 27 mm/hr (0-30)
[2021-04-08 00:13] LABS: Procalcitonin < 0.030 ng/mL (0.0-2.0)
[2021-04-08 00:15] LABS: Appearance,Urine CLEAR (Clear); Bilirubin,Urine Negative (Negative); Blood, Urine Negative (Negative); Color,Urine YELLOW (Yellow); Glucose,Urine (UA) Negative (Negative); Ketones,Urine Negative (Negative); Leukocyte Esterase,Urine Negative (Negative); Nitrate,Urine Negative (Negative); PH,Urine 6.5 (5.0-8.5); Protein,Urine Negative (Negative); Specific Gravity, Urine 1.015 (1.005-1.030); Urobilinogen,Urine 0.2 EU/dl (0.2)
--- NOTE | 2021-04-08 00:15 | HMH.EDAMS ---
ED Disposition Clinical Impression: Altered mental status Qualifiers: Altered mental status type: unspecified Qualified Code(s): R41.82 - Altered mental status, unspecified Disposition: Home, Self-Care Condition on Discharge: Good Instructions: DI for Altered Mental Status Additional Instructions: resume orders Referrals: Ricardo Charles MD [Primary Care Provider] - - Critical Care Critical Care Time: No Attestation: On 04/07/21, the high probability of a clinically significant, sudden or life threatening deterioration of the following system(s) required my full and direct attention, intervention and personal management. The time I documented below is in addition to time spent performing reported procedures but includes the following listed in this critical care notation. Medical Decision Making - Medical Records Medical records reviewed: Yes: I reviewed the patient's medical records. - Francisco Inquiry Pt receiving controlled substance: No Vital Signs: 04/07/21 23:05 04/07/21 23:30 04/08/21 00:08 Temperature 98.3 F Temperature Source Oral Pulse Rate 56 L 55 L Pulse Rate [Left] 57 L Respiratory Rate 22 Blood Pressure 125/74 123/67 Blood Pressure [Right Arm] 143/72 H Blood Pressure Mean 91 92 Blood Pressure Mean [Right Arm] 95 Blood Pressure Source [Right Arm] Automatic Cuff Blood Pressure Position [Right Arm] Supine 02 Sat by Pulse Oximetry 100 99 99 Oxygen Delivery Method Nasal Cannula Oxygen Flow Rate (LPM) 2 04/08/21 00:30 Temperature Temperature Source Pulse Rate 56 L Pulse Rate [Left] Respiratory Rate Blood Pressure 129/66 Blood Pressure [Right Arm] Blood Pressure Mean 92 Blood Pressure Mean [Right Arm] Blood Pressure Source [Right Arm] Blood Pressure Position [Right Arm] 02 Sat by Pulse Oximetry 100 Oxygen Delivery Method Oxygen Flow Rate (LPM) - Lab Data Lab results reviewed: Yes: I reviewed the patient's lab results. Lab Results 04/07/21 22:58: WBC 4.4 L, RBC 4.40, Hgb 12.7, Hct 40.3, MCV 91.5, MCH 28.9, MCHC 31.6 L, RDW 14.4, Plt Count 162, MPV 9.6, Neut % (Auto) 49.8, Lymph % (Auto) 37.7, [place] % (Auto) 7.3, Eos % (Auto) 3.8, Baso % (Auto) 1.5, Neut # (Auto) 2.2, Lymph # (Auto) 1.6, [place] # (Auto) 0.3, Eos # (Auto) 0.2, Baso # (Auto) 0.1, ESR 27 04/07/21 22:58: Sodium 142, Potassium 4.3, Chloride 93 L, Carbon Dioxide 41 H*, Anion Gap 12.3, BUN 16, Creatinine 0.70, Estimated Creat Clear 63, Estimated GFR 81, Est GFR ( Amer) 97, Glucose 121 H, Calcium 8.7, Total Bilirubin 0.5, AST 31, ALT 11 L, Alkaline Phosphatase 58, C-Reactive Protein 3.2, Total Protein 7.2, Albumin 4.0, Globulin 3.2, Albumin/Globulin Ratio 1.3, Procalcitonin < 0.030 04/07/21 22:58: Lactate 1.3 04/07/21 23:15: Urine Color Yellow, Urine Appearance Clear, Urine pH 6.5, Ur Specific [place] 1.015, Urine Protein Negative, Urine Glucose (UA) Negative, Urine Ketones Negative, Urine Blood Negative, Urine Nitrate Negative, Urine Bilirubin Negative, Urine Urobilinogen 0.2, Ur Leukocyte Esterase Negative, Urine RBC Occasional, Urine WBC Occasional, Ur Squamous Epith Cells None, Urine Bacteria None 04/08/21 00:42: Troponin I < 0.01 Result diagrams: 04/07/21 22:58 04/07/21 22:58 Orders (Tests/Meds): ED MEDICATIONS Generic Name Dose Route Start Last Admin Trade Name Freq PRN Reason Stop Dose Admin Sodium Chloride 1,000 mls @ 999 mls/hr 04/07/21 23:30 04/07/21 23:47 Sod Chlor 0.9% 1000ml Bag IV 04/08/21 00:30 999 mls/hr .Q1H1M OWEN Administration ORDERS Category Date Time Status Troponin I Q3H Lab 04/08/21 03:45 Ordered Troponin I Q3H Lab 04/08/21 06:45 Ordered Blood Culture Stat Micro 04/07/21 22:58 Received - Radiology Data #1 Image(s): Chest Image Reviewed: Yes I reviewed the patient's radiology image Preliminary Findings: Normal/NAD - CT Data CT Scan: Head Time Received: 02:[address] Reviewed: Yes: I have viewed the radiologist's interpre
[2021-04-08 00:24] LABS: RBC,Urine Occasional #/hpf (0-3); WBC,Urine Occasional #/hpf (0-3)
[2021-04-08 00:30] VITALS: BP 129/66; PULSE 56; O2SAT 100
[2021-04-08 01:29] LABS: Troponin I < 0.01 ng/ml (0.00-0.034)
[2021-04-08 02:31] VITALS: BP 124/64; PULSE 56; RESP 18; TEMP 36.8; O2SAT 99
--- NOTE | 2021-04-08 10:46 | SW/DCPLANNER ---
Received a call from Dr Francois office stating that family was interested in moving from [facility] to [place]. I did call Hellen at [place] and she is going to follow up with patients family today. I will also inform Kate with [facility].
== END 2021-04-08 02:49 | disposition home or self-care (01) ==
PROVIDERS: Emergency Provider Emergency Medicine; PCP Emergency Medicine
DX: R41.82 Altered mental status, unspecified (principal); R29.702 NIHSS score 2; I10 Essential (primary) hypertension; E03.9 Hypothyroidism, unspecified; E78.5 Hyperlipidemia, unspecified; I50.9 Heart failure, unspecified; J44.9 Chronic obstructive pulmonary disease, unspecified
CPT/HCPCS: 70450; 71045; 80053; 81001; 83605; 84145; 84484; 85025; 85651; 86140; 87040; 93005; 96365; 99284

== ENCOUNTER → 2021-07-28 10:07 | Outpatient (CLI) | payer MEDICARE, MEDICAID, SELFPAY ==
[2021-07-28 14:02] LABS: Occult Blood,Stool Negative (Negative)
== END ==
PROVIDERS: Visit Provider Nurse Practitioner Family
DX: R79.89 Other specified abnormal findings of blood chemistry (principal)
CPT/HCPCS: 82272; G0328

== ENCOUNTER → 2021-12-19 11:32 | Outpatient (CLI) | payer MEDICARE, MEDICAID, SELFPAY ==
[2021-12-19 11:47] LABS: Microscopic, Urine URINE MICROSCOPIC (MICROSCOPIC)
[2021-12-19 14:31] LABS: Appearance,Urine SL CLOUDY (Clear); Bilirubin,Urine Negative (Negative); Blood, Urine 2+ (Negative); Color,Urine YELLOW (Yellow); Glucose,Urine (UA) Negative (Negative); Ketones,Urine Negative (Negative); Leukocyte Esterase,Urine Negative (Negative); Nitrate,Urine Negative (Negative); Protein,Urine Negative (Negative); Specific Gravity, Urine 1.025 (1.005-1.030); Urobilinogen,Urine 0.2 EU/dl (0.2)
[2021-12-19 15:05] LABS: Bacteria,Urine Trace /lpf; Squamous Epithelial Cell,Urine Occasional #/hpf (0-5)
[2021-12-19 15:07] LABS: Amorphous Sediment,Urine Trace /lpf; RBC,Urine Occasional #/hpf (0-3); WBC,Urine Occasional #/hpf (0-3)
== END ==
PROVIDERS: PCP Emergency Medicine; Visit Provider Emergency Medicine
DX: R35.0 Frequency of micturition (principal)
CPT/HCPCS: 81001

== ENCOUNTER → 2021-12-20 11:52 | Outpatient (CLI) | payer MEDICARE, MEDICAID, SELFPAY ==
[2021-12-20 12:38] LABS: Basophils % 0.7 % (0.1-2.0); Eosinophils # 0.2 K/mm3 (0.0-0.4); Eosinophils % 2.8 % (0.1-12.0); Hematocrit 41.3 % (37.0-47.0); Hemoglobin 13.1 g/dL (12.2-16.2); Lymphocytes % 36.6 % (10-50); Mean Corpuscular HGB Conc 31.8 g/dL (31.8-35.4); Mean Corpuscular Hemoglobin 31.6 pg (27.0-31.2); Mean Corpuscular Volume 99.3 fl (81-99); Mean Platelet Volume 8.9 fl (7.4-10.4); Monocytes # 0.3 K/mm3 (0.1-1.0); Monocytes % 6.3 % (1.7-9.3); Neutrophils # 2.9 K/mm3 (1.8-7.8); Neutrophils % 53.6 % (37.0-80.0); Platelet Count 203 K/mm3 (142-424); Red Blood Count 4.16 M/mm3 (4.20-5.40); Red Cell Distribution Width 14.5 % (11.5-17.5); White Blood Count 5.3 K/mm3 (4.8-10.8)
[2021-12-20 13:18] LABS: Alanine Aminotransferase 15 U/L (12-78); Albumin Level 3.8 g/dl (3.5-5.0); Albumin/Globulin Ratio 1.5 (1.1-1.8); Alkaline Phosphatase 60 U/L (38-126); Aspartate Amino Transferase 28 U/L (14-36); Bilirubin,Total 0.6 mg/dl (0.2-1.3); Blood Urea Nitrogen 18 mg/dl (7-17); Calcium 8.7 mg/dl (8.4-10.2); Chloride 96 mmol/L (98-107); Estimated Glomerular Filt Rate 80 ml/min (>60); GFR (African American) 97 ML/MIN (>60); Globulin 2.6 g/dL (1.3-3.2); Glucose 98 mg/dl (74-100); Sodium 140 mmol/L (136-145); Total Protein,Serum 6.4 g/dl (6.3-8.2)
[2021-12-20 13:25] LABS: Carbon Dioxide 40 mmol/L (22.0-30.0)
== END ==
PROVIDERS: PCP Emergency Medicine; Visit Provider Nurse Practitioner Family
DX: R41.0 Disorientation, unspecified (principal); B96.20 Unspecified Escherichia coli [E. coli] as the cause of diseases classified elsewhere
CPT/HCPCS: 80053; 85025; 87086; 87088; 87186

== ENCOUNTER → 2023-04-14 16:22 | Outpatient (CLI) | payer MEDICARE, MEDICAID, SELFPAY ==
[2023-04-14 17:04] LABS: Microscopic, Urine URINE MICROSCOPIC (MICROSCOPIC)
[2023-04-14 17:18] LABS: Appearance,Urine SL CLOUDY (Clear); Blood, Urine 1+ (Negative); Color,Urine YELLOW (Yellow); Glucose,Urine (UA) Negative (Negative); Ketones,Urine Negative (Negative); Leukocyte Esterase,Urine Negative (Negative); Nitrate,Urine Negative (Negative); PH,Urine 5.5 (5.0-8.5); Protein,Urine TRACE (Negative); Specific Gravity, Urine >= 1.030 (1.005-1.030)
[2023-04-14 17:52] LABS: Bilirubin,Urine 1+ (Negative)
[2023-04-14 18:17] LABS: Bacteria,Urine Trace /lpf; WBC,Urine Occasional #/hpf (0-3)
== END ==
PROVIDERS: PCP Internal Medicine Adolescent Medicine; Visit Provider Internal Medicine Adolescent Medicine
DX: R41.0 Disorientation, unspecified; R30.9 Painful micturition, unspecified
CPT/HCPCS: 81001; 87086

== ENCOUNTER 2024-02-11 15:35 | Outpatient (CLI) | payer MEDICARE, MEDICAID, SELFPAY ==
[2024-02-11 15:53] LABS: Microscopic, Urine URINE MICROSCOPIC (MICROSCOPIC)
[2024-02-11 16:10] LABS: Appearance,Urine CLEAR (Clear); Bilirubin,Urine Negative (Negative); Blood, Urine Negative (Negative); Color,Urine YELLOW (Yellow); Glucose,Urine (UA) Negative (Negative); Ketones,Urine Negative (Negative); Leukocyte Esterase,Urine Negative (Negative); Nitrate,Urine Negative (Negative); PH,Urine 5.5 (5.0-8.5); Protein,Urine Negative (Negative)
[2024-02-11 16:31] LABS: Bacteria,Urine Trace /lpf; Squamous Epithelial Cell,Urine Occasional #/hpf (0-5)
== END 2024-02-11 23:59 | disposition home or self-care (01) ==
LOC: LAB.DROPOF 15:37
PROVIDERS: PCP Internal Medicine Adolescent Medicine; Visit Provider Internal Medicine Adolescent Medicine
DX: M54.50 Low back pain, unspecified (principal); R30.9 Painful micturition, unspecified
CPT/HCPCS: 81001

== ENCOUNTER 2024-04-22 18:24 | Emergency (ER) | payer MEDICARE, MEDICAID, SELFPAY ==
[2024-04-22 18:36] VITALS: BP 123/88; PULSE 82; RESP 16; TEMP 36.9; O2SAT 95; BMI 32.8
--- OUTSIDE RECORDS SUMMARY | 2024-04-22 18:42 | XMS_ITS | Clinical Summary ---
Author Organization [facility] Address [address] [place] [address] Phone Care Team Providers Care Tarper Name Role Phone Marilynn BARBA, Jose Corona Unavailable [ ] Conditions or Problems No information available. Medications No information available. Medications Administered No information available. Allergies, Adverse Reactions, Alerts No information available. Results No information available. Plan of Care No information available. Procedures No information available. Vital Signs No information available. Immunizations No information available. Advance Directives No information available.
--- OUTSIDE RECORDS SUMMARY | 2024-04-22 18:42 | XMS_ITS | Continuity of Care Document ---
Author Organization [address] [place] [address] Address [address] [facility] [address] [place] [address] Phone Care Team Providers Care Casino Cashier Name Role Phone Steffi Salgado DMD Unavailable Unavaila ble Allergies, Adverse Reactions, Alerts Substance Reaction Status Criticality carbamazepine Active No Information promethazine Active No Information Medications Medication Instructions Dosage Effective Dates (start - stop) Status Comments docusate sodium 250 mg capsule - Active acetaminophen 500 mg tablet - Active mirtazapine 7.5 mg tablet - Active budesonide 1 mg/2 mL suspension for nebulization - Active azithromycin 250 mg tablet - Active ipratropium 0.5 mg-albuterol 3 mg (2.5 mg base)/3 mL nebulization soln - Active ketorolac 0.5 % eye drops - Active ofloxacin 0.3 % eye drops - Active prednisolone acetate 1 % eye drops,suspension - Active Symbicort 160 mcg-4.5 mcg/actuation HFA aerosol inhaler - Active prednisone 10 mg tablet - Ac tive prednisone 20 mg tablet - Ac tive dextromethorphan-guaifenes in 10 mg-100 mg/5 mL oral syrup - Active levothyroxine 88 mcg tablet - Active atorvastatin 20 mg tablet - Active ipratropium bromide 21 mcg (0.03 %) nasal spray - Active pantoprazole 40 mg tablet,delayed release - Active montelukast 10 mg tablet - A ctive ropinirole 2 mg tablet - Act thomas carvedilol 3.125 mg tablet - Active furosemide 20 mg tablet - Ac tive levetiracetam 500 mg tablet - Active donepezil 10 mg tablet - Act thomas levocetirizine 5 mg tablet - Active spironolactone 25 mg tablet - Active pregabalin 150 mg capsule - Active albuterol sulfate 0.63 mg/3 mL solution for nebulization - Active fluticasone propionate 50 mcg/actuation nasal spray,suspension - Active donepezil 5 mg tablet - Acti ve ketoconazole 2 % shampoo - A ctive levofloxacin 250 mg tablet - Active levofloxacin 500 mg tablet - Active carvedilol 6.25 mg tablet - Active cefdinir 300 mg capsule - Ac tive baclofen 10 mg tablet - Acti ve ropinirole 1 mg tablet - Act thomas methylprednisolone 4 mg tablets in a dose pack - Active Aspir-81 81 mg tablet,delayed release take 1 tablet by oral route every day - Active Procedures Procedure Date Complete Denture - Mandibular Repair Broken Complete Denture Base Isaak ibular Compsve Oral Eval- New/Est Pat 24 Bite Registration Vision svcs frames purchases FITTING OF SPECTACLES DETERMINE REFRACTIVE STATE Lens spher bifoc plano 4.00d PARING/CUTG B9 HYPRKER LES 1 DEBRIDE NAIL 1-5 Trim nail(s) COMPRE OPH EXAM EST PT 1/> House/Extended Care Facility Call Reimpress Adjust Complete Denture Maxil 4 Adjust Complete Denture Isaak DEBRIDE NAIL 1-5 Trim nail(s) COMPREHENSIVE HEARING TEST NURSING FAC CARE SUBSEQ Complete Denture - Maxillary Complete Denture - Mandibular 3 FUNDUS PHOTOGRAPHY SBSQ NF CARE MODERATE MDM 30 Try In DEBRIDE NAIL 1-5 TRIM NAIL(S) Limited Oral Eval Prob Focused Denture Impression Bite Registration DEBRIDE NAIL 1-5 TRIM NAIL(S) FUNDUS PHOTOGRAPHY EYE EXAM & TREATMENT Periodic Oral Evaluation TYMPANOMETRY (IMPEDANCE TESTING) 2022 DEBRIDE NAIL 6 OR MORE REMOVE IMPACTED EAR WAX FUNDUS PHOTOGRAPHY ECHO EXAM OF EYE THICKNESS EYE EXAM & TREATMENT DEBRIDE NAIL 1-5 TRIM NAIL(S) HEARING SERVICE, MISCELLANEOUS 22 DEBRIDE NAIL 6 OR MORE EYE EXAM & TREATMENT Compsve Oral Eval- New/Est Pat 22 Ophthalmological services, E/M Sadiq Betancourt nt,Comprehensive,1 or more visits Advance Directives Directive Yes / No Effective Date File Name No Information Encounters Encounter Description Practice Location Reason(s) For Visit Diagnoses Date Provider Providers Copied on Encounter [address] [place] [address], [address] [facility] [address], [place], [place], [id number], [place] tel:[phone] [facility] No Information 4 Damian Kapadia. [address] [facility], [address], [place], [place], [id number], [place]. tel:[phone] [place] [address], [address] [facility] 300, [place], [place], [id number], tel:[phone] [facility] Complete loss of teeth, unspecified cause, unspecified classEncounte r for fitting and adjustment of dental prosthetic device 4 Damian Kapadia. [address] [facility], [address], [place], [place], [id number], [place]. tel:[phone] Referring Provider: Ricardo Pool. [address] [place] [address], [address] [facility] 300, [place], [place], [id number], tel:[phone] [facility] Encounter for dental examination and cleaning without abnormal findings 4 Jan Tim. [address] [facility], [address], [place], [place], [id number], [place]. tel:[phone] Referring Provider: Ricardo Pool. [address] [place] [address], [address] [place] [address], [place], [place], [id number], tel:[phone] [facility] No Information [id number] [place] [address], [address], [place], [facility], [place]. tel:[phone] Referring Provider: Ricardo Pool. [address] [place] [address], [address] [place] [address], [place], [place], [id number], [place] tel:[phone] [facility] Presbyopia January-0 4 Anthony Foster. , [place]. [address] [place] [address], [address] [facility] 300, [place], [place], [id number], [place] tel:[phone] [facility] Nail dystrophyCorn s and callositiesOt her specified peripheral vascular diseasesTinea unguium January- 4 James Mitchell. [address] [facility], [address], [place], [address], [place]. Referring Provider: Anirudh Bear. [address] [place] [address], [address] [place] [address], [place], [place], [id number], [place] tel:[phone] [facility] Glaucoma, suspect (chief complaint) Cataract (chief complaint) Combined forms of age-related cataract, bilateralOpen angle with borderline findings, low risk, bilateralPres byopia 4 Anthony Foster. , [place]. Referring Provider: Ricardo Pool. [facility], [address] [place] [address], [place], [place], [id number], [place] tel:[phone] [facility] Encounter for dental examination and cleaning without abnormal findings 4 Rudy Das. [place], [place]. tel:[phone] Referring Provider: Ricardo Pool. [address] [place] [address], [address] [place] [address], [place], [place], [id number], [place] tel:[phone] [facility] Encounter for fitting and adjustment of dental prosthetic device [address] [place] [address], [address], [place], [address], [place]. tel:[phone] Referring Provider: Ricardo Pool. [address] [place] [address], [address] [place] [address], [place], [id number], [place] tel:[phone] [facility] Nail dystrophyOthe r specified peripheral vascular diseasesTinea unguium 4 James Mitchell. [address] [facility], [address], [place], [address], [place]. Referring Provider: Anirudh Bear. [address] [place] [address], [address] [place] [address], [place], [id number], [place] tel:[phone] [facility] No Information 4 James Mitchell. [address] [place] [address], [address], [place], [address], [place]. [address] [place] [address], [address] [place] [address], [place], [id number], [place] tel:[phone] [facility] Sensorineural hearing loss, bilateral 4 [place]. [place]. Referring Provider: Ricardo Pool. NURSING [facility] CARE SUBSEQ [address] [place] [address], [address] [facility], [place], [place], [id number], [place] tel:[phone] [facility] hearing loss (chief complaint) Unspecified hearing loss, bilateral 0 3 Akash-Hard polo Cinthia. [address] [facility], [address], [place], [address], [place]. Referring Provider: Ricardo Polo. [address] [place] [address], [address] [place] [address], [place], [id number], [place] tel:[phone] [facility] Complete loss of teeth, unspecified cause, unspecified class 3 Michael Christian. [address] [facility], [address], [place], [place], [id number], [place]. tel:[phone] Referring Provider: Ricardo Pool. [facility] CARE MODERATE MDM [address] [place] [address], [address] [place], [place] [address] [address], [place], [place], [id number], [place] tel:[phone] [facility] Glaucoma, suspect (chief complaint) Combined forms of age-related cataract, bilateralOpen angle with borderline findings, low risk, bilateral Jun-2 3 Candido Kapadia. [address] [facility], [address], [place], [address], [place]. Referring Provider: Ricardo Pool. [address] [place] [address], [address] [place] [address], [place], [place], [id number], [place] tel:[phone] [facility] No Information Jun-2 3 Mick Wilkerson. [place], [id number], [place]. tel:[phone] Referring Provider: Ricardo Pool. [address] [place] [address], [id number] [place] [address], [place], [id number], [place] tel:[phone] [facility] Nail dystrophyOthe r specified peripheral vascular diseasesTinea unguium Sep-2 3 James Mitchell. [address] [facility], [address], [place], [address], [place]. [facility] [place], [address] [place] [address], [place], [place], [id number], tel:[phone] [facility] Encounter for dental examination and cleaning without abnormal findings Sep-0 3 [place], [place]. Referring Provider: Ricardo Pool. [facility] [place], [address] [place] [address], [place], [place], [id number], [place] tel:[phone] [facility] Nail dystrophyOthe r specified peripheral vascular diseasesTinea unguium Bob-2 3 James Mitchell. [address] [facility], [address], [place], [address], [place]. Referring Provider: Anirudh Bear. [facility], [address] [place] [address], [place], [place], [id number], [place] tel:[phone] [facility] Glaucoma, suspect (chief complaint) Combined forms of age-related cataract, bilateralOpen angle with borderline findings, low risk, bilateral January-2 [address] [place] [address], [address] [facility][note 2], [place], [address], [place]. Referring Provider: Ricardo Pool. [facility], [address] [place] [address], [place], [place], [id number], [place] tel:[phone] [facility] Encounter for dental examination and cleaning without abnormal findings January-0 3 [place], [place]. Referring Provider: Ricardo Pool. [facility], [address] [place] [address], [place], [id number], [place] tel:[phone] [facility] Other specified disorders of Eustachian tube, right ear Mar-2 - 3 [place], [place]. Referring Provider: Ricardo Pool. [facility], [address] [place] [address], [place], [place], [address], [place] tel:[phone] [facility] Other specified peripheral vascular diseasesTinea unguium Nov- 3 James Mitchell. [address] [facility], [address], [place], [address], . Referring Provider: Anirudh Bear. [address] [place] [address], [address] [place] [address], [place], [place], [id number], tel:[phone] [facility] hearing loss (chief complaint) Impacted cerumen, right ear Feb-0 3 Akash-Hard polo Cinthia. [address] [place] [address] Rd, [address], [place], [address], [place]. Referring Provider: Ricardo Pool. [facility], [address] [place] [address], [place], [place], [address], tel:[phone] [facility] No Information Oct-0 3 [place]-Hard polo Cinthia. [address] [place] [address], [address], [place], [address], [place]. [facility], [address] [place] [address], [place], [place], [id number], tel:[phone] [facility] Cataract (chief complaint) Combined forms of age-related cataract, bilateralOpen angle with borderline findings, low risk, bilateral Aug- 2 Anthony Martinsa. , [place]. Referring Provider: Ricardo Pool. [address] [place] [address], [address] [place] [address], [place], [place], [id number], [place] tel:[phone] [facility] Tinea unguiumOther specified peripheral vascular diseasesNail dystrophy Aug-0 2 James Mitchell. [address] [facility], [address], [place], [address], [place]. Referring Provider: Anirudh Dinero. [facility], [address] [place] [address], [place], [place], [address], [place] tel:[phone] [facility] Impacted cerumen, right ear Jul- 2 Yuri Ovalle. , [place]. Referring Provider: Ricardo Pool. [address] [place] [address], [address] [facility] 300, [place], [place], [id number], tel:[phone] [facility] Tinea unguiumOther specified peripheral vascular diseases 2 James Mitchell. [address] [facility], [address], [place], [address], [place]. Referring Provider: Ricardo Pool. [address] [place] [address], [address] [place] [address], [place], [place], [id number], tel:[phone] [facility] Cataract (chief complaint) Combined forms of age-related cataract, bilateralOpen angle with borderline findings, low risk, bilateralDry eye syndrome of bilateral lacrimal glands 2 Candido Kapadia. [address] [facility], [address], [place], [address], [place]. Referring Provider: Ricardo Pool. [address] [place] [address], [address] [place] [address], [place], [place], [id number], tel:[phone] [facility] Encounter for dental exam and cleaning w/o abnormal findings 2 [facility]. , [place]. Referring Provider: Ricardo Pool. [address] [place] [address], [address] [place] [address], [place], [place], [id number], tel:[phone] [facility] No Information 9 [place], [place]. tel:[phone] [place] [address], [address] [place] [address], [place], [place], [id number], [place] tel:[phone] [facility] Medical eye problem (chief complaint) Age-related nuclear cataract, bilateralPres byopia 9 Jean Claude Escobedo. [address] [place], [place], [facility], . tel:[phone] Referring Provider: Ric Canseco. Family History Family Member Type Diagnosis Age At Onset No Information Payers Payer name Insurance type Covered constitution party ID Authoriza tion(s) [facility] [place] [id number] [place] [id number] Social History Type Description Quantity Date Captured Comments Sex Female Smoking Status No Information Chief Complaint And Reason For Visit No Information Reason For Referral Reason For Referral No Information Plan Of Treatment Date Type Action Status Appointment Julia Khan BOOKED Patient Education Learning About Dental Care and Your Health Problem completed Patient Education Earwax Blockage: Care I nstructions completed Patient Education Learning About Dentures completed Patient Education Learning About Dentures completed Patient Education Learning About Dentures completed Patient Education Learning About Dental Care and Your Health Problem completed Patient Education Earwax Blockage: Care I nstructions completed Patient Education Learning About Dental Care and Your Health Problem completed Patient Education Reduced Vision: Care In structions completed History Of Present Illness Encounter Date Complaint History Of Prese nt Illness Cataract Glaucoma, suspect The 83 year ol d patient presents for evaluation of Glaucoma, suspect in the right eye and left eye. It occurs always. The onset was gradual. The symptom is constant. Glaucoma, suspect The 82 year ol d patient presents for evaluation of Glaucoma, suspect in the right eye and left eye. It occurs doing close work. The onset was gradual. It affects distance vision. It affects near vision. Glaucoma, suspect The 82 year ol d patient presents for evaluation of Glaucoma, suspect in the right eye and left eye. It occurs all the time. The onset was gradual. It affects VA not affected. It affects both near and far vision. Cataract The 81 year old female presents for evaluation of Cataract in the right eye and left eye. It occurs always. The onset was progressive. It affects both near and far vision. Cataract The 81 year old female presents for evaluation of Cataract in the right eye and left eye. It occurs all the time. The onset was gradual. It affects both near and far vision. The symptom is constant. eyes get watery Medical eye problem The 78 year old female presents for evaluation of Medical eye problem. thinks she has cataracts x 5 years. Functional Status Date Functional Assessmen t No Information Instructions Date Instruction Additional Infor mation All dystrophic nails were debrided in length and thickness as needed to prevent pain and other symptoms. Related to Nail dystrophy All of the calluses were debrided/pared to prevent further tissue breakdown and pain. Related to Corns and callosities Toenails 1 b/l were debrided in length and thickness without incident. Follow up in 2-3 months. Related to Tinea unguium Return in 6-9 months for IOP chandrakant ck. Related to Open angle with borderline findings, low risk, bilateral Impression/Plan - Ca taracts are moderate and are affecting visual acuity; however, no treatment recommended at this time. We will monitor for progression. Related to Combined forms of age-related cataract, bilateral Follow up - Return i n 6-9 months for IOP check. Related to Open angle with borderline findings, low risk, bilateral Impression/Plan - Sami rderline Glaucoma findings; No treatment indicated at this time; Further testing needed to assess risk of developing glaucoma. Related to Open angle with borderline findings, low risk, bilateral Impression/Plan - Gl asses order will be processed at request of resident. Related to Presbyopia Toenails 1 b/l were debrided in length and thickness without incident. Follow up in 2-3 months. Related to Tinea unguium All dystrophic nails were debrided in length and thickness as needed to prevent pain and other symptoms. Related to Nail dystrophy The patient's functi onal hearing ability was excellent in both ears. Further audiology tx is not needed at this time. Related to Sensorineural hearing loss, bilateral follow up in 12-15 m [facility] or sooner if needed. Related to Unspecified hearing loss, bilateral We will schedule a f ollow up appointment in 6-9 months for a dilated fundus exam. Related to Open angle with borderline findings, low risk, bilateral Impression/Plan - Ca taracts are visually significant; Please schedule for cataract evaluation with [facility] Related to Combined forms of age-related cataract, bilateral Follow up - We will schedule a follow up appointment in 6-9 months for a dilated fundus exam. Related to Open angle with borderline findings, low risk, bilateral Impression/Plan - Sami rderline Glaucoma findings; No treatment indicated at this time; Further testing needed to assess risk of developing glaucoma. Related to Open angle with borderline findings, low risk, bilateral All dystrophic nails were debrided in length and thickness as needed to prevent pain and other symptoms. Related to Nail dystrophy Toenails 1 b/l were debrided in length and thickness without incident. Follow up in 2-3 months. Related to Tinea unguium All dystrophic nails were debrided in length and thickness as needed to prevent pain and other symptoms. Related to Nail dystrophy Toenails 1 b/l were debrided in length and thickness without incident. Follow up in 2-3 months. Related to Tinea unguium Impression/Plan - Ca taracts are visually significant; Please schedule for cataract evaluation with [facility], Related to Combined forms of age-related cataract, bilateral Impression/Plan - Sami rderline Glaucoma findings; No treatment indicated at this time; Further testing needed to assess risk of developing glaucoma. Related to Open angle with borderline findings, low risk, bilateral See prn for complaints Related t o Other specified disorders of Eustachian tube, right ear Toenails 1-5 b/l wer e debrided in length and thickness without incident. Follow up in 2-3 months. Related to Tinea unguium Follow up in 6-9 mon ths or sooner if needed. f/u with audiology as scheduled. Related to Impacted cerumen, right ear Return in 6-9 months for IOP chandrakant ck. Related to Open angle with borderline findings, low risk, bilateral Impression/Plan - Ca taracts are visually significant; Please schedule for cataract evaluation with Documentation Consultant of facility choice. Related to Combined forms of age-related cataract, bilateral Follow up - Return i n 6-9 months for IOP check. Related to Open angle with borderline findings, low risk, bilateral Impression/Plan - Sami rderline Glaucoma findings; No treatment indicated at this time; Further testing needed to assess risk of developing glaucoma. Pachymetry performed, add 1 to IOP OU Related to Open angle with borderline findings, low risk, bilateral Toenails 1 b/l were debrided in length and thickness without incident. Follow up in 2-3 months. Related to Tinea unguium All dystrophic nails were debrided in length and thickness as needed to prevent pain and other symptoms. Related to Nail dystrophy Refer for cerumen re moval in the right ear. Related to Impacted cerumen, right ear Toenails 1-5 b/l wer e debrided in length and thickness without incident. Follow up in 2-3 months. Related to Tinea unguium We will schedule a f ollow up appointment in 6-9 months for a dilated fundus exam. Related to Combined forms of age-related cataract, bilateral Impression/Plan - Dr y eye syndrome is significant; treat with artificial tears solution; 1 drop both eyes twice per day. Related to Dry eye syndrome of bilateral lacrimal glands Impression/Plan - Ca taracts are moderate and are affecting visual acuity; however, no treatment recommended at this time. We will monitor for progression. Related to Combined forms of age-related cataract, bilateral Follow up - We will schedule a follow up appointment in 6-9 months for a dilated fundus exam. Related to Combined forms of age-related cataract, bilateral Impression/Plan - Sami rderline Glaucoma findings; No treatment indicated at this time; Further testing needed to assess risk of developing glaucoma. Related to Combined forms of age-related cataract, bilateral Impression/Plan - Ca taracts are moderate and are affecting visual acuity; however, no treatment recommended at this time. We will monitor for progression. Related to Age-related nuclear cataract, bilateral Impression/Plan Related to Age-r elated nuclear cataract, bilateral Impression/Plan - +2 .75 or +3.00 readers Related to Presbyopia Assessments Type Assessment Date No Information Patient Care Teams Name Effective Dates (start - stop) Status Members No Information
--- NOTE | 2024-04-22 19:06 | XR_ITS ---
PROCEDURE INFORMATION: Exam: XR Left Tibia and Fibula Exam date and time: 04/22/2024 7:23 PM Age: 83 years old Clinical indication: Pain; Lower leg; Left; Additional info: Injury/pain TECHNIQUE: Imaging protocol: Radiologic exam of the left tibia and fibula. Views: 2 views. COMPARISON: CR XR TIBIA FIBULA LT 2V 04/22/2024 7:23 PM FINDINGS: Bones/joints: There is no evidence of acute fracture or dislocation. Moderate osteoarthritis involves the femorotibial joint. Mild degenerative changes involve the tibiotalar joint. There is moderate diffuse osteopenia. Soft tissues: No significant soft tissue edema. No subcutaneous emphysema or radiopaque foreign bodies. IMPRESSION: No acute posttraumatic osseous injury.
--- NOTE | 2024-04-22 19:06 | XR_ITS ---
PROCEDURE INFORMATION: Exam: XR Left Ankle Exam date and time: 04/22/2024 7:23 PM Age: 83 years old Clinical indication: Pain; Ankle; Left; Additional info: Injury/pain TECHNIQUE: Imaging protocol: Radiologic exam of the left ankle. Views: 1 or 2 views. COMPARISON: CR XR ANKLE LT MIN 3V 04/22/2024 7:23 PM FINDINGS: Bones/joints: There is no evidence of acute fracture or dislocation. There is mild osteoarthritis involving the tibiotalar joint. There is moderate diffuse osteopenia. Calcaneal spurs are demonstrated at the origin of the plantar fascia and the insertion of the Achilles tendon. Soft tissues: There is mild soft tissue edema, most prominent laterally. No subcutaneous emphysema or radiopaque foreign bodies. IMPRESSION: 1. No acute posttraumatic osseous injury. 2. Mild soft tissue edema. 3. Mild osteoarthritis.
--- NOTE | 2024-04-22 19:06 | XR_ITS ---
PROCEDURE INFORMATION: Exam: XR Left Foot Exam date and time: 04/22/2024 7:23 PM Age: 83 years old Clinical indication: Pain; Foot; Left; Additional info: Injury/pain TECHNIQUE: Imaging protocol: Radiologic exam of the left foot. Views: 3 or more views. COMPARISON: CR XR FOOT LT MIN 3V 04/22/2024 7:23 PM FINDINGS: Bones/joints: There is a linear focus of sclerosis involving the distal metaphysis of the 4th metatarsal which may reflect subacute or chronic fracture. Correlate clinically. Otherwise, there is no evidence of acute fracture or dislocation. There is moderate diffuse osteopenia. Osteopenia limits the exclusion of subtle fractures. 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 There is moderate joint space narrowing involving the 1st MTP joint with subchondral sclerosis. 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 Soft tissues: No significant soft tissue edema. No subcutaneous emphysema or radiopaque foreign bodies. IMPRESSION: 1. No acute posttraumatic osseous injury. 2. Linear focus of sclerosis involving the distal metaphysis of the 4th metatarsal which may reflect subacute or chronic fracture. Correlate clinically. 3. Prominent osteopenia which mildly limits exclusion of subtle fractures. 4. 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
--- NOTE | 2024-04-22 19:06 | XR_ITS ---
PROCEDURE INFORMATION: Exam: XR Left Knee Exam date and time: 04/22/2024 7:23 PM Age: 83 years old Clinical indication: Pain; Knee; Left; Additional info: Injury/pain TECHNIQUE: Imaging protocol: Radiologic exam of the left knee. Views: 3 views. COMPARISON: CR (KNEE AP, KNEE, KNEE AP) 02/15/2019 3:21 PM FINDINGS: Bones/joints: There is no evidence of acute fracture or dislocation. [id number] osteoarthritis involves the femorotibial joint space with joint space narrowing and subchondral sclerosis and mild marginal osteophytes. Soft tissues: There is mild lateral soft tissue edema. No subcutaneous emphysema or radiopaque foreign bodies. No joint effusion. IMPRESSION: No acute posttraumatic osseous injury.
--- NOTE | 2024-04-22 19:08 | ED_ITS ---
Discharge Plan Disposition Patient Disposition: Home, Self-Care Prescriptions Prescriptions: No Action donepezil 5 mg tablet 5 mg PO DAILY baclofen 10 mg tablet 10 mg PO BID montelukast 10 mg tablet 10 mg PO HS Qty: 90 0RF carvedilol 6.25 mg tablet 6.25 mg PO BID Qty: 60 1RF atorvastatin 20 mg tablet 20 mg PO HS Qty: 90 2RF Orabase (benzocaine) 20 % paste 1 applic mucous membrane TID PRN (Reason: mouth irritation) Qty: 571.2 0RF pregabalin 150 mg capsule 150 mg PO TID Qty: 90 5RF ipratropium-albuterol 0.5 mg-3 mg(2.5 mg base)/3 mL solution for nebulization 3 ml IH Q6HP PRN (Reason: SHORTNESS OF BREATH) Patient Comments: USE 1 VIAL VIA NEBULIZER Q 6 H PRN levetiracetam 500 MG tablet 500 mg PO BID levothyroxine 88 MCG tablet 88 mcg PO DAILY ropinirole 0.5 mg tablet 2 mg PO HS ketotifen fumarate 10 ML drops 1 drp OP HS fluticasone propionate 9.9 ML spray,suspension 1 spray NS DAILY loratadine 10 MG tablet 10 mg PO DAILY spironolactone 25 MG tablet 25 mg PO DAILY furosemide 20 MG tablet 20 mg PO DAILY Referrals Follow up/Referrals: Wan Guerrero DO [Staff Physician] - See instructions Sunitha Johnston APRN [Primary Care Provider] - See instructions Activity Restrictions/Add. Instructions Additional Instructions/Restrictions: No definitive fracture was found on your x-rays today however given your severe low bone density interpretation of the x-rays is limited and I recommend you follow-up closely with orthopedic surgery to see if they would like to do more advanced imaging or have other therapeutic interventions that may be needed for this. Cannot definitively rule out a fracture particular in the area of your first MTP joint where you are maximally tender. Clinical Impressions Clinical Impression: Acute pain of left lower extremity, Foot injury, Osteoporosis Print Language Print Language: Norwegian Discharge ED Provider: Cj Harley General Adult HPI General Chief complaint: Extremity Problem,Nontraumatic Stated complaint: Sick Time Seen by Provider: 04/22/24 18:59 Mode of Arrival: EMS Source of Information: Patient and EMS Limitations: No Limitations Description of Symptoms (Recalled from ER Triage Doc. by RN): pt c/o BLE pain that is squeezing/ cramping in nature and an 8/10. pt reports the pain is slightly worse in the LLE. no injury. no other symptoms. EMS reports the pts lyrica dose was changed two weeks ago from 150 mg daily to 75mg BID. History of Present Illness HPI narrative: Patient is a an 83-year-old female presenting today with family for left lower extremity pain. The patient denies any definitive history of injury however daughter who is at the bedside states that around 3 weeks ago her wheelchair locked up and that they accidentally drove her into the wall and she had an injury to the left foot and since that time she has been having significant pain. They have been treating her with some topical cream and oral pain medication at the half-way and she continues to have pain primarily in the left toe. She states that its mainly in her great toe and radiates up into her leg no swelling no redness no lesions no fevers etc. Related Data Home Medications ?Medication ?Instructions ?Recorded ?Confirmed ipratropium 0.5 mg-albuterol 3 mg 3 ml inhalation Q6HP PRN SHORTNESS 12/11/19 04/25/22 (2.5 mg base)/3 mL nebulization OF BREATH soln levetiracetam 500 mg tablet 500 mg PO BID SEIZURES 12/11/19 04/25/22 levothyroxine 88 mcg tablet 88 mcg PO DAILY HYPOTHYROIDSIM 12/11/19 04/25/22 baclofen 10 mg tablet 10 mg PO BID muscle spasm 06/15/20 04/25/22 donepezil 5 mg tablet 5 mg PO DAILY dementia 06/15/20 04/25/22 ropinirole 0.5 mg tablet 2 mg PO HS rls 06/15/20 04/25/22 fluticasone propionate 50 1 spray intranasal DAILY Allergy 04/08/21 04/25/22 mcg/actuation nasal symptoms spray,suspension furosemide 20 mg tablet 20 mg PO DAILY Fluid 04/08/21 04/25/22 ketotifen fumarate 0.025 % (0.035 1 drp ophthalmic (eye) HS itchy 04/08/21 04/25/22 %) eye drops watery eyes loratadine 10 mg tablet 10 mg PO DAILY Allergy symptoms 04/08/21 04/25/22 spironolactone 25 mg tablet 25 mg PO DAILY fluid 04/08/21 04/25/22 Previous Rx's ?Medication ?Instructions ?Recorded carvedilol 6.25 mg tablet 6.25 mg PO BID High blood pressure 11/05/19 #60 tabs montelukast 10 mg tablet 10 mg PO HS Allergy symptoms #90 11/05/19 tabs atorvastatin 20 mg tablet 20 mg PO HS Cholesterol #90 tabs 11/06/19 benzocaine 20 % mucosal paste 1 applic mucous membrane TID PRN 05/26/22 (Orabase (benzocaine)) mouth irritation #571.2 grams pregabalin 150 mg capsule 150 mg PO TID Depression #90 caps 07/29/22 Allergies Allergy/AdvReac Type Severity Reaction Status Date / Time carbamazepine Allergy Intermediate I-ITCHING Verified 04/22/24 18:50 promethazine Allergy Mild MAKES Verified 04/22/24 18:50 HYPER PFSH PFSH Disclaimer: The information contained in this section may have been updated after the patient was seen, as this information can be updated by other users. Medical History (Updated 04/22/24 @ 20:24 by Cj Harley MD) Sciatica Obesity (BMI 30.0-34.9) Tremors of nervous system Intracerebral hemorrhage Allergic rhinitis Chronic pain Musculoskeletal pain of extremity Compression fracture of body of thoracic vertebra Social History Smoking Status: Never smoker alcohol intake: never counseling provided: none substance use type: denies use current occupational status: retired Travel in the last 8 weeks: None household members: spouse housing: half-way current occupational exposures/hazards: No caffeine: Yes ROS Obtained: Yes All systems reviewed & no additional complaints except as documented Physical Exam General General appearance: alert and in no apparent distress Respiratory Respiratory exam: Present normal lung sounds bilaterally Cardiovascular Cardiovascular exam: Present regular rate Extremities Exam Extremities exam: Present other (Left lower extremity exam there is no significant tenderness in the knee tib-fib ankle but there is tenderness in the foot across all toes primarily in the left great toe no warmth swelling skin breakdown etc. pulses normal) Neurological Exam Neurological exam: Present alert and oriented X3 Medical Decision Making Francisco Inquiry Pt receiving controlled substance: No Vital Signs: 04/22/24 18:36 Temperature 98.4 F Temperature Source Oral Pulse Rate [Left] 82 Respiratory Rate 16 Blood Pressure [Right Arm] 123/88 Blood Pressure Mean [Right Arm] 99 Blood Pressure Source [Right Arm] Automatic Cuff Blood Pressure Position [Right Arm] Sitting 02 Sat by Pulse Oximetry 95 Oxygen Delivery Method Nasal Cannula Oxygen Flow Rate (LPM) 3 Orders (Tests/Meds): ORDERS Category Date Time Status Foot XR left minimum 3 views [XR foot LT min 3V] Stat Exams 04/22/24 19:06 Completed Knee XR left 3 views [XR knee LT 3V] Stat Exams 04/22/24 19:06 Completed Tibia/fibula XR left 2 views [XR tibia fibula LT 2V] Exams 04/22/24 19:06 Completed Stat XR ankle LT 2V Stat Exams 04/22/24 19:06 Completed Medical Decision Narrative: 83-year-old female with above history and physical pain primarily in her left foot she does have limited history given her clinical status she is able to give some history but it is not completely reliable. From history and physical standpoint does not appear to be consistent with an infection or DVT she has no swelling pain seems to be localized to her foot and from a history standpoint it sounds as if she had a direct injury to this several weeks ago when the symptoms began. Will get plain films of her knee down through her foot and reassess. Reassessment 8:25 PM x-rays performed which I first interpreted which shows no definitive fracture in the knee tib-fib ankle or foot however she has severe osteoporosis/osteopenia making the interpretation difficult. She may need more advanced imaging as I cannot definitively rule out fracture. Particular this seems to be possibly a subtle abnormality or. To the joint at the distal aspect of her first metatarsal. But given her limited clinical history and limitations of the exam will advise that she follow-up with orthopedic surgery for further evaluation and discussion. She was discharged in stable condition Critical Care Critical Care Time Critical Care Time: No
[2024-04-22 20:34] VITALS: BP 116/81; PULSE 75; RESP 16; TEMP 36.8; O2SAT 93
--- NOTE | 2024-04-22 21:22 | PC.NURSE ---
This RN called to give report, no answer X 3.
== END 2024-04-22 21:26 | disposition home or self-care (01) ==
PROVIDERS: Emergency Provider Student in an Organized Health Care Education/Training Program; PCP Nurse Practitioner Family
DX: M79.662 Pain in left lower leg (principal); S99.922A Unspecified injury of left foot, initial encounter; M81.0 Age-related osteoporosis without current pathological fracture; W22.8XXA Striking against or struck by other objects, initial encounter
CPT/HCPCS: 73562; 73590; 73600; 73630; 99284

== ENCOUNTER 2024-05-01 19:22 | Emergency (ER) | payer MEDICARE, MEDICAID, SELFPAY ==
--- NOTE | 2024-05-01 19:00 | PC.NURSE ---
Lyudmila from [facility] called to give report on pt. Lyudmila states that pt has been having uncontrollable tremors to BUE and pain in her hands. The pain is now radiating into shoulders. Pt was also found to be tachycardic 114-120s, hypoxic on home O2 2LPM NC 70s & they increased O2 to 3LPM NC and sat improved to 91%. Lyudmila also report that pt has felt like she is burning up , she was found to be afebrile at 98.3. Lyudmila also reports that pt was checked for covid and was negative. Further states Ginny has been playing around with her meds and pt has had biofreeze, scheduled Tylenol, lyrica, Baclofen, Buspar, and Prednisone (pt has 1 day left of steriod). Pt was pre-registered in [facility] for this visit. Report given to oncoming shift.
--- NOTE | 2024-05-01 19:19 | XR_ITS ---
PROCEDURE INFORMATION: Exam: XR Left Elbow Exam date and time: 05/01/2024 7:35 PM Age: 83 years old Clinical indication: Pain; Elbow; Left; Additional info: Pain going down L arm TECHNIQUE: Imaging protocol: Radiologic exam of the left elbow. Views: 3 or more views. COMPARISON: CR XR ELBOW LT MIN 3V 05/01/2024 7:35 PM FINDINGS: Bones/joints: No acute fracture. Diffuse osteopenia is identified. Soft tissues: Normal. IMPRESSION: No evidence for acute fracture.
--- NOTE | 2024-05-01 19:19 | XR_ITS ---
PROCEDURE INFORMATION: Exam: XR Left Hand Exam date and time: 05/01/2024 7:35 PM Age: 83 years old Clinical indication: Pain; Hand; Left; Additional info: Pain going down L arm TECHNIQUE: Imaging protocol: Radiologic exam of the left hand. Views: 3 or more views. COMPARISON: CR XR FOREARM LT 2V 05/01/2024 7:35 PM FINDINGS: Bones/joints: No obvious fracture identified although suboptimal positioning limits visibility of the proximal phalangeal regions of the index, long and ring fingers. Also overlying rings identified. Diffuse osteopenia is identified. Moderate uniform joint space narrowing STT joint. Soft tissues: Normal. IMPRESSION: 1. No obvious fracture identified although suboptimal positioning limits visibility of the proximal phalangeal regions of the index, long and ring fingers. Also overlying rings identified. 2. Moderate uniform joint space narrowing STT joint.
--- NOTE | 2024-05-01 19:19 | XR_ITS ---
PROCEDURE INFORMATION: Exam: XR Left Forearm Exam date and time: 05/01/2024 7:35 PM Age: 83 years old Clinical indication: Pain; Lower or forearm; Left; Additional info: Pain going down L arm TECHNIQUE: Imaging protocol: Radiologic exam of the left forearm. Views: 2 views. COMPARISON: CR XR FOREARM LT 2V 05/01/2024 7:35 PM FINDINGS: Bones/joints: Diffuse osteopenia is identified. No acute fracture. Soft tissues: Normal. IMPRESSION: No evidence for acute fracture.
--- NOTE | 2024-05-01 19:19 | XR_ITS ---
PROCEDURE INFORMATION: Exam: XR Chest Exam date and time: 05/01/2024 7:35 PM Age: 83 years old Clinical indication: Pain; Chest pressure; Additional info: Pain going down L arm TECHNIQUE: Imaging protocol: Radiologic exam of the chest. Views: 1 view. COMPARISON: CR XR CHEST PORTABLE 05/01/2024 7:35 PM FINDINGS: Lungs: Moderate scarring fibrotic change within the lung bases. No definite acute infiltrates. Pleural spaces: Unremarkable. No pleural effusion. No pneumothorax. Heart/Mediastinum: Unremarkable. No cardiomegaly. Bones/joints: Unremarkable. IMPRESSION: Moderate scarring fibrotic change within the lung bases. No definite acute infiltrates.
--- NOTE | 2024-05-01 19:19 | XR_ITS ---
PROCEDURE INFORMATION: Exam: XR Left Shoulder Exam date and time: 05/01/2024 7:35 PM Age: 83 years old Clinical indication: Pain; Shoulder; Left; Additional info: Pain going down L arm TECHNIQUE: Imaging protocol: Radiologic exam of the left shoulder. Views: 2 or more views. COMPARISON: CR XR SHOULDER LT MIN 2V 05/01/2024 7:35 PM FINDINGS: Bones/joints: Diffuse osteopenia is identified. No acute fracture. Soft tissues: Normal. IMPRESSION: No evidence for acute fracture.
--- NOTE | 2024-05-01 19:19 | XR_ITS ---
PROCEDURE INFORMATION: Exam: XR Left Humerus Exam date and time: 05/01/2024 7:35 PM Age: 83 years old Clinical indication: Pain; Upper arm; Left; Additional info: Pain going down L arm TECHNIQUE: Imaging protocol: Radiologic exam of the left humerus. Views: 2 or more views. COMPARISON: CR XR SHOULDER LT MIN 2V 05/01/2024 7:35 PM FINDINGS: Bones/joints: Normal. Soft tissues: Normal. IMPRESSION: No acute findings.
--- NOTE | 2024-05-01 19:19 | XR_ITS ---
PROCEDURE INFORMATION: Exam: XR Left Foot Exam date and time: 05/01/2024 7:35 PM Age: 83 years old Clinical indication: Pain; Foot; Left TECHNIQUE: Imaging protocol: Radiologic exam of the left foot. Views: 3 or more views. COMPARISON: CR XR FOOT LT MIN 3V 04/22/2024 7:23 PM FINDINGS: Bones/joints: Severe diffuse osteopenia. Hallux valgus with bunion formation. Hammertoe deformities 2nd through 5th digits. There is a oblique oriented region of linear sclerosis within the 4th metatarsal head neck junction. Not confirmatory but could represent a subacute stress fracture. Soft tissues: Normal. IMPRESSION: 1. There is a oblique oriented region of linear sclerosis within the 4th metatarsal head neck junction. Not confirmatory but could represent a subacute stress fracture. 2. Severe diffuse osteopenia. Hallux valgus with bunion formation. 3. Hammertoe deformities 2nd through 5th digits.
--- NOTE | 2024-05-01 19:19 | XR_ITS ---
PROCEDURE INFORMATION: Exam: XR Left Wrist Exam date and time: 05/01/2024 7:35 PM Age: 83 years old Clinical indication: Pain; Wrist; Left; Additional info: Pain going down L arm TECHNIQUE: Imaging protocol: Radiologic exam of the left wrist. Views: 3 or more views. COMPARISON: CR XR WRIST LT MIN 3V 05/01/2024 7:35 PM FINDINGS: Bones/joints: Severe diffuse osteopenia. No acute fracture. Soft tissues: Normal. IMPRESSION: 1. No evidence for acute fracture. 2. Severe diffuse osteopenia
--- NOTE | 2024-05-01 19:21 | ECG_ITS ---
APPROVED REPORT Exam: Resting ECG HR:97 bpm ECG Measurements Heart Rate 97 AXES GA 143 P 59 QRSd 76 QRS 24 QT 353 T 67 QTc 407 Conclusion SINUS RHYTHM Motion artifact degraded study BORDERLINE ECG UNCONFIRMED REPORT Electronically signed by : WOLFGANG MERRILL, 05/01/2024 23:51:51
[2024-05-01 19:22] VITALS: BP 158/94; PULSE 103; RESP 20; TEMP 37.9; O2SAT 93; BMI 30.7
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
--- OUTSIDE RECORDS SUMMARY | 2024-05-01 19:30 | XMS_ITS | Continuity of Care Document ---
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 [address] [facility], [address], [place], [place], [id number], [place]. tel:[phone] [place] [address], [address] [facility] 300, [place], [place], [id number], tel:[phone] [place] Complete loss of teeth, unspecified cause, unspecified classEncounte r for fitting and adjustment of dental prosthetic device 4 Damian Kapadia. [address] [facility], [address], [place], [place], [id number], [place]. tel:[phone] Referring Provider: Ricardo Pool. [address] [place] [address], [address] [facility] 300, [place], [place], [id number], tel:[phone] Parker Encounter for dental examination and cleaning without abnormal findings 4 Jan Tim. [address] [facility], [address], [place], [place], [id number], [place]. tel:[phone] Referring Provider: Ricardo Pool. [address] [place] [address], [address] [place] [address] 300, [place], [place], [id number], tel:[phone] Parker No Information [address] Devine[address] [place] [address], [address], [place], [facility], [place]. tel:[phone] Referring Provider: Ricardo Pool. [address] [place] [address], [address] [place] [address], [place], [place], [id number], [place] tel:[phone] Parker Presbyopia January-0 4 Anthony Foster. , [place]. [address] [place] [address], [address] [facility] 300, [place], [place], [id number], [place] tel:[phone] Parker Nail dystrophyCorn s and callositiesOt her specified peripheral vascular diseasesTinea unguium January- 4 James Mitchell. [address] [facility], [address], [place], [address], [place]. Referring Provider: Anirudh Bear. [address] [place] [address], [address] [place] [address], [place], [place], [id number], [place] tel:[phone] Parker Glaucoma, suspect (chief complaint) Cataract (chief complaint) Combined forms of age-related cataract, bilateralOpen angle with borderline findings, low risk, bilateralPres byopia 4 Anthony Foster. , [place]. Referring Provider: Ricardo Pool. [facility], [address] [place] [address], [place], [place], [id number], [place] tel:[phone] Parker Encounter for dental examination and cleaning without abnormal findings 4 uRdy Das. [place], [place]. tel:[phone] Referring Provider: Ricardo Pool. [address] [place] [address], [address] [place] [address] 300, [place], [place], [id number], [place] tel:[phone] Parker Encounter for fitting and adjustment of dental prosthetic device [id number] [place] [address], [address], [place], [address], [place]. tel:[phone] Referring Provider: Ricardo Pool. [address] [place] [address], [address] [place] [address], [place], [place], [id number], [place] tel:[phone] Parker Nail dystrophyOthe r specified peripheral vascular diseasesTinea unguium 4 James Mitchell. [address] [facility], [address], [place], [address], [place]. Referring Provider: Anirudh Bear. [address] [place] [address], [address] [place] [address], [place], [place], [id number], [place] tel:[phone] Parker No Information 4 James Mitchell. [id number] [place] [address], [address], [place], [address], [place]. [address] [place] [address], [address] [place] [address], [place], [place], [id number], [place] tel:[phone] Parker Sensorineural hearing loss, bilateral 4 [place]. [place], [place]. Referring Provider: Ricardo Pool. NURSING [facility] [address] [place] [address], [address] [facility] [address], [place], [place], [id number], [place] tel:[phone] Parker hearing loss (chief complaint) Unspecified hearing loss, bilateral 0 3 [place] polo Cinthia. [address] [facility], [address], [place], [address], [place]. Referring Provider: Ricardo Pool. [address] [place] [address], [address] [place] [address], [place], [place], [id number], [place] tel:[phone] Parker Complete loss of teeth, unspecified cause, unspecified class 3 Michael Christian. [address] [facility], [address], [place], [place], [id number], [place]. tel:[phone] Referring Provider: Ricardo Pool. [facility] MDM [address] [place] [address], [address] [place], [place] [address]te 300, [place], [place], [id number], [place] tel:[phone] Parker Glaucoma, suspect (chief complaint) Combined forms of age-related cataract, bilateralOpen angle with borderline findings, low risk, bilateral Jun-2 3 Candido Kapadia. [address] [facility], [address], [place], [address], [place]. Referring Provider: Ricardo Pool. [address] [place] [address], [address] [place] [address], [place], [place], [id number], [place] tel:[phone] Parker No Information Jun-2 3 Mick Wilkerson. [place], [place], [id number], [place]. tel:[phone] Referring Provider: Ricardo Pool. [address] [place] [address], [address] [place] [address] 300, [place], [place], [address], [place] tel:[phone] Parker Nail dystrophyOthe r specified peripheral vascular diseasesTinea unguium Sep-2 3 James Mitchell. [address] [facility], [address], [place], [address], [place]. [facility], [address] [place] [address], [place], [place], [id number], tel:[phone] Parker Encounter for dental examination and cleaning without abnormal findings Sep-0 3 [place], [place]. Referring Provider: Ricardo Pool. [facility], [address] [place] [address], [place], [place], [id number], [place] tel:[phone] Parker Nail dystrophyOthe r specified peripheral vascular diseasesTinea unguium Bob-2 3 James Mitchell. [address] [facility], [address], [place], [address], [place]. Referring Provider: Anirudh Bear. [facility], [address] [place] [address] 300, [place], [place], [id number], [place] tel:[phone] Parker Glaucoma, suspect (chief complaint) Combined forms of age-related cataract, bilateralOpen angle with borderline findings, low risk, bilateral January-2 3 Candido Kapadia. [address] [place] [address], [facility], [place], [address], [place]. Referring Provider: Ricardo Pool. [facility], [address] [place] [address], [place], [place], [id number], [place] tel:[phone] Parker Encounter for dental examination and cleaning without abnormal findings January-0 3 [place], [place]. Referring Provider: Ricardo Pool. [facility], [address] [place] [address], [place], [place], [id number], [place] tel:[phone] Parker Other specified disorders of Eustachian tube, right ear Mar-2 - 3 [place], [place]. Referring Provider: Ricardo Pool. [facility], [address] [place] [address] 300, [place], [place], [id number], [place] tel:[phone] Parker Other specified peripheral vascular diseasesTinea unguium Nov- 3 James Mitchell. [address] [facility], [address], [place], [address], . Referring Provider: Anirudh Bear. [address] [place] [address], [address] [place] [address], [place], [place], [id number], tel:[phone] Parker hearing loss (chief complaint) Impacted cerumen, right ear Feb-0 3 [place] [employer] Cinthia. [address] [place] [address] Rd, [address], [place], [address], [place]. Referring Provider: Ricardo Pool. [facility], [address] [place] [address] 300, [place], [place], [id number], tel:[phone] Parker No Information Oct-0 3 [place] Cinthia. [address] [place] [address], [address], [place], [address], [place]. [facility], [address] [place] [address], [place], [place], [id number], tel:[phone] Parker Cataract (chief complaint) Combined forms of age-related cataract, bilateralOpen angle with borderline findings, low risk, bilateral Aug- 2 Anthony Martnisa. , [place]. Referring Provider: Ricardo Pool. [address] [place] [address], [address] [place] [address], [place], [place], [id number], [place] tel:[phone] Parker Tinea unguiumOther specified peripheral vascular diseasesNail dystrophy Aug-0 2 James Mitchell. [address] [facility], [address], [place], [address], [place]. Referring Provider: Anirudh Dinero. [facility], [address] [place] [address] 300, [place], [place], [id number], [place] tel:[phone] Parker Impacted cerumen, right ear Jul- 2 Yuri Ovalle. , [place]. Referring Provider: Ricardo Pool. [address] [place] [address], [address] [facility] 300, [place], [place], [address], tel:[phone] Parker Tinea unguiumOther specified peripheral vascular diseases 2 James Mitchell. [address] [facility], [address], [place], [address], [place]. Referring Provider: Ricardo Pool. [address] [place] [address], [address] [place] [address], [place], [place], [id number], tel:[phone] Parker Cataract (chief complaint) Combined forms of age-related cataract, bilateralOpen angle with borderline findings, low risk, bilateralDry eye syndrome of bilateral lacrimal glands 2 Candido Kapadia. [address] [facility], [address], [place], [address], [place]. Referring Provider: Ricardo Pool. [address] [place] [address], [address] [place] [address], [place], [place], [id number], tel:[phone] Parker Encounter for dental exam and cleaning w/o abnormal findings 2 [facility]. , [place]. Referring Provider: Ricardo Pool. [address] [place] [address], [address] [place] [address], [place], [place], [id number], tel:[phone] [facility] No Information 9 [place], [place]. tel:[phone] [place] [address], [address] [place] [address] 300, [place], [place], [id number], [place] tel:[phone] [facility] Medical eye problem (chief complaint) Age-related nuclear cataract, bilateralPres byopia 9 Jean Claude Escobedo. [address] [place], [place], [facility], . tel:[phone] Referring Provider: Ric Canseco. Family History Family Member Type Diagnosis Age At Onset No Information Payers Payer name Insurance type Covered libertarian ID Authoriza tion(s) [facility] [place] [id number] S Medicaid [place] [id number] Social History Type Description Quantity Date Captured Comments Sex Female Smoking Status No Information Chief Complaint And Reason For Visit No Information Reason For Referral Reason For Referral No Information Plan Of Treatment Date Type Action Status Appointment Julia Khan BOOKED Appointment ErinRandyie BOOKED Patient Education Learning About Dental Care [...] loss, bilateral follow up in 12-15 m [facility] or sooner if needed. Related to [...] angle with borderline findings, low risk, bilateral Follow up - We will schedule a follow up appointment in 6-9 months for a dilated fundus exam. Related to Open angle with borderline findings, low risk, bilateral Impression/Plan - Ca taracts are visually significant; Please schedule for cataract evaluation with RAMEZ Related to Combined forms of age-related cataract, bilateral All dystrophic nails were debrided in length and thickness as needed to prevent pain and other symptoms. Related to Nail dystrophy Toenails 1 b/l were debrided in length and thickness without incident. Follow up in 2-3 months. Related to Tinea unguium Toenails 1 b/l were debrided in length and thickness without incident. Follow up in 2-3 months. Related to Tinea unguium All dystrophic nails were debrided in length and thickness as needed to prevent pain and other symptoms. Related to Nail dystrophy Impression/Plan - Sami rderline Glaucoma findings; No treatment indicated at this time; Further testing needed to assess risk of developing glaucoma. Related to Open angle with borderline findings, low risk, bilateral Impression/Plan - Ca taracts are visually significant; Please schedule for cataract evaluation with RAMEZ, Related to Combined forms of age-related cataract, bilateral See prn for complaints Related t [...] angle with borderline findings, low risk, bilateral Follow up - Return i n 6-9 months for IOP check. Related to Open angle with borderline findings, low risk, bilateral Impression/Plan - Ca taracts are visually significant; Please schedule for cataract evaluation with Deli Cook of facility choice. Related to Combined forms of age-related cataract, bilateral All dystrophic nails were debrided in length and thickness as needed to prevent pain and other symptoms. Related to Nail dystrophy Toenails 1 b/l were debrided in length and thickness without incident. Follow up in 2-3 months. Related to Tinea unguium Refer for cerumen re moval in the [...] forms of age-related cataract, bilateral Impression/Plan - +2 .75 or +3.00 readers Related to Presbyopia Impression/Plan Related to Age-r elated nuclear cataract, bilateral Impression/Plan - Ca taracts are moderate and are affecting visual acuity; however, no treatment recommended at this time. We will monitor for progression. Related to Age-related nuclear cataract, bilateral Assessments Type Assessment Date No Information Patient Care Teams Name Effective Dates (start - stop) Status Members No Information
--- OUTSIDE RECORDS SUMMARY | 2024-05-01 19:30 | XMS_ITS | Clinical Summary ---
Author Organization [facility] Address [address] [place] [address] Phone Care Team Providers Care Cold Strip Roller Name Role Phone Marilynn BARBA, Jose Corona [...]
[2024-05-01 19:32] VITALS: BP 158/94; PULSE 102; RESP 27; O2SAT 91
[2024-05-01 19:39] LABS: VBG Base Excess 1.3 mmol/L (-2.4-2.3); VBG HCO3 25.4 mmol/L (23-30); VBG Oxygen Saturation 95.3 % (50-70); VBG PCO2 38.1 mmol/L (35-51); VBG PH 7.44 mmol/L (7.31-7.41); VBG PO2 73.4 mmol/L (28-40); VBG Total CO2 26.6 mmol/L (23-27)
[2024-05-01 19:41] LABS: Lactate Venous 4.2 mmol/L (0.4-2.0)
[2024-05-01] MEDS: ASPIRIN 81MG CHEWABLE TABLET 324 MG PO (19:47)
[2024-05-01] MEDS: ACETAMINOPHEN 1,000MG/100ML VIAL 1000 MG IV (19:47)
[2024-05-01 19:51] LABS: Alanine Aminotransferase 28 U/L (12-78); Albumin Level 4.5 g/dl (3.5-5.0); Albumin/Globulin Ratio 1.2 (1.1-1.8); Alkaline Phosphatase 72 U/L (38-126); Anion Gap 18.2 mEq/L (5-15); Aspartate Amino Transferase 40 U/L (14-36); Bilirubin,Total 0.6 mg/dl (0.2-1.3); Blood Urea Nitrogen 31 mg/dl (7-17); Calcium 9.2 mg/dl (8.4-10.2); Carbon Dioxide 26 mmol/L (22.0-30.0); Chloride 101 mmol/L (98-107); Creatine Kinase 81 U/L (30-135); Creatinine Clearance Estimated 44 mL/min (50-200); Estimated Glomerular Filt Rate 47 ml/min (>60); GFR (African American) 57 ML/MIN (>60); Globulin 3.7 g/dL (1.3-3.2); Glucose 113 mg/dl (74-100); Magnesium 1.9 mg/dl (1.6-2.3); Potassium 5.2 mmoL/L (3.5-5.1); Sodium 140 mmol/L (136-145); Total Protein,Serum 8.2 g/dl (6.3-8.2)
[2024-05-01] MEDS: RINGERS SOLUTION,LACTATED 500 ML 999 ML IV ×2 (19:52→20:21)
[2024-05-01 19:55] LABS: D-Dimer 0.76 ug/mL (0.0-0.5)
[2024-05-01 19:58] LABS: Hematocrit 49.9 % (37.0-47.0); Hemoglobin 15.4 g/dL (12.2-16.2); Mean Corpuscular HGB Conc 30.8 g/dL (31.8-35.4); Mean Corpuscular Hemoglobin 34.1 pg (27.0-31.2); Mean Corpuscular Volume 110.6 fl (81-99); Red Blood Count 4.51 M/mm3 (4.20-5.40); Red Cell Distribution Width 15.1 % (11.5-17.5); White Blood Count 8.8 K/mm3 (4.8-10.8)
[2024-05-01 19:59] LABS: Basophils # 0.1 K/mm3 (0-0.2); Basophils % 0.7 % (0.1-2.0); Eosinophils % 0.4 % (0.1-12.0); Lymphocytes # 2.3 K/mm3 (0.7-4.5); Lymphocytes % 26.6 % (10-50); Mean Platelet Volume 8.5 fl (7.4-10.4); Monocytes # 0.5 K/mm3 (0.1-1.0); Monocytes % 5.7 % (1.7-9.3); Neutrophils # 5.8 K/mm3 (1.8-7.8); Neutrophils % 65.7 % (37.0-80.0); Platelet Count 304 K/mm3 (142-424)
[2024-05-01 20:00] VITALS: BP 150/78; PULSE 102; RESP 22; O2SAT 92
[2024-05-01 20:09] LABS: T4 (Thyroxine) 16.9 ug/dl (5.53-11.0)
[2024-05-01 20:22] LABS: Thyroid Stimulating Hormone 4.89 uIU/mL (0.465-4.68)
[2024-05-01 20:40] LABS: Coronavirus 19, PCR Not Detected (NotDetected); Influenza A, PCR Not Detected (NotDetected); Influenza B, PCR Not Detected (NotDetected)
[2024-05-01 20:40] LABS: Microscopic, Urine URINE MICROSCOPIC (MICROSCOPIC)
[2024-05-01 20:49] LABS: Troponin I < 0.01 ng/ml (0.00-0.034)
[2024-05-01 21:00] LABS: Appearance,Urine CLEAR (Clear); Blood, Urine Negative (Negative); Color,Urine YELLOW (Yellow); Glucose,Urine (UA) Negative (Negative); Ketones,Urine 1+ (Negative); Leukocyte Esterase,Urine Negative (Negative); Nitrate,Urine Negative (Negative); PH,Urine 5.5 (5.0-8.5); Protein,Urine TRACE (Negative); Specific Gravity, Urine >= 1.030 (1.005-1.030)
[2024-05-01 21:05] LABS: C-Reactive Protein 3.8 mg/L (0-4)
[2024-05-01 21:05] LABS: Bilirubin,Urine Negative (Negative)
[2024-05-01 21:09] LABS: Bacteria,Urine 1+ /lpf; Mucus,Urine 1+ /lpf
[2024-05-01 21:12] LABS: Troponin I < 0.01 ng/ml (0.00-0.034)
--- NOTE | 2024-05-01 21:46 | ECG_ITS ---
APPROVED REPORT Exam: Resting ECG HR:77 bpm ECG Measurements Heart Rate 77 AXES QRSd 81 QRS 26 QT 298 T 45 QTc 330 Conclusion Motion artifact secondary to tremor Likely normal sinus rhythm LOW QRS VOLTAGE IN PRECORDIAL LEADS [QRS DEFLECTION < 1.0 mV IN CHEST LEADS] NONSPECIFIC T-WAVE ABNORMALITY Electronically signed by : WOLFGANG MERRILL, 05/01/2024 23:50:04
[2024-05-01 23:01] LABS: Troponin I 0.01 ng/ml (0.00-0.034)
[2024-05-01 23:13] LABS: Reflex Lactic Add Lactic Reflex
--- NOTE | 2024-05-01 23:30 | PC.NURSE ---
Pt and family informed EMS was notified for transport back to [facility], that it would be a awhile before EMS could transport due to emergent runs, verbalized understanding
--- NOTE | 2024-05-02 02:01 | PC.NURSE ---
Pt repositioned in bed for comfort, continues to await transport back to [facility]
--- NOTE | 2024-05-02 02:02 | PC.NURSE ---
Report called to Nurse at [facility]
[2024-05-02 02:17] VITALS: BP 133/65; PULSE 68; RESP 18; TEMP 36.6; O2SAT 97
--- NOTE | 2024-05-02 17:23 | PC.NURSE ---
URINE CULTURE DISCUSSED WITH DR MERRILL, ORDERS RECEIVED AT THIS TIME [facility] NOTIFIED OF NEW MED ORDER FOR ABX FOR UTI. RX SENT TO PHARMACY
== END 2024-05-02 02:19 | disposition home or self-care (01) ==
PROVIDERS: Emergency Provider Emergency Medicine; PCP Internal Medicine Adolescent Medicine
DX: E86.0 Dehydration (principal); R74.02 Elevation of levels of lactic acid dehydrogenase [LDH]; E87.3 Alkalosis; R09.02 Hypoxemia; N39.0 Urinary tract infection, site not specified; B96.1 Klebsiella pneumoniae [K. pneumoniae] as the cause of diseases classified elsewhere; N17.9 Acute kidney failure, unspecified; M79.602 Pain in left arm; R25.1 Tremor, unspecified; R00.0 Tachycardia, unspecified; R50.9 Fever, unspecified; J44.9 Chronic obstructive pulmonary disease, unspecified; I11.9 Hypertensive heart disease without heart failure; I25.10 Atherosclerotic heart disease of native coronary artery without angina pectoris; E78.5 Hyperlipidemia, unspecified; Z95.5 Presence of coronary angioplasty implant and graft
CPT/HCPCS: 71045; 73030; 73060; 73080; 73090; 73110; 73130; 73630; 80050; 80053; 81001; 82550; 82803; 83735; 84145; 84436; 84443; 84484; 85025; 85378; 86140; 87040; 87086; 87088; 87186; 87636; 93005; 96374; 99285; J0131; J7120

== ENCOUNTER 2024-08-06 08:45 | Outpatient (CLI) | payer MEDICARE, MEDICAID, SELFPAY | END 2024-08-06 23:59 | disposition home or self-care (01) | LOC: LAB 08:47 → LAB.DROPOF 13:59 | PROVIDERS: PCP Internal Medicine Adolescent Medicine; Visit Provider Nurse Practitioner Family | DX: Z02.9 Encounter for administrative examinations, unspecified (principal) ==

== ENCOUNTER 2024-08-06 09:13 | Emergency (ER) | payer MEDICARE, MEDICAID, SELFPAY ==
[2024-08-06] VITALS (15 sets, daily range): BP systolic 62–136; BP diastolic 40–90; PULSE 45–147; RESP 19–40; TEMP 36.5–37.4; O2SAT 3–98; BMI 29.9
--- NOTE | 2024-08-06 09:20 | ECG_ITS ---
APPROVED REPORT Exam: Resting ECG HR:161 bpm ECG Measurements Heart Rate 161 AXES QRSd 98 QRS 26 QT 204 T 0 QTc 293 Conclusion ATRIAL FIBRILLATION WITH RAPID VENTRICULAR RESPONSE NONSPECIFIC ST & T-WAVE ABNORMALITY No STEMI Electronically signed by : FOUZIA MASON, 08/06/2024 15:34:22
--- NOTE | 2024-08-06 09:27 | XR_ITS ---
PROCEDURE INFORMATION: Exam: XR Chest Exam date and time: 08/06/2024 10:23 AM Age: 83 years old Clinical indication: Shortness of breath; Additional info: Hypoxia TECHNIQUE: Imaging protocol: Radiologic exam of the chest. Views: 1 view. COMPARISON: CR XR CHEST PORTABLE 08/06/2024 10:23 AM FINDINGS: Lungs: There are bilateral multifocal pulmonary opacities. Pleural spaces: Unremarkable. No pleural effusion. No pneumothorax. Heart/Mediastinum: Cardiomegaly noted. Bones/joints: Unremarkable. IMPRESSION: Findings can be attributed to acute interstitial pneumonia/COPD exacerbation in the appropriate clinical context.
--- NOTE | 2024-08-06 09:30 | CT_ITS ---
PROCEDURE INFORMATION: Exam: CTA Chest With Contrast Exam date and time: 08/06/2024 10:17 AM Age: 83 years old Clinical indication: Shortness of breath; Additional info: Hypoxia tachy hypotensive TECHNIQUE: Imaging protocol: Computed tomographic angiography of the cest with contrast. Exam focused on the arteries. 3D rendering (Not supervised by radiologist): MIP and/or 3D reconstructed images were created by the technologist. Radiation optimization: All CT scans at this facility use at least one of these dose optimization techniques: automated exposure control; mA and/or kV adjustment per patient size (includes targeted exams where dose is matched to clinical indication); or iterative reconstruction. Contrast material: ISOVUE 370; Contrast volume: 70 ml; Contrast route: INTRAVENOUS (IV); COMPARISON: CT CHEST WO CON 12/20/2019 5:26 PM FINDINGS: Pulmonary arteries: The main pulmonary trunk is prominent, which can be seen in the context of pulmonary hypertension. No evidence of filling defects to suggest pulmonary emboli. Aorta: Unremarkable. No aortic aneurysm. No aortic dissection. Lungs: Advanced centrilobular and paraseptal emphysema with upper lobe gradient. Moderate interstitial changes with lower lobe gradient noted. There are multifocal, bilateral ground-glass opacities and consolidations more notable in the dependent aspect of both lungs. Pleural spaces: Unremarkable. No pneumothorax. No pleural effusion. Heart: Cardiomegaly attributable to multi cardiac chamber enlargement. Heart RV/LV ratio: The RV/LV ratio is less than 1. Lymph nodes: Unremarkable. No enlarged lymph nodes. Adrenal glands: There is nodular thickening of the left adrenal gland. Bones/joints: Unremarkable. No acute fracture. Soft tissues: Unremarkable. IMPRESSION: 1. No evidence of filling defects to suggest pulmonary emboli. 2. Acute interstitial pneumonia/COPD exacerbation.
--- NOTE | 2024-08-06 09:32 | ED_ITS ---
Discharge Plan Disposition Patient Disposition: Xfer Short-Term Hosp Condition: Critical Prescriptions Prescriptions: No Action donepezil 5 mg tablet 10 mg PO DAILY baclofen 10 mg tablet 5 mg PO BID montelukast 10 mg tablet 10 mg PO HS Qty: 90 0RF atorvastatin 20 mg tablet 20 mg PO HS Qty: 90 2RF Orabase (benzocaine) 20 % paste 1 applic mucous membrane TID PRN (Reason: mouth irritation) Qty: 571.2 0RF pregabalin 150 mg capsule 150 mg PO TID Qty: 90 5RF ipratropium-albuterol 0.5 mg-3 mg(2.5 mg base)/3 mL solution for nebulization 3 ml IH Q6HP PRN (Reason: SHORTNESS OF BREATH) Patient Comments: USE 1 VIAL VIA NEBULIZER Q 6 H PRN levetiracetam 500 MG tablet 500 mg PO BID levothyroxine 88 MCG tablet 100 mcg PO DAILY ropinirole 0.5 mg tablet 2 mg PO HS ketotifen fumarate 10 ML drops 1 drp OP HS fluticasone propionate 9.9 ML spray,suspension 1 spray NS DAILY loratadine 10 MG tablet 10 mg PO DAILY spironolactone 25 MG tablet 25 mg PO DAILY furosemide 20 MG tablet 20 mg PO DAILY pantoprazole 40 mg tablet,delayed release (DR/EC) 40 mg PO DIRECTED docusate sodium 250 mg Capsule 250 mg PO BID carvedilol 6.25 mg tablet 3.125 mg PO BID cefdinir 300 mg capsule 300 mg PO BID 10 Days Qty: 20 0RF Referrals Follow up/Referrals: Sunitha Johnston APRN [Primary Care Provider] - See instructions Clinical Impressions Clinical Impression: Septic shock, Paroxysmal A-fib, Acidosis, lactic Print Language Print Language: Panamanian Discharge ED Provider: Sukhjinder Caceres HPI General Chief Complaint: Shortness of Breath/Dyspnea Stated Complaint: low oxygen Time Seen by Provider: 08/06/24 09:20 History of Present Illness HPI narrative: 83-year-old female with a history of previous hemorrhagic stroke, tremor, hypertension, hyperlipidemia, CAD, COPD, pulmonary hypertension presents to the ER from custodial for concerns of hypoxia. Patient typically wears 3 L nasal cannula, she was found to be saturating in the 70s on room air, EMS was called and found her in the mid to upper 80s on room air. She was placed on 10 L mask and improved to the low 90s. She received DuoNeb with EMS per the report. Patient reports no pain. Family wanted her brought to the ER for further evaluation. On discussion with family, they report patient has chronic severe deficits, unable to ambulate, left-sided weakness since her strokes. They report in the last week she has seemed ill and been on a steady decline. They report they were asking the custodial repeatedly to have her evaluated but reportedly they did nothing. Family reports patient has been slightly more confused but very close to her baseline aside from being more tired than normal.. Related Data Home Medications ?Medication ?Instructions ?Recorded ?Confirmed ipratropium 0.5 mg-albuterol 3 mg 3 ml inhalation Q6HP PRN SHORTNESS 12/11/19 05/01/24 (2.5 mg base)/3 mL nebulization OF BREATH soln levetiracetam 500 mg tablet 500 mg PO BID SEIZURES 12/11/19 05/01/24 levothyroxine 88 mcg tablet 100 mcg PO DAILY HYPOTHYROIDSIM 12/11/19 05/01/24 baclofen 10 mg tablet 5 mg PO BID muscle spasm 06/15/20 05/01/24 donepezil 5 mg tablet 10 mg PO DAILY dementia 06/15/20 05/01/24 ropinirole 0.5 mg tablet 2 mg PO HS rls 06/15/20 05/01/24 fluticasone propionate 50 1 spray intranasal DAILY Allergy 04/08/21 05/01/24 mcg/actuation nasal symptoms spray,suspension furosemide 20 mg tablet 20 mg PO DAILY Fluid 04/08/21 05/01/24 ketotifen fumarate 0.025 % (0.035 1 drp ophthalmic (eye) HS itchy 04/08/21 05/01/24 %) eye drops watery eyes loratadine 10 mg tablet 10 mg PO DAILY Allergy symptoms 04/08/21 05/01/24 spironolactone 25 mg tablet 25 mg PO DAILY fluid 04/08/21 05/01/24 carvedilol 6.25 mg tablet 3.125 mg PO BID High blood pressure 05/01/24 05/01/24 docusate sodium 250 mg capsule 250 mg PO BID 05/01/24 05/01/24 pantoprazole 40 mg tablet,delayed 40 mg PO DIRECTED 05/01/24 05/01/24 release Previous Rx's ?Medication ?Instructions ?Recorded montelukast 10 mg tablet 10 mg PO HS Allergy symptoms #90 11/05/19 tabs atorvastatin 20 mg tablet 20 mg PO HS Cholesterol #90 tabs 11/06/19 benzocaine 20 % mucosal paste 1 applic mucous membrane TID PRN 05/26/22 (Orabase (benzocaine)) mouth irritation #571.2 grams pregabalin 150 mg capsule 150 mg PO TID Depression #90 caps 07/29/22 cefdinir 300 mg capsule 300 mg PO BID 10 days #20 caps 05/02/24 Allergies Allergy/AdvReac Type Severity Reaction Status Date / Time carbamazepine Allergy Intermediate I-ITCHING Verified 04/22/24 18:50 promethazine Allergy Mild MAKES Verified 04/22/24 18:50 HYPER PFSH PFS Disclaimer: The information contained in this section may have been updated after the patient was seen, as this information can be updated by other users. Medical History Sciatica Obesity (BMI 30.0-34.9) Tremors of nervous system Intracerebral hemorrhage Allergic rhinitis Chronic pain Musculoskeletal pain of extremity Compression fracture of body of thoracic vertebra Social History Smoking Status: Never smoker alcohol intake: never counseling provided: none substance use type: denies use current occupational status: retired Travel in the last 8 weeks: None household members: spouse housing: custodial current occupational exposures/hazards: No caffeine: Yes Other Medical History Have you received the Flu Vaccine for this season: Yes Have you received the Pneumonia Vaccine: Yes ROS Obtained: Yes Systems reviewed as appropriate & no additional complaints except as documented Constitutional Constitutional: Denies chills, Denies fever(s), Denies headache(s) and Reports weakness (Generalized, patient also has baseline left-sided deficits) Eyes Eyes: Denies change in vision ENT Ears, Nose, Mouth, and Throat: Denies dizziness, Denies headache(s), Denies nasal congestion and Denies sore throat Cardiovascular Cardiovascular: Denies chest pain, Reports dyspnea and Denies leg edema Respiratory Respiratory: Reports cough and Reports dyspnea Gastrointestinal Gastrointestingal: Denies abdominal pain, constipation, diarrhea, nausea or vomiting Genitourinary Female Genitourinary: Denies dysuria Musculoskeletal Musculoskeletal: Denies arthralgias, Denies myalgias, Denies numbness and Denies tingling Integumentary/Breasts Skin/Breast: Denies change in pigmentation Neurologic Neurologic: Denies dizziness, Denies headache(s), Denies numbness, Denies tingling and Reports weakness (Generalized, patient also has baseline left-sided deficits) Physical Exam General General appearance: alert and in no apparent distress Comment: chronically ill appearing Head Head exam: atraumatic and normocephalic Eye Eye exam: Present EOMI; Absent PERRL (L pupil 4mm, R pupil 2mm, equally reactive bilaterally to light and accommodation) ENT ENT exam: Present mucous membranes moist Neck Neck exam: Present normal inspection and full ROM Chest Chest inspection: Present symmetric chest wall rise Respiratory Respiratory exam: Absent normal lung sounds bilaterally (Rhonchi and rales throughout), respiratory distress, wheezes or stridor Cardiovascular Cardiovascular exam: Present tachycardia and irregular rhythm Abdominal Exam Abdominal exam: Present soft and distention; Absent tenderness, guarding or rebound Extremities Exam Extremities exam: Present full ROM Neurological Exam Neurological exam: Present alert, oriented X3 and motor sensory deficit (Patient has left-sided deficits consistent with previous stroke as well as left-sided facial droop) Psychiatric Psychiatric exam: Present normal affect and normal mood Skin Skin exam: Present warm and dry HEART Score HEART Score HEART Score assessment performed?: Yes History (anamnesis): Slightly suspicious ECG: Non-specific disturbance Age: >65 years Risk factors: 3 or more risk factors Troponin: > 3x normal limit HEART Score: 7 Critical Care Critical Care Time Critical Care Time: Yes Attestation: On 08/06/24, the high probability of a clinically significant, sudden or life threatening deterioration of the following system(s) (cardiac) required my full and direct attention, intervention and personal management. The time I documented below is in addition to time spent performing reported procedures but includes the following listed in this critical care notation. Total Time Total Critical Care Time: 65 Medical Decision Making Medical Records Medical records reviewed: Yes I reviewed the patient's medical records. MR Comment: Review of custodial records demonstrates patient is not on any blood thinners, no known history of atrial fibrillation. [place] Inquiry Pt receiving controlled substance: No Vital Signs Vital Signs: 08/06/24 09:14 08/06/24 09:30 08/06/24 09:52 Temperature 97.7 F Temperature Source Oral Pulse Rate 120 H 95 H Pulse Rate [Left Radial] 147 H Respiratory Rate 20 21 22 Blood Pressure 111/80 82/56 L Blood Pressure [Right Arm] 111/80 Blood Pressure Mean [Right Arm] 90 02 Sat by Pulse Oximetry 3 L 98 90 L Oxygen Delivery Method Nasal Cannula Room Air Room Air Oxygen Flow Rate (LPM) 3 08/06/24 10:10 08/06/24 10:31 08/06/24 11:02 Temperature Temperature Source Pulse Rate 45 L 147 H 104 H Pulse Rate [Left Radial] Respiratory Rate 40 H Blood Pressure 91/58 L 99/70 L 62/40 L Blood Pressure [Right Arm] Blood Pressure Mean [Right Arm] 02 Sat by Pulse Oximetry 94 L 97 98 Oxygen Delivery Method Room Air Room Air Room Air Oxygen Flow Rate (LPM) 08/06/24 11:06 08/06/24 11:07 08/06/24 11:15 Temperature Temperature Source Pulse Rate 73 120 H 96 H Pulse Rate [Left Radial] Respiratory Rate Blood Pressure 81/53 L 82/65 L 91/64 L Blood Pressure [Right Arm] Blood Pressure Mean [Right Arm] 02 Sat by Pulse Oximetry 97 97 97 Oxygen Delivery Method Room Air Room Air Room Air Oxygen Flow Rate (LPM) Lab Data Labs: Lab Results 08/06/24 09:41: WBC 9.1, RBC 4.13 L, Hgb 14.0, Hct 44.9, MCV 108.7 H, MCH 33.8 H , MCHC 31.1 L, RDW 15.8, Plt Count 443 H, MPV 9.5, Neut % (Auto) 88.0 H, Lymph % (Auto) 7.5 L, [place] % (Auto) 2.6, Eos % (Auto) 0.4, Baso % (Auto) 1.6, Neut # (Auto) 8.0 H, Lymph # (Auto) 0.7, [place] # (Auto) 0.2, Eos # (Auto) 0.0, Baso # (Auto) 0.2, PT 13.3 H, INR 1.21 H, Sodium 143, Potassium 4.3, Chloride 100, C arbon Dioxide 33 H, Anion Gap 14.3, BUN 42 H, Creatinine 1.40 H, Estimated GFR 36 L, Est GFR ( Amer) 43 L, Glucose 230 H, Lactate 5.2 H, Calcium 8.6, Total Bilirubin 1.1, AST 724 H*, ALT 312 H*, Alkaline Phosphatase 168 H, T roponin I 0.34 H, NT-Pro-B Natriuret Pep 81307 H, Total Protein 7.7, Albumin 3.6, Globulin 4.1 H, Albumin/Globulin Ratio 0.9 L 08/06/24 09:45: VBG pH 7.36, VBG pCO2 55.4 H, VBG pO2 59.5 H, VBG HCO3 30.7 H, V BG Total CO2 32.4 H, VBG O2 Saturation 88.3 H, VBG Base Excess 5.3 H, VBG Lactic Acid 6.7 H 08/06/24 09:41 08/06/24 09:41 Response Orders (Tests/Meds): ED MEDICATIONS Generic Name Dose Route Start Last Admin Trade Name Freq PRN Reason Stop Dose Admin Vancomycin/PEG/NADA/Lysine/Water 1.25 gm in 250 mls @ 125 mls/hr 08/06/24 10:00 08/06/24 10:35 Vancomycin 1.25gm/250ml (Peg) Premix IV 08/06/24 11:59 125 mls/hr ONCE ONE Administration Norepinephrine Bitartrate 8 mg 258 mls @ 3.87 mls/hr 08/06/24 11:09 / Sodium Chloride IV 09/05/24 11:08 .Q24H OWEN Protocol 2 MCG/MIN Sodium Chloride 10 ml 08/06/24 10:22 08/06/24 10:23 Sodium Chloride 0.9% 10ml Syr (Rad Only) IV 09/05/24 10:21 10 ml NEEDED PRN Administration Maintain IV Site Discontinued Medications Generic Name Dose Route Start Last Admin Trade Name Freq PRN Reason Stop Dose Admin Lactated Ringer's 1,000 mls @ 999 mls/hr 08/06/24 09:22 08/06/24 10:35 Lactated Ringer's 1000 Ml Bag IV 08/06/24 10:22 999 mls/hr .Q1H1M ONE Administration Piperacillin Sod/Tazobactam 100 mls @ 200 mls/hr 08/06/24 09:31 08/06/24 10:33 Sod 4.5 gm/ Sodium Chloride IV 08/06/24 10:00 200 mls/hr ONCE ONE Administration Lactated Ringer's 1,000 mls @ 999 mls/hr 08/06/24 10:06 08/06/24 10:11 Lactated Ringer's 1000 Ml Bag IV 08/06/24 11:06 999 mls/hr .Q1H1M ONE Administration Iopamidol 70 ml 08/06/24 10:22 08/06/24 10:23 Iopamidol-370 (76%);100ml Bottle IV 08/06/24 10:23 70 ml ONCE ONE Administration Miscellaneous 1 each 08/06/24 09:45 08/06/24 10:44 Vancomycin Consult Request NOTAPPLIC 09/05/24 09:44 1 each CONSULT [facility] Administration Sodium Chloride 50 ml 08/06/24 10:22 08/06/24 10:23 0.9 % Sodium Chloride 50 Ml Vial IV 08/06/24 10:23 50 ml ONCE ONE Administration ORDERS Category Date Time Status CT angio chest PE protocol Stat Cat Scan 08/06/24 09:[address] head/brain wo con Stat Cat Scan 08/06/24 10:04 Completed CXR --portable [XR chest portable] Stat Exams 08/06/24 09:27 Taken BNP [NT Pro Brain Natriuretic Pep.] Stat Lab 08/06/24 09:41 Completed CBC w/Auto Diff [Complete Blood Count Auto Diff] Stat Lab 08/06/24 09:41 Results CMP [Comprehensive Metabolic Panel] Stat Lab 08/06/24 09:41 Completed Complete Blood Count Auto Diff AMLAB Lab 08/07/24 06:00 Ordered Comprehensive Metabolic Panel AMLAB Lab 08/07/24 06:00 Ordered Comprehensive Metabolic Panel Routine Lab 08/06/24 16:00 Ordered Full Resp Panel w/COVID ([facility]) Routine Lab 08/06/24 09:35 Received HIV (1&2) Antibody Rapid Stat Lab 08/06/24 09:41 Received Hep C Ab with Reflex to RNA Stat Lab 08/06/24 09:41 Received Lactic Acid Stat Lab 08/06/24 09:41 Completed Magnesium AMLAB Lab 08/07/24 06:00 Ordered PT INR [Prothrombin Time INR] Stat Lab 08/06/24 09:41 Completed Trop I [Troponin I] Stat Lab 08/06/24 09:41 Completed Troponin I Q3H Lab 08/06/24 12:45 Ordered Troponin I Q3H Lab 08/06/24 15:45 Ordered Urinalysis and Microscopic Stat Lab 08/06/24 09:32 Ordered Blood Culture Stat Micro 08/06/24 09:51 Received VBG [Venous Blood Gas] Stat RT 08/06/24 09:45 Completed ECG Request Stat Y 08/06/24 11:29 Ordered MDM Narrative Medical Decision Narrative: In summary, this 83-year-old female with comorbidities as outlined in the HPI presents to the emergency department today with concerns of hypoxia from custodial. On initial evaluation patient is mentating very close to her baseline but is tachycardic and irregular in A-fib with RVR, has soft blood pressures, saturating 92% on 6 L nasal cannula with rhonchi and rales throughout, mild peripheral edema, soft, nontender abdomen, baseline neurologic deficits. Differential diagnosis includes but is not limited to sepsis, PE, ACS, fluid overload, urinary tract infection, pneumonia, viral infection, electrolyte abnormality, dehydration, kidney dysfunction. Based on these concerns, I ordered serum labs, cardiac workup, blood cultures, VBG, CT head, broad-spectrum antibiotics, IV fluids. ECG personally interpreted demonstrates atrial fibrillation with RVR, rate 161, normal axis, normal QTc, no STEMI. Patient received IV fluids, vancomycin, Zosyn initially for treatment. Because of her soft blood pressure she required fluid resuscitation however with her rhonchi and rales I was concerned about possible fluid overload so she only received 2 L initially of IV fluids not a full 30 mL/kg bolus. Labs personally reviewed demonstrate pH 7.36 with hypercarbia, lactic 6.7 on VBG, CMP notable for kidney injury as well as findings concerning for shock liver, WBC 9.1, hemoglobin 14, thrombocythemia, mildly elevated PT/INR, patient has evidence of fluid overload with BNP 26,500, further reason that patient is not receiving a full sepsis bolus. Her troponin is elevated likely secondary to persistent tachycardia in the setting of A-fib RVR and sepsis. Due to anatomic difficulties cath urine specimen was not obtained, patient did have significant improvement of her heart rate and spontaneously converted out of atrial fibrillation after fluid bolus. XR personally interpreted demonstrates patchy infiltrates concerning for both fluid overload and pneumonia, see radiology read for final interpretation CT imaging personally interpreted demonstrate no acute intracranial abnormality, I do not appreciate pulmonary embolism, there are abnormalities in the bilateral lungs concerning for both fluid overload and infection on my personal interpretation. Radiology reads pending I had an interactive discussion with transfer center for concerns of shock liver, patient at that time was more hemodynamically stable so they did not accept her for transfer. Patient became more unstable with her MAP only in the low 60s despite fluid resuscitation, she was started on norepinephrine drip and her MAP improved to the low 70s. She also has remained in normal sinus rhythm. At this time she does require ICU level care. I again called and had a discussion with MIMI Sheldon in the transfer center. She excepted the patient for a wait list ICU bed. Shortly thereafter, a bed became available. Accepting physician is Dr. Sotelo at [facility] for continued management at [facility] ICU. Patient and family are amenable to this plan. Patient transferred in improved but critical condition
[2024-08-06 09:41] LABS: Adenovirus,PCR Not Detected (NotDetected); Bordetella Pertussis Not Detected (NotDetected); Chlamydophila Pneumoniae, PCR Not Detected (NotDetected); Coronavirus 19, PCR Not Detected (NotDetected); Coronavirus 229E Not Detected (NotDetected); Coronavirus NL63 Not Detected (NotDetected); Coronavirus OC43 Not Detected (NotDetected); Coronovirus HKU1,PCR Not Detected (NotDetected); Human Metapneumovirus Not Detected (NotDetected); Influenza A, PCR Not Detected (NotDetected); Influenza AH1, 2009 Not Detected (NotDetected); Influenza AH1, PCR Not Detected (NotDetected); Influenza AH3,PCR Not Detected (NotDetected); Influenza B, PCR Not Detected (NotDetected); Mycoplasma Pneumoniae, PCR Not Detected (NotDetected); Parainfluenza 1, PCR Not Detected (NotDetected); Parainfluenza 2, PCR Not Detected (NotDetected); Parainfluenza 3, PCR Not Detected (NotDetected); Parainfluenza 4, PCR Not Detected (NotDetected); Respiratory Syncytial Virus Not Detected (NotDetected); Rhinovirus/Enterovirus Not Detected (NotDetected)
[2024-08-06 09:56] LABS: Albumin Level 3.6 g/dl (3.5-5.0); Chloride 100 mmol/L (98-107); Potassium 4.3 mmoL/L (3.5-5.1); Sodium 143 mmol/L (136-145)
[2024-08-06 09:57] LABS: VBG Base Excess 5.3 mmol/L (-2.4-2.3); VBG HCO3 30.7 mmol/L (23-30); VBG Oxygen Saturation 88.3 % (50-70); VBG PH 7.36 mmol/L (7.31-7.41); VBG PO2 59.5 mmol/L (28-40); VBG Total CO2 32.4 mmol/L (23-27)
[2024-08-06 09:59] LABS: VBG PCO2 55.4 mmol/L (35-51)
[2024-08-06 09:59] LABS: Alanine Aminotransferase 312 U/L (12-78); Albumin/Globulin Ratio 0.9 (1.1-1.8); Alkaline Phosphatase 168 U/L (38-126); Anion Gap 14.3 mEq/L (5-15); Aspartate Amino Transferase 724 U/L (14-36); Basophils # 0.2 K/mm3 (0-0.2); Basophils % 1.6 % (0.1-2.0); Bilirubin,Total 1.1 mg/dl (0.2-1.3); Blood Urea Nitrogen 42 mg/dl (7-17); Calcium 8.6 mg/dl (8.4-10.2); Carbon Dioxide 33 mmol/L (22.0-30.0); Eosinophils % 0.4 % (0.1-12.0); Estimated Glomerular Filt Rate 36 ml/min (>60); GFR (African American) 43 ML/MIN (>60); Globulin 4.1 g/dL (1.3-3.2); Glucose 230 mg/dl (74-100); Hematocrit 44.9 % (37.0-47.0); Lymphocytes # 0.7 K/mm3 (0.7-4.5); Lymphocytes % 7.5 % (10-50); Mean Corpuscular HGB Conc 31.1 g/dL (31.8-35.4); Mean Corpuscular Hemoglobin 33.8 pg (27.0-31.2); Mean Corpuscular Volume 108.7 fl (81-99); Mean Platelet Volume 9.5 fl (7.4-10.4); Monocytes # 0.2 K/mm3 (0.1-1.0); Monocytes % 2.6 % (1.7-9.3); Platelet Count 443 K/mm3 (142-424); Red Blood Count 4.13 M/mm3 (4.20-5.40); Red Cell Distribution Width 15.8 % (11.5-17.5); Total Protein,Serum 7.7 g/dl (6.3-8.2); White Blood Count 9.1 K/mm3 (4.8-10.8)
[2024-08-06 10:00] LABS: Lactate Venous 6.7 mmol/L (0.4-2.0)
--- NOTE | 2024-08-06 10:04 | CT_ITS ---
PROCEDURE INFORMATION: Exam: CT Head Without Contrast Exam date and time: 08/06/2024 10:15 AM Age: 83 years old Clinical indication: Altered mental status/memory loss; Additional info: AMS TECHNIQUE: Imaging protocol: Computed tomography of the head without contrast. Radiation optimization: All CT scans at this facility use at least one of these dose optimization techniques: automated exposure control; mA and/or kV adjustment per patient size (includes targeted exams where dose is matched to clinical indication); or iterative reconstruction. COMPARISON: CT HEAD/BRAIN WO CON 08/06/2024 10:15 AM FINDINGS: Brain: There is moderate small vessel disease. There is no evidence of acute parenchymal hemorrhage, extra-axial collection, or acute infarction. There is no mass effect, midline shift, or downward herniation. Cerebral ventricles: No ventriculomegaly. Paranasal sinuses: Visualized sinuses are unremarkable. No fluid levels. Mastoid air cells: Visualized mastoid air cells are well aerated. Bones: Unremarkable. No acute fracture. Soft tissues: Unremarkable. IMPRESSION: Moderate small vessel disease. No evidence of acute intracranial process.
[2024-08-06] MEDS: LACTATED RINGERS 1000ML 1,000 ML 999 ML IV ×2 (10:11→10:35)
[2024-08-06 10:13] LABS: MANUAL DIFFERENTIAL MANUAL DIFFERENTIAL (MANUAL DIFF)
[2024-08-06 10:14] LABS: INR 1.21 (0.9-1.1); Prothrombin Time 13.3 seconds (10.1-12.5)
[2024-08-06 10:16] LABS: Lactic Acid 5.2 mmol/L (0.7-2.1); Troponin I 0.34 ng/ml (0.00-0.034)
--- NOTE | 2024-08-06 10:18 | PC.NURSE ---
aware trop of 0.34 and lactic 5.2
[2024-08-06 10:21] LABS: NT Pro Brain Natriuretic Pep. 26500 pg/mL (0-450)
[2024-08-06] MEDS: IOPAMIDOL-370 (76%);100ML BOTTLE 70 ML IV (10:23)
[2024-08-06] MEDS: 0.9 % SODIUM CHLORIDE 50 ML VIAL IV (10:23)
[2024-08-06] MEDS: SODIUM CHLORIDE 0.9% 10ML SYR (RAD ONLY) 10 ML IV (10:23)
[2024-08-06] MEDS: PIPERACILLIN/TAZO 4.5 GM in 0.9 % SODIUM CHLORIDE 100 ML IV (10:33)
[2024-08-06] MEDS: VANCOMYCIN/WATER FOR INJ (PEG) 1.25 GM/250 ML PIGGYBACK IV (10:35)
[2024-08-06] MEDS: VANCOMYCIN CONSULT REQUEST 1 EACH NOTAPPLIC (10:44)
--- NOTE | 2024-08-06 10:47 | PC.NURSE ---
Called [facility] to speak with them about getting this pt transferred. Dr Caceres is speaking with [facility] now
--- NOTE | 2024-08-06 11:14 | PC.NURSE ---
Called [facility] to speak with this pt due to meeting ICU requirements at this time on hold with [facility] while they page the hospitalist. Dr Caceres is speaking with [facility] at this time
--- NOTE | 2024-08-06 11:23 | PC.NURSE ---
advised Dr Caceres that pt was accepted at and is on an ICU bed wait due to Sepsis with a Shock Liver and we dont have hepatology
--- NOTE | 2024-08-06 11:30 | PC.NURSE ---
attempted to call report to [facility], no answer.
--- NOTE | 2024-08-06 11:33 | ECG_ITS ---
APPROVED REPORT Exam: Resting ECG HR:84 bpm ECG Measurements Heart Rate 84 AXES MT 108 P 50 QRSd 110 QRS 33 QT 399 T 31 QTc 441 Conclusion SINUS RHYTHM WITH MARKED SINUS ARRHYTHMIA WITH SHORT MT INTERVAL BORDERLINE ECG No STEMI Electronically signed by : FOUZIA MASON, 08/06/2024 15:35:55
--- NOTE | 2024-08-06 11:33 | P.HP_ITS ---
[facility] Disclaimer: The information contained in this section may have been updated after the patient was seen, as this information can be updated by other users. Medical History Sciatica Obesity (BMI 30.0-34.9) Tremors of nervous system Intracerebral hemorrhage Allergic rhinitis Chronic pain Musculoskeletal pain of extremity Compression fracture of body of thoracic vertebra Social History Smoking Status: Never smoker alcohol intake: never counseling provided: none substance use type: denies use current occupational status: retired Travel in the last 8 weeks: None household members: spouse housing: [facility] current occupational exposures/hazards: No caffeine: Yes Other Medical History Have you received the Flu Vaccine for this season: Yes Have you received the Pneumonia Vaccine: Yes Review of Systems Constitutional Constitutional: Denies headache(s) and Reports weakness (Generalized, patient also has baseline left-sided deficits) ENT Ears, Nose, Mouth, and Throat: Denies dizziness and Denies headache(s) *Musculoskeletal Musculoskeletal: Denies numbness and Denies tingling *Neurologic Neurologic: Denies dizziness, Denies headache(s), Denies numbness, Denies tingling and Reports weakness (Generalized, patient also has baseline left-sided deficits) Meds Home Medications and Allergies Home Medications ?Medication ?Instructions ?Recorded ?Confirmed ?Type montelukast 10 mg tablet 10 mg PO HS Allergy symptoms #90 11/05/19 05/01/24 Rx tabs atorvastatin 20 mg tablet 20 mg PO HS Cholesterol #90 tabs 11/06/19 05/01/24 Rx ipratropium 0.5 mg-albuterol 3 mg 3 ml inhalation Q6HP PRN SHORTNESS 12/11/19 05/01/24 History (2.5 mg base)/3 mL nebulization OF BREATH soln levetiracetam 500 mg tablet 500 mg PO BID SEIZURES 12/11/19 05/01/24 History levothyroxine 88 mcg tablet 100 mcg PO DAILY HYPOTHYROIDSIM 12/11/19 05/01/24 History baclofen 10 mg tablet 5 mg PO BID muscle spasm 06/15/20 05/01/24 History donepezil 5 mg tablet 10 mg PO DAILY dementia 06/15/20 05/01/24 History ropinirole 0.5 mg tablet 2 mg PO HS rls 06/15/20 05/01/24 History fluticasone propionate 50 1 spray intranasal DAILY Allergy 04/08/21 05/01/24 History mcg/actuation nasal symptoms spray,suspension furosemide 20 mg tablet 20 mg PO DAILY Fluid 04/08/21 05/01/24 History ketotifen fumarate 0.025 % (0.035 1 drp ophthalmic (eye) HS itchy 04/08/2105/01 History %) eye drops watery eyes loratadine 10 mg tablet 10 mg PO DAILY Allergy symptoms 04/08/21 05/01/24 History spironolactone 25 mg tablet 25 mg PO DAILY fluid 04/08/21 05/01/24 History benzocaine 20 % mucosal paste 1 applic mucous membrane TID PRN 05/26/22 05/01/24 Rx (Orabase (benzocaine)) mouth irritation #571.2 grams pregabalin 150 mg capsule 150 mg PO TID Depression #90 caps 07/29/22 05/01/24 Rx carvedilol 6.25 mg tablet 3.125 mg PO BID High blood pressure 05/01/24 05/01/24 History docusate sodium 250 mg capsule 250 mg PO BID 05/01/24 05/01/24 History pantoprazole 40 mg tablet,delayed 40 mg PO DIRECTED 05/01/24 05/01/24 History release cefdinir 300 mg capsule 300 mg PO BID 10 days #20 caps 05/02/24 Rx New Prescriptions to Start Prescriptions: Allergies Allergy/AdvReac Type Severity Reaction Status Date / Time carbamazepine Allergy Intermediate I-ITCHING Verified 04/22/24 18:50 promethazine Allergy Mild MAKES Verified 04/22/24 18:50 HYPER Exam Data for Last 24 hours Vital signs and Labs for Last 24 Hours: Temp Pulse Resp BP Pulse Ox O2 Del Method O2 Flow Rate 97.7 F 96 H 40 H 91/64 L 97 Room Air 3 08/06/24 09:14 08/06/24 11:15 08/06/24 10:10 08/06/24 11:15 08/06/24 11:15 08/06/24 11:15 08/06/24 09:14 Laboratory Results - last 24 hr 08/06/24 09:41: WBC 9.1, RBC 4.13 L, Hgb 14.0, Hct 44.9, MCV 108.7 H, MCH 33.8 H , MCHC 31.1 L, RDW 15.8, Plt Count 443 H, MPV 9.5, Neut % (Auto) 88.0 H, Lymph % (Auto) 7.5 L, [place] % (Auto) 2.6, Eos % (Auto) 0.4, Baso % (Auto) 1.6, Neut # (Auto) 8.0 H, Lymph # (Auto) 0.7, [place] # (Auto) 0.2, Eos # (Auto) 0.0, Baso # (Auto) 0.2, PT 13.3 H, INR 1.21 H, Sodium 143, Potassium 4.3, Chloride 100, Carbon Dioxide 33 H, Anion Gap 14.3, BUN 42 H, Creatinine 1.40 H, Estimated GFR 36 L, Est GFR ( Amer) 43 L, Glucose 230 H, Lactate 5.2 H, Calcium 8.6, Total Bilirubin 1.1, AST 724 H*, ALT 312 H*, Alkaline Phosphatase 168 H, Troponin I 0.34 H, NT-Pro-B Natriuret Pep 66408 H, Total Protein 7.7, Albumin 3.6, Globulin 4.1 H, Albumin/Globulin Ratio 0.9 L 08/06/24 09:45: VBG pH 7.36, VBG pCO2 55.4 H, VBG pO2 59.5 H, VBG HCO3 30.7 H, VBG Total CO2 32.4 H, VBG O2 Saturation 88.3 H, VBG Base Excess 5.3 H, VBG Lactic Acid 6.7 H I & O for Last 24 hours: Intake & Output 08/03/24 08/04/24 08/05/24 08/06/24 23:59 23:59 23:59 23:59 Weight 81.647 kg
--- NOTE | 2024-08-06 11:37 | P.CONPHA_ITS ---
Pharmacy Consult Date: 08/06/24 Time: 11:37 Referring provider: DR. SALAZAR Reason for Consult:: VANCOMCYIN DOSING Allergies Allergy/AdvReac Type Severity Reaction Status Date / Time carbamazepine Allergy Intermediate I-ITCHING Verified 04/22/24 18:50 promethazine Allergy Mild MAKES Verified 04/22/24 18:50 HYPER Home Medications ?Medication ?Instructions ?Recorded ?Confirmed ?Type montelukast 10 mg tablet 10 mg PO HS Allergy symptoms #90 11/05/19 05/01/24 Rx tabs atorvastatin 20 mg tablet 20 mg PO HS Cholesterol #90 tabs 11/06/19 05/01/24 Rx ipratropium 0.5 mg-albuterol 3 mg 3 ml inhalation Q6HP PRN SHORTNESS 12/11/19 05/01/24 History (2.5 mg base)/3 mL nebulization OF BREATH soln levetiracetam 500 mg tablet 500 mg PO BID SEIZURES 12/11/19 05/01/24 History levothyroxine 88 mcg tablet 100 mcg PO DAILY HYPOTHYROIDSIM 12/11/19 05/01/24 History baclofen 10 mg tablet 5 mg PO BID muscle spasm 06/15/20 05/01/24 History donepezil 5 mg tablet 10 mg PO DAILY dementia 06/15/20 05/01/24 History ropinirole 0.5 mg tablet 2 mg PO HS rls 06/15/20 05/01/24 History fluticasone propionate 50 1 spray intranasal DAILY Allergy 04/08/21 05/01/24 History mcg/actuation nasal symptoms spray,suspension furosemide 20 mg tablet 20 mg PO DAILY Fluid 04/08/21 05/01/24 History ketotifen fumarate 0.025 % (0.035 1 drp ophthalmic (eye) HS itchy 04/08/21 05/01/24 History %) eye drops watery eyes loratadine 10 mg tablet 10 mg PO DAILY Allergy symptoms 04/08/21 05/01/24 History spironolactone 25 mg tablet 25 mg PO DAILY fluid 04/08/21 05/01/24 History benzocaine 20 % mucosal paste 1 applic mucous membrane TID PRN 05/26/22 05/01/24 Rx ([facility] (benzocaine)) mouth irritation #571.2 grams pregabalin 150 mg capsule 150 mg PO TID Depression #90 caps 07/29/22 05/01/24 Rx carvedilol 6.25 mg tablet 3.125 mg PO BID High blood pressure 05/01/24 05/01/24 History docusate sodium 250 mg capsule 250 mg PO BID 05/01/24 05/01/24 History pantoprazole 40 mg tablet,delayed 40 mg PO DIRECTED 05/01/24 05/01/24 History release cefdinir 300 mg capsule 300 mg PO BID 10 days #20 caps 05/02/24 Rx New Prescriptions to Start Prescriptions: Height: 1.65 m Weight: 81.647 kg Laboratory Results:: Laboratory Results - last 24 hr 08/06/24 09:41: WBC 9.1, RBC 4.13 L, Hgb 14.0, Hct 44.9, MCV 108.7 H, MCH 33.8 H , MCHC 31.1 L, RDW 15.8, Plt Count 443 H, MPV 9.5, Neut % (Auto) 88.0 H, Lymph % (Auto) 7.5 L, Winkler % (Auto) 2.6, Eos % (Auto) 0.4, Baso % (Auto) 1.6, Neut # (Auto) 8.0 H, Lymph # (Auto) 0.7, Winkler # (Auto) 0.2, Eos # (Auto) 0.0, Baso # (Auto) 0.2, PT 13.3 H, INR 1.21 H, Sodium 143, Potassium 4.3, Chloride 100, Carbon Dioxide 33 H, Anion Gap 14.3, BUN 42 H, Creatinine 1.40 H, Estimated GFR 36 L, Est GFR ( Amer) 43 L, Glucose 230 H, Lactate 5.2 H, Calcium 8.6, Total Bilirubin 1.1, AST 724 H*, ALT 312 H*, Alkaline Phosphatase 168 H, Troponin I 0.34 H, NT-Pro-B Natriuret Pep 50309 H, Total Protein 7.7, Albumin 3.6, Globulin 4.1 H, Albumin/Globulin Ratio 0.9 L 08/06/24 09:45: VBG pH 7.36, VBG pCO2 55.4 H, VBG pO2 59.5 H, VBG HCO3 30.7 H, VBG Total CO2 32.4 H, VBG O2 Saturation 88.3 H, VBG Base Excess 5.3 H, VBG Lactic Acid 6.7 H Medical History: Medical History (Updated 08/06/24 @ 11:36 by Sukhjinder Caceres MD) Sciatica Obesity (BMI 30.0-34.9) Tremors of nervous system Intracerebral hemorrhage Allergic rhinitis Chronic pain Musculoskeletal pain of extremity Compression fracture of body of thoracic vertebra Assessment and Plan Assessment and plan all Dx Assessment and Plan for all problems:: Pharmacokinetic dosing service Objective: Patient: Floor: Age: 83 yo Serum creatinine: 1.4 mg/dL Height: 65.0 Inches Weight (kg): 81.6 Assessment: IBW (kg): 57.00 Dosing wt(kg): 81.6 Estimated Creatinine clearance (ml/min): 27.4 CRCL method: Cockcroft and Gault using ibw(default). Drug selected: Vancomycin Loading dose (mg): 0 Vd (liters): 65.3 (factor used: 0.8 L/kg) Jonn (hr-1): 0.027 Half life (hrs): 25.67 Recommended dose: 1500 mg Interval: 36 hrs Infusion time (hrs): 2.0 Predicted peak (mcg/mL): 36.0 Predicted trough (mcg/mL): 14.38 Total body weight is being used for vancomycin dosing. [ ] Recommendations: PATIENT RECEIVED VANCOMYCIN 1250 MG X1 DOSE IN ER. RECOMMEND Vancomycin 1500 mg q 36 hrs with an expected Cpeak of 36.0 mcg/ml and an expected Ctrough of 14.38 mcg/ml ----Vanco only - ignore for aminoglycosides----- CLvanco= 1.76 L/hr AUC 0-24 /RAE Data: RAE 0.5 mcg/mL: AUC/RAE: 1136.4 RAE 1.0 mcg/mL: AUC/RAE: 568.2 --------- RAE 1.5 mcg/mL: AUC/RAE: 378.8 RAE 2.0 mcg/mL: AUC/RAE: 284.1
[2024-08-06] MEDS: NOREPINEPHRINE BITARTRATE 8 MG in 0.9 % SODIUM CHLORIDE 250 ML 3.87 MG IV (11:45)
--- NOTE | 2024-08-06 11:53 | PC.NURSE ---
atempted to call report to [facility] ICU, no answer when transferred
--- NOTE | 2024-08-06 12:07 | PC.NURSE ---
EMS called for transfer of this pt.
[2024-08-06 12:08] LABS: Lymphocytes % 20 % (10-50); Macrocytosis 2+; Neutrophils % 80 % (42-76); Platelet Estimate Slight Increase; Total Cells Counted 100
--- NOTE | 2024-08-06 12:08 | PC.NURSE ---
report called Mackenzie, nurse at [facility]
--- NOTE | 2024-08-06 12:35 | PC.NURSE ---
EMS has arrived for this pt to be transferred
[2024-08-06 12:59] LABS: HIV (1&2) Antibody Rapid NONREACTIVE (NONREACTIVE)
[2024-08-06 13:58] LABS: Reflex Lactic Add Lactic Reflex
[2024-08-07 09:15] LABS: HCV Ab Non Reactive (Non Reactive)
== END 2024-08-06 13:15 | disposition short-term general hospital (02) ==
PROVIDERS: Emergency Provider Emergency Medicine; PCP Nurse Practitioner Family
DX: K72.00 Acute and subacute hepatic failure without coma (principal); E87.20 Acidosis, unspecified; I48.0 Paroxysmal atrial fibrillation; A41.9 Sepsis, unspecified organism; R06.02 Shortness of breath; R06.00 Dyspnea, unspecified; R41.82 Altered mental status, unspecified; G81.94 Hemiplegia, unspecified affecting left nondominant side
CPT/HCPCS: 70450; 71045; 71275; 80053; 82803; 83605; 83880; 84484; 85007; 85025; 85027; 85610; 86803; 87040; 87389; 87633; 93005; 96361; 96365; 96366; 99291; J2543; J7120; Q9967

== ENCOUNTER 2024-09-08 16:40 | Outpatient (CLI) | payer MEDICARE, MEDICAID, SELFPAY ==
[2024-09-08 16:50] LABS: Microscopic, Urine URINE MICROSCOPIC (MICROSCOPIC)
[2024-09-08 17:00] LABS: Appearance,Urine CLEAR (Clear); Bilirubin,Urine Negative (Negative); Blood, Urine Negative (Negative); Color,Urine YELLOW (Yellow); Glucose,Urine (UA) Negative (Negative); Ketones,Urine Negative (Negative); Leukocyte Esterase,Urine Negative (Negative); Nitrate,Urine Negative (Negative); PH,Urine 7.5 (5.0-8.5); Protein,Urine Negative (Negative)
== END 2024-09-08 23:59 | disposition home or self-care (01) ==
LOC: LAB.DROPOF 16:42
PROVIDERS: Nurse Practitioner Family; PCP Internal Medicine Adolescent Medicine; Visit Provider Internal Medicine Adolescent Medicine
DX: R41.82 Altered mental status, unspecified (principal)
CPT/HCPCS: 81001

== ENCOUNTER 2024-10-19 15:24 | Outpatient (CLI) | payer OTHER, SELFPAY ==
[2024-10-19 15:42] LABS: Microscopic, Urine URINE MICROSCOPIC (MICROSCOPIC)
[2024-10-19 16:00] LABS: Appearance,Urine CLEAR (Clear); Bilirubin,Urine Negative (Negative); Blood, Urine Negative (Negative); Color,Urine YELLOW (Yellow); Glucose,Urine (UA) Negative (Negative); Ketones,Urine Negative (Negative); Leukocyte Esterase,Urine Negative (Negative); Nitrate,Urine Negative (Negative); Protein,Urine Negative (Negative); Specific Gravity, Urine <= 1.005 (1.005-1.030)
[2024-10-19 17:19] LABS: WBC,Urine Occasional #/hpf (0-3)
[2024-10-19 17:20] LABS: Bacteria,Urine Trace /lpf
== END 2024-10-19 23:59 | disposition home or self-care (01) ==
LOC: LAB.DROPOF 15:28
PROVIDERS: PCP Nurse Practitioner Family; Visit Provider Nurse Practitioner Family
DX: F41.0 Panic disorder [episodic paroxysmal anxiety] (principal)
CPT/HCPCS: 81001